=== PATIENT | female | born 1945 | race Caucasian/White ===

== ENCOUNTER 2022-07-01 01:47 | Inpatient (IN) | payer MEDICARE, MEDICAID, SELFPAY ==
[2022-07-01] VITALS (42 sets, daily range): BP systolic 60–147; BP diastolic 27–80; PULSE 76–140; RESP 17–46; TEMP 36.3–40.8; O2SAT 91–99; BMI 25.2
--- NOTE | 2022-07-01 | ECG_ITS ---
Test Reason : SEPSIS Blood Pressure : / mmHG Vent. Rate : 139 BPM Atrial Rate : 139 BPM P-R Int : 136 ms QRS Dur : 084 ms QT Int : 302 ms P-R-T Axes : 033 -85 033 degrees QTc Int : 459 ms Sinus tachycardia Left axis deviation Abnormal ECG When compared with ECG of 05-JUN-2017 11:33, Criteria for Inferior infarct are no longer Present Referred By: Gunner Schmidt Electronically Signed By:MAX VARGAS MD
--- NOTE | ~2022-07-01 | FL_ITS ---
EXAMINATION: XR FLUOROSCOPY WITH IMAGES CLINICAL INFORMATION: Stent placement COMPARISON: CT abdomen pelvis 07/01/2022. TECHNIQUE: Fluoroscopy Supervised By: Dr. Denney. Fluoroscopy Time: 11.6 seconds. Cumulative Dose: 3.33 mGy. DAP: 627 Gycm2. Images: 4. FINDINGS: Digital spot fluoroscopic images demonstrate partial visualization of a right ureterovesicular catheter and partial visualization of multiple right renal calculi. FL/FL guidance in OR IMPRESSION: Intraprocedural fluoroscopy as detailed above.
--- NOTE | ~2022-07-01 | XR_ITS ---
EXAMINATION: XR CHEST CLINICAL INFORMATION: Line insertion. COMPARISON: CXR, 07/01/2022 at 2:[address] from 07/01/2022 at 4:13 AM TECHNIQUE: Frontal view of the chest was obtained. FINDINGS: The tip of the right IJ catheter is at the level of junction of the SVC with the right atrium. No pneumothorax. Lungs are mildly hypoexpanded. No acute pulmonary findings. The small pleural effusions observed on the abdomen CT examination are not well seen radiographically. Cardiac silhouette has normal size and contour. Pulmonary vascular pattern is normal. There is intact appearance of thoracic spinal fusion hardware. There is capsular calcification of bilateral breast implants. XR/XR chest 1V IMPRESSION: * No acute pulmonary disease compared to recent prior radiograph. * No pneumothorax after right IJ line insertion.
--- NOTE | ~2022-07-01 | CT_ITS ---
EXAMINATION: CT ABDOMEN AND PELVIS WITHOUT CONTRAST CLINICAL INFORMATION: UTI. Diffuse abdominal pain. Sepsis. COMPARISON: 06/05/2017 TECHNIQUE: Multidetector volumetric imaging was performed from the superior aspect of the liver through the pubic symphysis. Sagittal and coronal reformatted images were obtained on the technologist's workstation. This CT examination was performed using dose optimization techniques as appropriate, variously including the following: *Automated exposure control *Adjustment of mA and/or kV according to patient size (this includes techniques or standardized protocols for targeted exams where dose is matched to indication/reason for exam; i.e. extremities or head) *Use of iterative reconstruction technique DLP: 627 mGy-cm FINDINGS: LUNG BASES: Small pleural effusions with bibasilar atelectasis. Calcified bilateral breast implants. LIVER, GALLBLADDER, AND BILIARY TREE: The liver is normal in size, shape, and attenuation. No biliary ductal dilatation. Cyst in the left lobe of the liver noted.. Abnormal appearance of the gallbladder appears chronic with wall thickening along the margin. No stones. PANCREAS: Unremarkable. SPLEEN: Unremarkable. ADRENAL GLANDS: Unremarkable. KIDNEYS AND URETERS: The kidneys are normal in size, shape, and attenuation. Mild right hydronephrosis with a 1.4 cm calculus at the right ureteropelvic junction. This is 16 cm from the posterior axillary line and measures 815 Hounsfield units. There are at least 5 additional right renal calculi, measuring up to 1.4 cm at the upper pole, 10 cm from the posterior axillary line. There are 2 left calculi noted measuring up to 0.2 cm, 8 cm from the posterior axillary line. Perinephric stranding bilaterally. BLADDER: Decompressed with Levy catheter in place. GASTROINTESTINAL TRACT: The stomach is decompressed. Normal caliber small bowel. No obstruction. No colonic wall thickening or inflammation. Normal appendix. Sigmoid diverticulosis without diverticulitis. No free air or free fluid. ABDOMINAL WALL: No significant hernia is appreciated. LYMPH NODES: Normal. VASCULAR: Normal caliber aorta with mild atherosclerotic calcification. PELVIC VISCERA: The uterus and adnexa are unremarkable. OSSEOUS STRUCTURES: No acute or suspicious osseous abnormality. Degenerative changes throughout the spine. Mild degenerative changes of the hips. CT/CT abdomen pelvis wo IV con IMPRESSION: 1. Mild right hydronephrosis with a 1.4 cm calculus at the right ureteropelvic junction. Additional bilateral renal calculi. 2. Small pleural effusions with bibasilar atelectasis. Fleischner guidelines were followed.
--- NOTE | ~2022-07-01 | XR_ITS ---
EXAMINATION: XR CHEST CLINICAL INFORMATION: Sepsis COMPARISON: 06/05/2017 TECHNIQUE: Frontal view of the chest was obtained. FINDINGS: Spinal fusion hardware. The lungs are well expanded. There is no focal consolidation, edema, or effusion. No pneumothorax. The cardiomediastinal silhouette is within normal limits. No acute osseous abnormality. Calcified breast implants. XR/XR chest 1V IMPRESSION: No acute pulmonary disease.
--- NOTE | 2022-07-01 02:12 | ED_ITS ---
HPI - General Adult General Chief complaint: Altered Mental Status Stated complaint: sepsis alert Time Seen by Provider: 07/01/22 01:54 Source: patient, EMS and RN notes reviewed Mode of arrival: EMS Limitations: no limitations History of Present Illness HPI narrative: Patient is 77 years old came from [facility] for temperature of 103.4 degrees. He does have history of AFib dementia spinal stenosis lower leg weakness staff noticed patient with more confused and weak temperature was 103.4 degrees pulse rate 122 blood pressure 133/72 her saturation was in high 80s started on 2 L nasal cannula pulse ox improved to 92% labs were done on 06/29 which showed WBC count of 20.6 with left shift last month patient was treated with antibiotic for 3 days for UTI details not available Related Data Allergies Allergy/AdvReac Type Severity Reaction Status Date / Time No Known Allergies Allergy Unverified 02/27/20 19:23 [No Known Allergies*] Review of Systems Review of Systems: Yes Unobtainable due to mental status PMFSH Social History Social History Advance Directives: No Advance Directives Information Provided: Yes Physical Exam ED Vital Signs: Vital Signs - 24 hr 07/01/22 01:53 07/01/22 02:00 07/01/22 03:22 Temperature 105.5 F H 102.7 F H Pulse Rate 140 H 118 H Respiratory Rate 32 H 24 H Blood Pressure 138/60 118/51 L Pulse Oximetry 91 L 97 96 Oxygen Delivery Method Nasal Cannula Nasal Cannula Oxygen Flow Rate 2 07/01/22 03:49 07/01/22 04:05 07/01/22 04:56 Temperature 101.8 F H 99.9 F Pulse Rate 112 H 106 H Respiratory Rate 22 H 46 H Blood Pressure 108/43 L 86/37 L 75/36 L Pulse Oximetry 97 97 Oxygen Delivery Method Nasal Cannula Nasal Cannula Oxygen Flow Rate 2 2 BMI result Body Mass Index 25.2 Appearance: Alert. Oriented X1-2. No acute distress. Feel mom rectal temperature 105.5 degrees Eyes: PERRLA, No Nystagmus ENT: Pharynx normal. Oral Mucosa moist Neck: Normal inspection. Neck supple. CVS: Normal heart rate and rhythm. Pulses normal. Respiratory: No respiratory distress. Equal air entry bilateral, no wheezing/rales/rhonchi Abdomen: Soft and nontender. Bowel sounds are present, no mass palpable, no CVA tenderness Skin: Skin warm and dry. Normal skin color. Normal skin turgor. Extremities: No lower extremity edema. No calf tenderness Neuro: Oriented X 1-2. Bilateral lower extremity weakness. No sensory deficit.No cerebellar signs , cranial nerves II-XII intact Course Reevaluation(s) Reevaluation #1: Patient noticed to have blood pressure 86/37 on arrival patient's blood pressure was 138/60 gradually dropped patient received IV fluid 30 cc/kilograms IV antibiotic Rocephin given 1 L of normal saline patient has hardly few cc urine output Time: 04:07 Reevaluation #2: Patient's blood pressure 82/40 received 3 L of IV fluid, initially was given Rocephin will add Zosyn also was given albumin will start Levophed drip now CT scan of abdomen showed 1.4 cm right ureteral pelvic junction stone with mild hydro. Case discussed with Dr. blum urologist will see the patient once stabilized case discussed Dr. Londono will take the patient to ICU Time: 05:00 Reevaluation #3: Patient is on Levophed drip pending ICU transfer blood pressure in 80s Medications Administered Generic Name Dose Route Start Last Admin Trade Name Freq PRN Reason Stop Dose Admin Norepinephrine Bitartrate 32 250 mls @ 0 mls/hr 07/01/22 05:00 07/01/22 05:25 mg/ Sodium Chloride IV 0.09 mcg/kg/min .Q0M MICHAEL 2.73 mls/hr Titration Protocol Per Protocol Albumin Human 100 mls @ 100 mls/hr 07/01/22 05:00 07/01/22 05:39 Kedbumin 25 % IV 07/01/22 06:59 Infused Q1H MICHAEL Infusion Discontinued Medications Generic Name Dose Route Start Last Admin Trade Name Freq PRN Reason Stop Dose Admin Sodium Chloride 2,500 mls @ 833.3333 mls/hr 07/01/22 01:56 07/01/22 04:08 Ns IV 07/01/22 04:55 Infused .Q3H STA Infusion Ceftriaxone Sodium 1 gm/ 50 mls @ 100 mls/hr 07/01/22 01:59 07/01/22 03:04 Sodium Chloride IV 07/01/22 02:28 Infused ONCE ONE Infusion Potassium Chloride 10 meq in 100 mls @ 100 mls/hr 07/01/22 03:30 07/01/22 05:31 Potassium Chloride/H20 IV 07/01/22 05:29 100 mls/hr Q1H MICHAEL Administration Sodium Chloride 1,000 mls @ 999 mls/hr 07/01/22 03:46 07/01/22 05:18 Ns IV 07/01/22 04:46 Infused .Q1H1M ONE Infusion Piperacillin Sod/Tazobactam 50 mls @ 100 mls/hr 07/01/22 04:26 07/01/22 05:12 Sod 3.375 gm/ Sodium Chloride IV 07/01/22 04:55 Infused ONCE ONE Infusion Ibuprofen 600 mg 07/01/22 01:54 07/01/22 02:25 Ibuprofen 600 Mg Tablet PO 07/01/22 01:55 600 mg ONCE ONE Administration Medical Decision Making Medical Decision Making [facility] Narrative: Patient in septic shock secondary to UTI and right ureteric stone already received IV fluids and antibiotics , started on Levophed drip pending ICU transfer focused exam for sepsis was done at 05:00 05:42 patient blood pressure 90/42 going to ICU now on Levophed drip Differential Diagnosis Differential Diagnoses: The differential diagnosis associated with the presentation includes UTI/pneumonia/septic shocks / bowel perforation/gram-negative bacteremia Consult Healthcare Provider Management of the patient was discussed with: [employer] Care Manager [employer] Paver Operator, urologist Lab Data [facility] Lab Attestation statement: I reviewed the patient's lab results. 07/01/22 02:03 07/01/22 02:04 Labs: Lab Results 07/01/22 07/01/22 07/01/22 Range/Units 02:03 02:03 02:05 WBC 2.6 L (4.8-10.8) X10*3/uL RBC 4.10 L (4.20-5.50) X10*6/uL Hgb 10.9 L (12.0-16.0) g/dl Hct 35.1 L (37.0-47.0) % MCV 85.6 (80.0-98.0) fL MCH 26.6 L (27.0-33.0) pg MCHC 31.1 (31.0-35.0) g/dl RDW 17.5 H (11.0-16.0) % Plt Count 172 (160-400) X10*3/uL MPV 10.6 (9.4-12.3) fL Immature Gran % (Auto) 0.8 H (0.0-0.4) % Neut % (Auto) 88.7 H (45-73) % Lymph % (Auto) 8.9 L (20-40) % Reagan % (Auto) 0.8 L (2-11) % Eos % (Auto) 0.0 (0-4) % Baso % (Auto) 0.8 (0-2) % Lymph # (Auto) 0.2 L (1.2-4.9) X10*3/uL Reagan # (Auto) 0.0 L (0.1-1.2) X10*3/uL Eos # (Auto) 0.0 (0.0-0.4) X10*3/uL Baso # (Auto) 0.0 (0.0-0.2) X10*3/uL Abs Immat Gran (auto) 0.02 (0.00-0.03) X10*3/uL Absolute Neuts (auto) 2.3 (2.0-8.3) x10*3/uL Absolute Nucleated RBC 0.000 (0.0-0.012) X10*3/uL Nucleated RBC % (auto) 0.0 (0.0-0.2) /100WBC Smear Tech's Comments VERIFIED Sodium (135-145) mmol/L Potassium (3.3-5.1) mmol/L Chloride (96-108) mmol/L Carbon Dioxide (22-29) mmol/L Anion Gap (12-20) BUN (9-16) mg/dL Creatinine (0.5-1.4) mg/dL Estim Creat Clear Calc Estimated GFR Random Glucose (60-115) mg/dL Lactic Acid 3.2 H* (0.5-2.0) mmol/L Lactic Acid F/U @ 2Hr (0.5-2.0) mmol/L Calcium (8.4-10.2) mg/dL Total Bilirubin (0.0-1.0) mg/dL AST (5-31) U/L ALT (0-31) U/L Alkaline Phosphatase (39-117) U/L Troponin I High Sens (<3.5-17.0) ng/L B-Natriuretic Peptide (<100) pg/mL Total Protein (6.5-8.0) g/dL Albumin (3.5-5.0) g/dL Urine Color Urine Appearance Urine pH (5.0-9.0) Ur Specific [place] (1.005-1.025) Urine Protein (Neg-Trace) mg/dL Urine Glucose (UA) (Negative) mg/dL Urine Ketones (Negative) mg/dL Urine Blood (Negative) Urine Nitrite (Negative) Ur Leukocyte Esterase (Negative) Urine RBC (0-2) /HPF Urine WBC (0-5) /HPF Ur Squamous Epith Cells (0-2) /HPF Urine Bacteria (None Seen) Hyaline Casts (0-2) /LPF Influenza Type A (PCR) NEGATIVE (Negative) Influenza Type B (PCR) NEGATIVE (Negative) RSV RNA Qual (PCR) NEGATIVE (Negative) SARS-CoV-2 RNA (RT-PCR) NEGATIVE (Negative) 07/01/22 07/01/22 07/01/22 Range/Units 02:43 02:43 02:48 WBC (4.8-10.8) X10*3/uL RBC (4.20-5.50) X10*6/uL Hgb (12.0-16.0) g/dl Hct (37.0-47.0) % MCV (80.0-98.0) fL MCH (27.0-33.0) pg MCHC (31.0-35.0) g/dl RDW (11.0-16.0) % Plt Count (160-400) X10*3/uL MPV (9.4-12.3) fL Immature Gran % (Auto) (0.0-0.4) % Neut % (Auto) (45-73) % Lymph % (Auto) (20-40) % Reagan % (Auto) (2-11) % Eos % (Auto) (0-4) % Baso % (Auto) (0-2) % Lymph # (Auto) (1.2-4.9) X10*3/uL Reagan # (Auto) (0.1-1.2) X10*3/uL Eos # (Auto) (0.0-0.4) X10*3/uL Baso # (Auto) (0.0-0.2) X10*3/uL Abs Immat Gran (auto) (0.00-0.03) X10*3/uL Absolute Neuts (auto) (2.0-8.3) x10*3/uL Absolute Nucleated RBC (0.0-0.012) X10*3/uL Nucleated RBC % (auto) (0.0-0.2) /100WBC Smear Tech's Comments Sodium 138 (135-145) mmol/L Potassium 2.3 L* (3.3-5.1) mmol/L Chloride 114 H (96-108) mmol/L Carbon Dioxide 12 L (22-29) mmol/L Anion Gap 14 (12-20) BUN 24 H (9-16) mg/dL Creatinine 1.33 (0.5-1.4) mg/dL Estim Creat Clear Calc 32.0 Estimated GFR 39 Random Glucose 86 (60-115) mg/dL Lactic Acid (0.5-2.0) mmol/L Lactic Acid F/U @ 2Hr (0.5-2.0) mmol/L Calcium 5.7 L* (8.4-10.2) mg/dL Total Bilirubin 1.0 (0.0-1.0) mg/dL AST 17 (5-31) U/L ALT 10 (0-31) U/L Alkaline Phosphatase 180 H (39-117) U/L Troponin I High Sens 8.8 (<3.5-17.0) ng/L B-Natriuretic Peptide (<100) pg/mL Total Protein 4.3 L (6.5-8.0) g/dL Albumin 1.9 L (3.5-5.0) g/dL Urine Color Dark Yellow Urine Appearance Turbid Urine pH 5.5 (5.0-9.0) Ur Specific [place] 1.015 (1.005-1.025) Urine Protein 300 (3+) H (Neg-Trace) mg/dL Urine Glucose (UA) Negative (Negative) mg/dL Urine Ketones Trace (Negative) mg/dL Urine Blood Moderate (2+) H (Negative) Urine Nitrite Negative (Negative) Ur Leukocyte Esterase Large (3+) H (Negative) Urine RBC 11-20 H (0-2) /HPF Urine WBC >50 H (0-5) /HPF Ur Squamous Epith Cells 6-10 (0-2) /HPF Urine Bacteria 3+ (None Seen) Hyaline Casts 0-2 (0-2) /LPF Influenza Type A (PCR) (Negative) Influenza Type B (PCR) (Negative) RSV RNA Qual (PCR) (Negative) SARS-CoV-2 RNA (RT-PCR) (Negative) 07/01/22 07/01/22 07/01/22 Range/Units 03:16 04:36 04:36 WBC 6.9 (4.8-10.8) X10*3/uL RBC 3.62 L (4.20-5.50) X10*6/uL Hgb 9.7 L (12.0-16.0) g/dl Hct 32.0 L (37.0-47.0) % MCV 88.4 (80.0-98.0) fL MCH 26.8 L (27.0-33.0) pg MCHC 30.3 L (31.0-35.0) g/dl RDW 17.3 H (11.0-16.0) % Plt Count 147 L (160-400) X10*3/uL MPV 10.4 (9.4-12.3) fL Immature Gran % (Auto) 1.6 H (0.0-0.4) % Neut % (Auto) 92.7 H (45-73) % Lymph % (Auto) 4.2 L (20-40) % Reagan % (Auto) 1.2 L (2-11) % Eos % (Auto) 0.0 (0-4) % Baso % (Auto) 0.3 (0-2) % Lymph # (Auto) 0.3 L (1.2-4.9) X10*3/uL Reagan # (Auto) 0.1 (0.1-1.2) X10*3/uL Eos # (Auto) 0.0 (0.0-0.4) X10*3/uL Baso # (Auto) 0.0 (0.0-0.2) X10*3/uL Abs Immat Gran (auto) 0.11 H (0.00-0.03) X10*3/uL Absolute Neuts (auto) 6.4 (2.0-8.3) x10*3/uL Absolute Nucleated RBC 0.000 (0.0-0.012) X10*3/uL Nucleated RBC % (auto) 0.0 (0.0-0.2) /100WBC Smear Tech's Comments Sodium (135-145) mmol/L Potassium (3.3-5.1) mmol/L Chloride (96-108) mmol/L Carbon Dioxide (22-29) mmol/L Anion Gap (12-20) BUN (9-16) mg/dL Creatinine (0.5-1.4) mg/dL Estim Creat Clear Calc Estimated GFR Random Glucose (60-115) mg/dL Lactic Acid (0.5-2.0) mmol/L Lactic Acid F/U @ 2Hr 3.8 H* (0.5-2.0) mmol/L Calcium (8.4-10.2) mg/dL Total Bilirubin (0.0-1.0) mg/dL AST (5-31) U/L ALT (0-31) U/L Alkaline Phosphatase (39-117) U/L Troponin I High Sens (<3.5-17.0) ng/L B-Natriuretic Peptide 82 (<100) pg/mL Total Protein (6.5-8.0) g/dL Albumin (3.5-5.0) g/dL Urine Color Urine Appearance Urine pH (5.0-9.0) Ur Specific [place] (1.005-1.025) Urine Protein (Neg-Trace) mg/dL Urine Glucose (UA) (Negative) mg/dL Urine Ketones (Negative) mg/dL Urine Blood (Negative) Urine Nitrite (Negative) Ur Leukocyte Esterase (Negative) Urine RBC (0-2) /HPF Urine WBC (0-5) /HPF Ur Squamous Epith Cells (0-2) /HPF Urine Bacteria (None Seen) Hyaline Casts (0-2) /LPF Influenza Type A (PCR) (Negative) Influenza Type B (PCR) (Negative) RSV RNA Qual (PCR) (Negative) SARS-CoV-2 RNA (RT-PCR) (Negative) 07/01/22 Range/Units 04:36 WBC (4.8-10.8) X10*3/uL RBC (4.20-5.50) X10*6/uL Hgb (12.0-16.0) g/dl Hct (37.0-47.0) % MCV (80.0-98.0) fL MCH (27.0-33.0) pg MCHC (31.0-35.0) g/dl RDW (11.0-16.0) % Plt Count (160-400) X10*3/uL MPV (9.4-12.3) fL Immature Gran % (Auto) (0.0-0.4) % Neut % (Auto) (45-73) % Lymph % (Auto) (20-40) % Reagan % (Auto) (2-11) % Eos % (Auto) (0-4) % Baso % (Auto) (0-2) % Lymph # (Auto) (1.2-4.9) X10*3/uL Reagan # (Auto) (0.1-1.2) X10*3/uL Eos # (Auto) (0.0-0.4) X10*3/uL Baso # (Auto) (0.0-0.2) X10*3/uL Abs Immat Gran (auto) (0.00-0.03) X10*3/uL Absolute Neuts (auto) (2.0-8.3) x10*3/uL Absolute Nucleated RBC (0.0-0.012) X10*3/uL Nucleated RBC % (auto) (0.0-0.2) /100WBC Smear Tech's Comments Sodium 137 (135-145) mmol/L Potassium 3.0 L D (3.3-5.1) mmol/L Chloride 109 H (96-108) mmol/L Carbon Dioxide 15 L (22-29) mmol/L Anion Gap 16 (12-20) BUN 28 H (9-16) mg/dL Creatinine 1.82 H (0.5-1.4) mg/dL Estim Creat Clear Calc 23.4 Estimated GFR 27 Random Glucose 97 (60-115) mg/dL Lactic Acid (0.5-2.0) mmol/L Lactic Acid F/U @ 2Hr (0.5-2.0) mmol/L Calcium 6.6 L D (8.4-10.2) mg/dL Total Bilirubin (0.0-1.0) mg/dL AST (5-31) U/L ALT (0-31) U/L Alkaline Phosphatase (39-117) U/L Troponin I High Sens (<3.5-17.0) ng/L B-Natriuretic Peptide (<100) pg/mL Total Protein (6.5-8.0) g/dL Albumin (3.5-5.0) g/dL Urine Color Urine Appearance Urine pH (5.0-9.0) Ur Specific [place] (1.005-1.025) Urine Protein (Neg-Trace) mg/dL Urine Glucose (UA) (Negative) mg/dL Urine Ketones (Negative) mg/dL Urine Blood (Negative) Urine Nitrite (Negative) Ur Leukocyte Esterase (Negative) Urine RBC (0-2) /HPF Urine WBC (0-5) /HPF Ur Squamous Epith Cells (0-2) /HPF Urine Bacteria (None Seen) Hyaline Casts (0-2) /LPF Influenza Type A (PCR) (Negative) Influenza Type B (PCR) (Negative) RSV RNA Qual (PCR) (Negative) SARS-CoV-2 RNA (RT-PCR) (Negative) Independent Interpretation I performed an independent interpretation of an: EKG Radiology Impression Radiologist Impression: Sinus tachycardia heart rate 139 beats per minute left axis deviation no acute ST T wave changes no acute ischemia Critical Care Time Critical Care Time Critical Care Time: Yes Total Critical Care Time: 90 Attestation: The patient was critically ill with a high probability of imminent or life threatening deterioration. I spent greater than 95 minutes of discontinuous time evaluating the patient,delivering critical care at the bedside, discussing and evaluating pertinent data with consultants. Critical care time does not include time spent performing separately billable procedures or teaching. Total time spent performing critical care was 90 minutes. Discharge Plan Discharge Clinical Impression: Acute UTI, Septic shock, Kidney stone on right side Patient Disposition: Admitted As Inpatient
[2022-07-01 02:14] LABS: Basophils Percent Auto 0.8 % (0-2); Hematocrit 35.1 % (37.0-47.0); Hemoglobin 10.9 g/dl (12.0-16.0); Imm Gran Abs Auto 0.02 X10*3/uL (0.00-0.03); Imm Gran Pct Auto 0.8 % (0.0-0.4); Lymphocytes Absolute Auto 0.2 X10*3/uL (1.2-4.9); Lymphocytes Percent Auto 8.9 % (20-40); MANUAL DIFF FLAG SCAN; Mean Corpuscular HGB Conc 31.1 g/dl (31.0-35.0); Mean Corpuscular Hemoglobin 26.6 pg (27.0-33.0); Mean Corpuscular Volume 85.6 fL (80.0-98.0); Mean Platelet Volume 10.6 fL (9.4-12.3); Monocytes Percent Auto 0.8 % (2-11); Neutrophils Absolute Auto 2.3 x10*3/uL (2.0-8.3); Neutrophils Percent Auto 88.7 % (45-73); Platelet Count 172 X10*3/uL (160-400); Red Cell Distribution Width 17.5 % (11.0-16.0); SCAN SMEAR FLAG 1; White Blood Count 2.6 X10*3/uL (4.8-10.8)
[2022-07-01] MEDS: 0.9 % Sodium Chloride 2,500 ML 833.33 ML IV (02:20)
[2022-07-01] MEDS: cefTRIAXone sodium 1 GM in 0.9 % Sodium Chloride 50 ML IV (02:24)
[2022-07-01] MEDS: Ibuprofen 600 MG TABLET PO (02:25)
[2022-07-01 02:41] LABS: Lactic Acid 3.2 mmol/L (0.5-2.0)
[2022-07-01 02:42] LABS: SLIDE REVIEW VERIFIED
[2022-07-01 02:50] LABS: Influenza A PCR NEGATIVE (Negative); Influenza B PCR NEGATIVE (Negative); Resp Syncy Virus RNA Qual PCR NEGATIVE (Negative); SARS COV2 PCR INHOUSE NEGATIVE (Negative)
[2022-07-01 03:01] LABS: Appearance Urine Turbid; Color Urine Dark Yellow; Glucose Urine UA Negative (Negative); Leukocyte Esterase Urine Large (3+) (Negative); Nitrite Urine Negative (Negative); PH 5.5 (5.0-9.0); Specific Gravity - Urine 1.015 (1.005-1.025); UMIC TRIGGER UACC YES; Urine Blood Moderate (2+) (Negative); Urine Ketones Trace mg/dL (Negative); Urine Protein 300 (3+) mg/dL (Neg-Trace)
[2022-07-01 03:13] LABS: Troponin-I High Sensitivity 8.8 ng/L (<3.5-17.0)
[2022-07-01 03:15] LABS: Alanine Aminotransferase 10 U/L (0-31); Albumin Level 1.9 g/dL (3.5-5.0); Alkaline Phosphatase 180 U/L (39-117); Anion Gap 14 (12-20); Aspartate Amino Transferase 17 U/L (5-31); Blood Urea Nitrogen 24 mg/dL (9-16); Calcium 5.7 mg/dL (8.4-10.2); Carbon Dioxide 12 mmol/L (22-29); Chloride 114 mmol/L (96-108); Estimated Glomerular Filt Rate 39; Glucose Random 86 mg/dL (60-115); Potassium 2.3 mmol/L (3.3-5.1); Sodium 138 mmol/L (135-145); Total Protein 4.3 g/dL (6.5-8.0)
[2022-07-01 03:22] LABS: Basophils Percent Auto 0.3 % (0-2); Hemoglobin 9.7 g/dl (12.0-16.0); Imm Gran Abs Auto 0.11 X10*3/uL (0.00-0.03); Imm Gran Pct Auto 1.6 % (0.0-0.4); Lymphocytes Absolute Auto 0.3 X10*3/uL (1.2-4.9); Lymphocytes Percent Auto 4.2 % (20-40); MANUAL DIFF FLAG SCAN; Mean Corpuscular HGB Conc 30.3 g/dl (31.0-35.0); Mean Corpuscular Hemoglobin 26.8 pg (27.0-33.0); Mean Corpuscular Volume 88.4 fL (80.0-98.0); Mean Platelet Volume 10.4 fL (9.4-12.3); Monocytes Absolute Auto 0.1 X10*3/uL (0.1-1.2); Monocytes Percent Auto 1.2 % (2-11); Neutrophils Absolute Auto 6.4 x10*3/uL (2.0-8.3); Neutrophils Percent Auto 92.7 % (45-73); Platelet Count 147 X10*3/uL (160-400); Red Blood Count 3.62 X10*6/uL (4.20-5.50); Red Cell Distribution Width 17.3 % (11.0-16.0); SCAN SMEAR FLAG 1; White Blood Count 6.9 X10*3/uL (4.8-10.8)
[2022-07-01 03:26] LABS: UACC Culture Trigger YES; WBC Urine >50 /HPF (0-5)
[2022-07-01 03:27] LABS: Bacteria Urine 3+ (None Seen); Hyaline Casts Urine 0-2 /LPF (0-2)
--- NOTE | 2022-07-01 03:35 | PC.NURSE ---
patient presents to the emergency room with increased confusion per nursing facility staff, patient oriented to person only. responds to stimuli but not answering questions appropriately. patient febrile and tachycardic on arrival to ED, iv lines placed, labs sent, blood cultures sent, cxray done and iv fluids/abx running per sepsis protocol. temp sensing castro catheter placed, patient bladder scanned for 0 mL in bladder. patient on radiation monitor will continue to monitor
[2022-07-01] MEDS: Potassium Chloride/H20 10 MEQ/100 ML PIGGYBACK 100 MEQ IV ×2 (03:49→05:31)
--- NOTE | 2022-07-01 03:50 | P.HPHOSP_ITS ---
History of Present Illness Date of Service: 07/01/22 Chief Complaint: Fever PMFSH Social History Advance Directives: No Advance Directives Information Provided: Yes Meds Allergies Allergy/AdvReac Type Severity Reaction Status Date / Time No Known Allergies Allergy Unverified 02/27/20 19:23 [No Known Allergies*] Active Medications: Current Medications Sodium Chloride (Ns) 2,500 mls @ 833.3333 mls/hr IV .Q3H STA Stop: 07/01/22 04:55 Last Admin: 07/01/22 02:20 Dose: 833.33 mls/hr Potassium Chloride (Potassium Chloride/H20) 10 meq in 100 mls @ 100 mls/hr IV Q1H MICHAEL Stop: 07/01/22 05:29 Last Admin: 07/01/22 03:49 Dose: 100 mls/hr Sodium Chloride (Ns) 1,000 mls @ 999 mls/hr IV .Q1H1M ONE Stop: 07/01/22 04:46 Physical Exam Vital Signs and Narrative: Vital Signs: Last Vital Signs Temp 101.8 F H 07/01/22 03:49 Pulse 112 H 07/01/22 03:49 Resp 22 H 07/01/22 03:49 BP 108/43 L 07/01/22 03:49 Pulse Ox 97 07/01/22 03:49 O2 Del Method 07/01/22 03:49 O2 Flow Rate 2 07/01/22 03:49 Oxygen Flow Rate 2 07/01/22 01:53 BMI result Body Mass Index 25.2 Results Labs 07/01/22 03:16 07/01/22 02:43 Labs: Laboratory Results - last 24 hr 07/01/22 07/01/22 07/01/22 02:03 02:03 02:05 MCV 85.6 MCH 26.6 L MCHC 31.1 RDW 17.5 H Plt Count 172 MPV 10.6 Immature Gran % (Auto) 0.8 H Neut % (Auto) 88.7 H Lymph % (Auto) 8.9 L Dillon % (Auto) 0.8 L Eos % (Auto) 0.0 Baso % (Auto) 0.8 Lymph # (Auto) 0.2 L Dillon # (Auto) 0.0 L Eos # (Auto) 0.0 Baso # (Auto) 0.0 Abs Immat Gran (auto) 0.02 Absolute Neuts (auto) 2.3 Absolute Nucleated RBC 0.000 Nucleated RBC % (auto) 0.0 Smear Tech's Comments VERIFIED Anion Gap Estim Creat Clear Calc Estimated GFR Random Glucose Lactic Acid 3.2 H* Calcium Total Bilirubin AST ALT Alkaline Phosphatase Troponin I High Sens Total Protein Albumin Urine Color Urine Appearance Urine pH Ur Specific [place] Urine Protein Urine Glucose (UA) Urine Ketones Urine Blood Urine Nitrite Ur Leukocyte Esterase Urine RBC Urine WBC Ur Squamous Epith Cells Urine Bacteria Hyaline Casts Influenza Type A (PCR) NEGATIVE Influenza Type B (PCR) NEGATIVE RSV RNA Qual (PCR) NEGATIVE SARS-CoV-2 RNA (RT-PCR) NEGATIVE 07/01/22 07/01/22 07/01/22 02:43 02:43 02:48 MCV MCH MCHC RDW Plt Count MPV Immature Gran % (Auto) Neut % (Auto) Lymph % (Auto) [place] % (Auto) Eos % (Auto) Baso % (Auto) Lymph # (Auto) Dillon # (Auto) Eos # (Auto) Baso # (Auto) Abs Immat Gran (auto) Absolute Neuts (auto) Absolute Nucleated RBC Nucleated RBC % (auto) Smear Tech's Comments Anion Gap 14 Estim Creat Clear Calc 32.0 Estimated GFR 39 Random Glucose 86 Lactic Acid Calcium 5.7 L* Total Bilirubin 1.0 AST 17 ALT 10 Alkaline Phosphatase 180 H Troponin I High Sens 8.8 Total Protein 4.3 L Albumin 1.9 L Urine Color Dark Yellow Urine Appearance Turbid Urine pH 5.5 Ur Specific [place] 1.015 Urine Protein 300 (3+) H Urine Glucose (UA) Negative Urine Ketones Trace Urine Blood Moderate (2+) H Urine Nitrite Negative Ur Leukocyte Esterase Large (3+) H Urine RBC 11-20 H Urine WBC >50 H Ur Squamous Epith Cells 6-10 Urine Bacteria 3+ Hyaline Casts 0-2 Influenza Type A (PCR) Influenza Type B (PCR) RSV RNA Qual (PCR) SARS-CoV-2 RNA (RT-PCR) 07/01/22 03:16 MCV 88.4 MCH 26.8 L MCHC 30.3 L RDW 17.3 H Plt Count 147 L MPV 10.4 Immature Gran % (Auto) 1.6 H Neut % (Auto) 92.7 H Lymph % (Auto) 4.2 L [place] % (Auto) 1.2 L Eos % (Auto) 0.0 Baso % (Auto) 0.3 Lymph # (Auto) 0.3 L Dillon # (Auto) 0.1 Eos # (Auto) 0.0 Baso # (Auto) 0.0 Abs Immat Gran (auto) 0.11 H Absolute Neuts (auto) 6.4 Absolute Nucleated RBC 0.000 Nucleated RBC % (auto) 0.0 Smear Tech's Comments Anion Gap Estim Creat Clear Calc Estimated GFR Random Glucose Lactic Acid Calcium Total Bilirubin AST ALT Alkaline Phosphatase Troponin I High Sens Total Protein Albumin Urine Color Urine Appearance Urine pH Ur Specific [place] Urine Protein Urine Glucose (UA) Urine Ketones Urine Blood Urine Nitrite Ur Leukocyte Esterase Urine RBC Urine WBC Ur Squamous Epith Cells Urine Bacteria Hyaline Casts Influenza Type A (PCR) Influenza Type B (PCR) RSV RNA Qual (PCR) SARS-CoV-2 RNA (RT-PCR) Imaging Radiologist's Impressions: Impressions Chest X-Ray 07/01/22 02:55 IMPRESSION: No acute pulmonary disease. Assessment and Plan Time Spent With Patient Time: Total time managing care of this patient today ____ minutes. Quality VTE VTE Risk Level:: Medical - moderate - high VTE Device Contraindication: Treatment Not Indicated VTE Drug Contraindication: N/A - Med Ordered
[2022-07-01 04:08] LABS: Reflex Lactate? Lactic Acid Added
[2022-07-01] MEDS: 0.9 % Sodium Chloride 1,000 ML 999 ML IV (04:08)
[2022-07-01] MEDS: Piperacillin Sodium/Tazobactam 3.375 GM in 0.9 % Sodium Chloride 50 ML IV ×3 (04:49→17:41)
[2022-07-01] MEDS: Albumin Human 25 % 100 ML IV ×2 (04:55→05:10)
[2022-07-01 05:01] LABS: Anion Gap 16 (12-20); Blood Urea Nitrogen 28 mg/dL (9-16); Calcium 6.6 mg/dL (8.4-10.2); Carbon Dioxide 15 mmol/L (22-29); Chloride 109 mmol/L (96-108); Creatinine Clr Calc Pharmacy 23.4; Estimated Glomerular Filt Rate 27; Glucose Random 97 mg/dL (60-115); Sodium 137 mmol/L (135-145)
[2022-07-01 05:03] LABS: B Type Natriuretic Peptide 82 pg/mL (<100); ~Lactic Acid-LAB USE ONLY 3.8 mmol/L (0.5-2.0)
--- NOTE | 2022-07-01 05:03 | PC.NURSE ---
per lab Daniel critical results lactic acid 3.8; IZABEL Feliciano and provider notified
--- NOTE | 2022-07-01 05:09 | PM.CCHP ---
History of Present Illness Date of Service: 07/01/22 Attending physician on admission: Parvez Valderrama Chief Complaint: SEPSIS, obstructive uropathy, DORON HPI: ?77-year-old female who has a history of spinal stenosis with significant lower extremity weakness and is wheelchair dependent, history of AFib per ed records, forgetfulness but no dementia, prior UTIs and sepsis for which she has been admitted and treated [facility] in 2016 where she was admitted and according to the daughter she might had had a surgery and stent placement in 1 of her kidneys, resides at a assisted from where she was transferred with complaints of generalized ?weakness and fever of 103.4, heart rate of 122 but otherwise normotensive.? ? Reportedly labs were done 2 days ago at the facility and showed a white count of 20.6 with a left shift, she also had mental status changes from her baseline she was transferred to the emergency room.? Her initial workup revealed a normotensive but febrile patient with a T-max of 105.5 degrees F (not sure if this is accurate) heart rate of 140, she was reported not to be in any acute distress but was neutropenic with white count 2.6, H&H of 10.9 and 35.1 respectively, sodium 138, potassium 2.3, chloride 114, carbon dioxide 12, anion gap 14, BUN 24, creatinine 1.33, calcium 5.7, albumin 1.9. ?Lactic acid 3.2. ?Her urinalysis appeared grossly abnormal with turbid urine, proteinuria 3+, hematuria, large leukocyte esterases with more than 50 white blood cells although there is presence of epithelial cells and 3+ bacteria. ?Influenza RSV and COVID negative. ?CT abdomen pelvis without contrast showed mild right hydronephrosis with a 1.4 cm calculi at the right ureteropelvic junction.? Additional bilateral renal calculi.? Small pleural effusions with bibasilar atelectasis. ? Patient was given 3.5 L of fluid and although she was initially normotensive as they brought her temperature down, her blood pressure also went down as low as 70 systolic. ?Patient was initially given Rocephin but this was switched to Zosyn, albumin and potassium replacement had been started, the patient was also started on Levophed. ?A urologist has not been contacted yet. ?The patient will be transferred to ICU for further care. ? ROS:? Unable to obtain ? Past Medical History:? As above ? Past Surgical History: cystoscopy and possible stent placement Thoracic Spine Surgery with hardware Family history:? Noncontributory ? Social History:? Lives at a [facility] facility since [facility], does not ambulate, remote history of smoking during her younger years, no history of alcohol or drugs. I spoke to her daughter who is here and she would like to respect the patient's wishes of DNR DNI, medical treatment Only. ? CODE STATUS: DNR DNI per records on file ? Allergies: NKDA ? Home Medications: See Med Rec ? SEPSIS EXAM DONE AT 06:10 A.M. VS: ?80/41, 113, 41, 977 F, 97% on 2 L nasal cannula. General:? Alert oriented x2, Not to place, no acute distress.? Speaking full sentences.? Speech is well articulated, thought process is coherent, appears forgetful and takes some time to answer..? Following all commands. Skin:? Intact, no lesions, edema, erythema, clubbing or cyanosis.? No ulcers. HEENT:? Head is normocephalic, atraumatic, pupils equal round reactive to light accommodation bilaterally.? Extraocular movements appear intact.? Buccal mucosa is moist, Neck is supple without lymphadenopathy. Cardiac:? irregularly irregular 120 beats per minute. No murmurs, rubs, gallops. Pulmonary:? Clear to auscultation, no wheezes, rales or rhonchi. Abdomen:? Protuberant, positive bowel sounds in all 4 quadrants.? Soft, Appears to grimace upon pressing the right flank area, unable to elicit CVA tenderness. No rebound. No guarding. Musculoskeletal:? Patient moves the upper extremity on flexion-extension upon request, lower extremities movement is limited to a slight flexion and extension on her own and upon request due to chronic weakness, there is noticeable atrophy of the lower extremities but no unilateral weakness, no edema. No asymmetry of the legs. Neurologic:? As above, cranial nerves 2-12 are grossly intact.? No focal deficits noted. Vascular:? 2+ pulses upper and lower extremities distally. Less than 2nd capillary refill of the finger, toes bilaterally upper and lower extremities. ? SIGNIFICANT LABORATORY DATA:? As above ? REVIEW OF IMAGES: ?As above ? Chest x-ray no acute pulmonary disease ? EKG REVIEW: ?To my view this shows sinus tachycardia rate of 139 beats per minute.? There is no ST elevations, no ST depressions.? QTC 3 O2.? No comparison available. ? ASSESSMENT : 1. Acute septic shock 2. Urinary tract infection 3. Obstructive uropathy of right kidney with mild right hydronephrosis 4. Acute kidney injury secondary to the above 5. Acute hypokalemia 6. Hypoalbuminemia likely chronic 7. Metabolic and Lactic acidosis due to the above 8. Hypocalcemia with corrected calcium level of 8.18 9. Proteinuria 10. Normocytic anemia likely of chronic disease, rule out iron deficiency and microscopic bleeding. 11. Acute thrombocytopenia likely due to current infection 12. Metabolic encephalopathy without history of underlying dementia ? PLAN OF CARE: Patient will be admitted to the ICU, Levy catheter, monitor I and O's closely, continue Levophed and albumin, urology consult repeat labs later on in the day, replete potassium and calcium.? Will follow-up on lactic acid and follow-up on her sepsis status.? So far she has received adequate amount of IV fluids although she appears to be dehydrated therefore I will give her a continuous slow infusion, blood cultures are pending and will place her on a schedule Zosyn which will provide Gram-negative coverage including Pseudomonas specially given that in the past she has had E coli UTI. Risk and benefits were discussed in detail with the patient's daughter about placing a central line, she agrees. 0625 am I spoke to the urologist Dr. Miller, she is aware of the patient's clinical scenario and my concern for her worsening renal failure, lactic acidosis and obstructive uropathy even though she only has mild hydronephrosis per CT report, she will come to see the patient. ? GI PROPHYLAXIS:? Oral PPI DVT PROPHYLAXIS:? Heparin subQ q.12 hours ? Critical care time used for critical evaluation of this patient, diagnosis, treatment and coordination of care, review her records and documentation TOTAL CRITICAL CARE TIME?90 MIN . discussion and coordination with consultants, completely separate from any procedures performed. Patient's care was discussed in detail with Dr. Valderrama.?He is aware of all the above as well as the plan of care for this patient. [facility] Social History Social History Household Members: Other Household Members Other:: NA Housing: [facility] Patient Tobacco Use Status: Former Tobacco user Tobacco use type: Cigarette Smoked in Last 30 Days: No e-Cigarette/Vaping Use: Never Used Patient Interested in Nicotine Replacement: No (NA) Patient Given Instructions on How to Stop Smoking: No (NA) Second Hand Smoke Exposure: No Use of substances other than those prescribed or required for medical reasons: No Substance Use Type: Caffiene Substance Use Type Other:: 1-2 cup of tea Substance Use Frequency: Daily Currently Displaying Signs/Symptoms of Drug Intoxication Withdrawal: No Have you been hit, kicked, punched, or otherwise hurt by someone within the past year? If so, by whom?: No Do you feel safe in your current relationship?: No Current Relationship Is there a partner from a previous relationship who is making you feel unsafe now?: No Are you made to feel afraid or neglected: No Spiritual Healthcare Practices: Praying Advance Directives: No Advance Directives Information Provided: Yes Do you have thoughts of harming others: None Recently lost weight without trying: No How much weight loss: Not applicable Eating poorly because of decreased appetite: No Nutrition screen score: 0 Nutrition Risks: No Nutritional Risk Patient : No : No Poor oral hygiene: No service: No Current occupational status: retired [employer] Allergies Allergy/AdvReac Type Severity Reaction Status Date / Time No Known Allergies Allergy Verified 07/01/22 09:35 [No Known Allergies*] Active Medications: Current Medications Acetaminophen (Acetaminophen 325 Mg Tablet) 650 mg PO Q6H PRN PRN Reason: Pain, Mild (Pain Scale 1-3) Heparin Sodium (Porcine) (Heparin Sodium,Porcine 5,000 Unit/Ml Vial) 5,000 unit SUBCUT Q12H [facility] Potassium Chloride (Potassium Chloride/H20) 10 meq in 100 mls @ 100 mls/hr IV Q1H [facility] Stop: 07/01/22 05:29 Last Infusion: 07/01/22 04:57 Dose: Infused Norepinephrine Bitartrate 32 (mg/ Sodium Chloride) 250 mls @ 0 mls/hr IV .Q0M MICHAEL; Protocol Albumin Human (Kedbumin 25 %) 100 mls @ 100 mls/hr IV Q1H [facility] Stop: 07/01/22 06:59 Last Admin: 07/01/22 04:55 Dose: 100 mls/hr Piperacillin Sod/Tazobactam (Sod 3.375 gm/ Sodium Chloride) 50 mls @ 100 mls/hr IV Q6H [facility] Melatonin (Melatonin 3 Mg Tablet) 6 mg PO BEDTIME PRN PRN Reason: Insomnia Ondansetron HCl (Ondansetron Hcl 4 Mg/2 Ml Vial) 4 mg IVPUSH Q8H PRN PRN Reason: Nausea and Vomiting Sodium Chloride (0.9 % Sodium Chloride Flush 3 Ml Syringe) 3 ml IVFLUSH QSHIFT [facility] Home Medications Medication Instructions Recorded Confirmed Last Taken Type acetaminophen 325 mg tablet 650 mg PO Q4H PRN Pain 07/01/22 07/01/22 Unknown History (Tylenol) atorvastatin 40 mg tablet 1 tab PO BEDTIME 07/01/22 07/01/22 Unknown History bisacodyl 10 mg rectal suppository 10 mg AK DAILY PRN Constipation 07/01/22 07/01/22 Unknown History duloxetine 60 mg capsule,delayed 1 cap PO DAILY 07/01/22 07/01/22 Unknown History release levothyroxine 112 mcg tablet 1 tab PO DAILY@0600 07/01/22 07/01/22 Unknown History magnesium hydroxide 400 mg/5 mL 30 ml PO DAILY PRN Constipation 07/01/22 07/01/22 Unknown History oral suspension (Milk of Magnesia) magnesium oxide 400 mg (241.3 mg 400 mg PO DAILY 07/01/22 07/01/22 Unknown History magnesium) tablet melatonin 3 mg tablet 3 mg PO BEDTIME 07/01/22 07/01/22 Unknown History metoprolol tartrate 25 mg tablet 0.5 tab PO BID 07/01/22 07/01/22 Unknown History morphine 15 mg tablet,extended 1 tab PO DAILY 07/01/22 07/01/22 Unknown History release ondansetron HCl 4 mg tablet 4 mg PO Q6H PRN Nausea And Vomiting 07/01/22 07/01/22 Unknown History pantoprazole 20 mg tablet,delayed 1 tab PO DAILY@0630 07/01/22 07/01/22 Unknown History release rivaroxaban 20 mg tablet (Xarelto) 1 tab PO DAILY@1700 07/01/22 07/01/22 Unknown History sennosides 8.6 mg tablet (senna) 8.6 mg PO BEDTIME 07/01/22 07/01/22 Unknown History sodium phosphates 19 gram-7 118 ml AK DAILY PRN Constipation 07/01/22 07/01/22 Unknown History gram/118 mL enema (Fleet Enema) Physical Exam Vital Signs: Vital Signs: Last Vital Signs Temp 99.7 F 07/01/22 05:00 Pulse 103 H 07/01/22 05:00 Resp 41 H 07/01/22 05:00 BP 82/40 L 07/01/22 05:00 Pulse Ox 97 07/01/22 05:00 O2 Del Method 07/01/22 05:00 O2 Flow Rate 2 07/01/22 05:00 Oxygen Flow Rate 2 07/01/22 01:53 BMI result Body Mass Index 25.2 Results Labs 07/01/22 03:16 07/01/22 04:36 Labs: Laboratory Results - last 24 hr 07/01/22 07/01/22 07/01/22 02:03 02:03 02:05 MCV 85.6 MCH 26.6 L MCHC 31.1 RDW 17.5 H Plt Count 172 MPV 10.6 Immature Gran % (Auto) 0.8 H Neut % (Auto) 88.7 H Lymph % (Auto) 8.9 L [place] % (Auto) 0.8 L Eos % (Auto) 0.0 Baso % (Auto) 0.8 Lymph # (Auto) 0.2 L [place] # (Auto) 0.0 L Eos # (Auto) 0.0 Baso # (Auto) 0.0 Abs Immat Gran (auto) 0.02 Absolute Neuts (auto) 2.3 Absolute Nucleated RBC 0.000 Nucleated RBC % (auto) 0.0 Smear Tech's Comments VERIFIED Anion Gap Estim Creat Clear Calc Estimated GFR Random Glucose Lactic Acid 3.2 H* Lactic Acid F/U @ 2Hr Calcium Total Bilirubin AST ALT Alkaline Phosphatase Troponin I High Sens B-Natriuretic Peptide Total Protein Albumin Urine Color Urine Appearance Urine pH Ur Specific [place] Urine Protein Urine Glucose (UA) Urine Ketones Urine Blood Urine Nitrite Ur Leukocyte Esterase Urine RBC Urine WBC Ur Squamous Epith Cells Urine Bacteria Hyaline Casts Influenza Type A (PCR) NEGATIVE Influenza Type B (PCR) NEGATIVE RSV RNA Qual (PCR) NEGATIVE SARS-CoV-2 RNA (RT-PCR) NEGATIVE 07/01/22 07/01/22 07/01/22 02:43 02:43 02:48 MCV MCH MCHC RDW Plt Count MPV Immature Gran % (Auto) Neut % (Auto) Lymph % (Auto) [place] % (Auto) Eos % (Auto) Baso % (Auto) Lymph # (Auto) [place] # (Auto) Eos # (Auto) Baso # (Auto) Abs Immat Gran (auto) Absolute Neuts (auto) Absolute Nucleated RBC Nucleated RBC % (auto) Smear Tech's Comments Anion Gap 14 Estim Creat Clear Calc 32.0 Estimated GFR 39 Random Glucose 86 Lactic Acid Lactic Acid F/U @ 2Hr Calcium 5.7 L* Total Bilirubin 1.0 AST 17 ALT 10 Alkaline Phosphatase 180 H Troponin I High Sens 8.8 B-Natriuretic Peptide Total Protein 4.3 L Albumin 1.9 L Urine Color Dark Yellow Urine Appearance Turbid Urine pH 5.5 Ur Specific [place] 1.015 Urine Protein 300 (3+) H Urine Glucose (UA) Negative Urine Ketones Trace Urine Blood Moderate (2+) H Urine Nitrite Negative Ur Leukocyte Esterase Large (3+) H Urine RBC 11-20 H Urine WBC >50 H Ur Squamous Epith Cells 6-10 Urine Bacteria 3+ Hyaline Casts 0-2 Influenza Type A (PCR) Influenza Type B (PCR) RSV RNA Qual (PCR) SARS-CoV-2 RNA (RT-PCR) 07/01/22 07/01/22 07/01/22 03:16 04:36 04:36 MCV 88.4 MCH 26.8 L MCHC 30.3 L RDW 17.3 H Plt Count 147 L MPV 10.4 Immature Gran % (Auto) 1.6 H Neut % (Auto) 92.7 H Lymph % (Auto) 4.2 L [place] % (Auto) 1.2 L Eos % (Auto) 0.0 Baso % (Auto) 0.3 Lymph # (Auto) 0.3 L [place] # (Auto) 0.1 Eos # (Auto) 0.0 Baso # (Auto) 0.0 Abs Immat Gran (auto) 0.11 H Absolute Neuts (auto) 6.4 Absolute Nucleated RBC 0.000 Nucleated RBC % (auto) 0.0 Smear Tech's Comments Anion Gap Estim Creat Clear Calc Estimated GFR Random Glucose Lactic Acid Lactic Acid F/U @ 2Hr 3.8 H* Calcium Total Bilirubin AST ALT Alkaline Phosphatase Troponin I High Sens B-Natriuretic Peptide 82 Total Protein Albumin Urine Color Urine Appearance Urine pH Ur Specific [place] Urine Protein Urine Glucose (UA) Urine Ketones Urine Blood Urine Nitrite Ur Leukocyte Esterase Urine RBC Urine WBC Ur Squamous Epith Cells Urine Bacteria Hyaline Casts Influenza Type A (PCR) Influenza Type B (PCR) RSV RNA Qual (PCR) SARS-CoV-2 RNA (RT-PCR) 07/01/22 04:36 MCV MCH MCHC RDW Plt Count MPV Immature Gran % (Auto) Neut % (Auto) Lymph % (Auto) [place] % (Auto) Eos % (Auto) Baso % (Auto) Lymph # (Auto) [place] # (Auto) Eos # (Auto) Baso # (Auto) Abs Immat Gran (auto) Absolute Neuts (auto) Absolute Nucleated RBC Nucleated RBC % (auto) Smear Tech's Comments Anion Gap 16 Estim Creat Clear Calc 23.4 Estimated GFR 27 Random Glucose 97 Lactic Acid Lactic Acid F/U @ 2Hr Calcium 6.6 L D Total Bilirubin AST ALT Alkaline Phosphatase Troponin I High Sens B-Natriuretic Peptide Total Protein Albumin Urine Color Urine Appearance Urine pH Ur Specific [place] Urine Protein Urine Glucose (UA) Urine Ketones Urine Blood Urine Nitrite Ur Leukocyte Esterase Urine RBC Urine WBC Ur Squamous Epith Cells Urine Bacteria Hyaline Casts Influenza Type A (PCR) Influenza Type B (PCR) RSV RNA Qual (PCR) SARS-CoV-2 RNA (RT-PCR) Imaging Radiologist's Impressions: Impressions Chest X-Ray 07/01/22 02:55 IMPRESSION: No acute pulmonary disease. Abdomen/Pelvis CT 07/01/22 04:24 IMPRESSION: 1. Mild right hydronephrosis with a 1.4 cm calculus at the right ureteropelvic junction. Additional bilateral renal calculi. 2. Small pleural effusions with bibasilar atelectasis. Fleischner guidelines were followed. Assessment and Plan Time Spent With Patient Time: Total time managing care of this patient today ____ minutes.
--- NOTE | 2022-07-01 05:14 | PC.NURSE ---
patient blood pressure continuously dropping becoming lower and lower, 75/36 despite fluid resuscitation.patient to be admitted to ICU. iv abx, iv fluids, iv albumin given. levofed started at 0.05 mcg/kg/hr. daughter updated via phone call
[2022-07-01] MEDS: Lactated Ringers 1,000 ML 999 ML IVCONT (06:11)
[2022-07-01 06:39] LABS: Reflex Lactate? 2 Y
--- NOTE | 2022-07-01 06:52 | W.PM.CCHP ---
Procedures Date of Service Date of Service: 07/01/22 Central Line Placement Right IJ: Central Line Comments: Consent was obtained from the patient's daughter as she is here in the hospital, risk and benefits were discussed in detail with her and she verbally consented to the procedure.?? A quick time-out was made for clarification and proper patient identification, patient was positioned, landmarks were identified, US used to locate a? large compressible IJ.? The right neck was widely prepped and draped in a full sterile fashion.? Ultrasound was used to locate again the right IJ, the vein was cannulated on the 1st pass with an 18 gauge thin needle, dark nonpulsatile blood return was obtained.? The wire was threaded, a small incision was made at its base and dilator inserted.? A triple-lumen central venous catheter was advanced into the vein up to the hub without problems, wired was removed. Ports had? good blood return and flushed x3.? The catheter was secured with 3 sutures at 3 sites, a Biopatch and dry sterile dressing were applied. Post procedure chest x-ray showed the line to be in good position without pneumothorax.? No bleeding or complications noted. Consent for Procedure: Elective - informed consent obtained Time out performed: Yes Sterile Technique Used: Yes Patient placed on monitor/pulse ox: Yes prep: mask and gloves Central line prep: Chlorhexidine scrub Local anesthesia used: lidocaine 1% Amount of anesthesia used (ml): 5 Central line lumen inserted: triple (16 cm) Post procedure: sutured in place, good blood return, all ports aspirated, flushed, capped and sterile dressing applied Post procedure x-ray: tip of catheter in good position and no pneumothorax seen Patient tolerated procedure: well and no complications Complications: none
[2022-07-01] MEDS: Calcium Gluconate/NaCl,Iso-Osm 1 GM/50 ML PLAST..BAG IV (07:20)
[2022-07-01] MEDS: Albumin Human 25 % 100 ML 133.33 ML IV ×2 (07:20→08:33)
[2022-07-01] MEDS: 0.9 % Sodium Chloride Flush 3 ML SYRINGE IVFLUSH ×2 (07:21→16:35)
[2022-07-01] MEDS: Heparin Sodium,Porcine 5,000 UNIT/ML VIAL 5000 UNIT SUBCUT ×2 (07:21→20:24)
[2022-07-01] MEDS: Potassium Chloride/H20 40 MEQ/100 ML PIGGYBACK 100 MEQ IV (07:21)
[2022-07-01 07:34] LABS: Hematocrit 27.9 % (37.0-47.0); Hemoglobin 8.4 g/dl (12.0-16.0); Mean Corpuscular HGB Conc 30.1 g/dl (31.0-35.0); Mean Corpuscular Hemoglobin 26.3 pg (27.0-33.0); Mean Corpuscular Volume 87.5 fL (80.0-98.0); Mean Platelet Volume 10.2 fL (9.4-12.3); Platelet Count 177 X10*3/uL (160-400); Red Blood Count 3.19 X10*6/uL (4.20-5.50); Red Cell Distribution Width 17.5 % (11.0-16.0); White Blood Count 21.4 X10*3/uL (4.8-10.8)
[2022-07-01 07:49] LABS: Anion Gap 16 (12-20); Blood Urea Nitrogen 26 mg/dL (9-16); Calcium 6.9 mg/dL (8.4-10.2); Carbon Dioxide 15 mmol/L (22-29); Chloride 110 mmol/L (96-108); Creatinine Clr Calc Pharmacy 23.3; Estimated Glomerular Filt Rate 27; Glucose Random 107 mg/dL (60-115); Potassium 3.2 mmol/L (3.3-5.1); Sodium 138 mmol/L (135-145)
[2022-07-01 07:58] LABS: Band Neutrophils Percent 24 % (3-5); Lymphocytes Absolute Manual 0.2 X10*3/uL (1.2-4.9); Lymphocytes Percent Manual 1 % (20-40); Monocytes Absolute Manual 0.9 X10*3/uL (0.1-1.2); Monocytes Percent Manual 4 % (2-11); Neutrophils Absolute Manual 20.3 X10*3/uL (2.0-8.3); Neutrophils Percent Manual 71 % (45-73)
[2022-07-01 08:01] LABS: RBC Morphology NOTED
[2022-07-01 08:02] LABS: Acanthocytes 3+ (>5) /OIF; Dohle Bodies PRESENT; Platelet Estimate NORMAL (NORMAL); Platelet Morphology Comment NORMAL; Polychromasia 1+ (0-2) /OIF; Toxic Vacuolation PRESENT
[2022-07-01 08:07] LABS: ~Lactic Acid-LAB USE ONLY 3.1 mmol/L (0.5-2.0)
--- NOTE | 2022-07-01 08:32 | P.CNUR_ITS ---
History of Present Illness Consult details Consult date: 07/01/22 Narrative: 77 years old came from [facility] for temperature of 103.4 degrees.?PMH h/o stones, AFib dementia spinal stenosis lower leg weakness staff noticed patient with more confused and weak temperature was 103.4 degrees 06/29 which showed WBC count of 20.6, on admission, 2.[address] imaging 1.4 cm right UPJ stone with mild hydro. The patient is on high dose pressors. I have discussed with the patient and daughter plan for right ureteral stent placement. ? Review of Systems Review of Systems: 10 point ROS negative other than stated in [facility] Social History Social History Advance Directives: No Advance Directives Information Provided: Yes Meds Allergies Allergy/AdvReac Type Severity Reaction Status Date / Time No Known Allergies Allergy Unverified 02/27/20 19:23 [No Known Allergies*] Active Medications: Current Medications Acetaminophen (Acetaminophen 325 Mg Tablet) 650 mg PO Q6H PRN PRN Reason: Pain, Mild (Pain Scale 1-3) Heparin Sodium (Porcine) (Heparin Sodium,Porcine 5,000 Unit/Ml Vial) 5,000 unit SUBCUT Q12H [facility] Last Admin: 07/01/22 07:21 Dose: 5,000 unit Norepinephrine Bitartrate 32 (mg/ Sodium Chloride) 250 mls @ 0 mls/hr IV .Q0M [facility]; Protocol Last Titration: 07/01/22 07:45 Dose: 0.27 mcg/kg/min, 8.2 mls/hr Piperacillin Sod/Tazobactam (Sod 3.375 gm/ Sodium Chloride) 50 mls @ 100 mls/hr IV Q6H [facility] Albumin Human (Kedbumin 25 %) 100 mls @ 133.333 mls/hr IV Q1H [facility] Stop: 07/01/22 08:59 Last Infusion: 07/01/22 08:10 Dose: Infused Melatonin (Melatonin 3 Mg Tablet) 6 mg PO BEDTIME PRN PRN Reason: Insomnia Omeprazole (Omeprazole 20 Mg/10 Ml Susp.Recon) 40 mg PO DAILY@0630 [facility] Ondansetron HCl (Ondansetron Hcl 4 Mg/2 Ml Vial) 4 mg IVPUSH Q8H PRN PRN Reason: Nausea and Vomiting Sodium Chloride (0.9 % Sodium Chloride Flush 3 Ml Syringe) 3 ml IVFLUSH QSHIFT [facility] Last Admin: 07/01/22 07:21 Dose: 3 ml Home Medications Medication Instructions Recorded Confirmed Last Taken Type acetaminophen 325 mg tablet 650 mg PO Q4H PRN Pain 07/01/22 07/01/22 Unknown H istory (Tylenol) atorvastatin 40 mg tablet 1 tab PO DAILY 07/01/22 07/01/22 Unknown History bisacodyl 10 mg rectal suppository 10 mg VT DAILY PRN Constipation 07/01/22 07/01/22 Unknown History duloxetine 60 mg capsule,delayed 1 cap PO DAILY 07/01/22 07/01/22 Unknown History release levothyroxine 112 mcg tablet 1 tab PO DAILY 07/01/22 07/01/22 Unknown History magnesium hydroxide 400 mg/5 mL 30 ml PO DAILY PRN Constipation 07/01/22 07/01/22 Unknown History oral suspension (Milk of Magnesia) magnesium oxide 400 mg (241.3 mg 400 mg PO DAILY 07/01/22 07/01/22 Unknown H istory magnesium) tablet melatonin 3 mg tablet 3 mg PO BEDTIME PRN Insomnia 07/01/22 07/01/22 Unknown History metoprolol tartrate 25 mg tablet 1 tab PO DAILY 07/01/22 07/01/22 Unknown Histor y morphine 15 mg tablet,extended 1 tab PO DAILY 07/01/22 07/01/22 Unknown History release ondansetron HCl 4 mg tablet 4 mg PO Q8H PRN Nausea And Vomiting 07/01/22 07/01/22 Unknown History pantoprazole 20 mg tablet,delayed 1 tab PO DAILY 07/01/22 07/01/22 Unknown History release rivaroxaban 20 mg tablet (Xarelto) 1 tab PO DAILY 07/01/22 07/01/22 Unknown History sennosides 8.6 mg tablet (senna) 8.6 mg PO BEDTIME 07/01/22 07/01/22 Unknown History sodium phosphates 19 gram-7 118 ml VT DAILY PRN Constipation 07/01/22 07/01/22 Unknown History gram/118 mL enema (Fleet Enema) Physical Exam Vital Signs: Vital Signs: Last Vital Signs Temp 99.3 F 07/01/22 08:00 Pulse 104 H 07/01/22 08:00 Resp 19 07/01/22 08:00 BP 108/48 L 07/01/22 08:00 Pulse Ox 97 07/01/22 08:00 O2 Del Method 07/01/22 08:00 O2 Flow Rate 3 07/01/22 08:00 Oxygen Flow Rate 2 07/01/22 01:53 BMI result Body Mass Index 25.2 Const: General: cooperative Orientation/consciousness: oriented to person HEENT: Head: Yes normal to inspection, Yes normocephalic and Yes atraumatic Eyes: Conjunctivae: conjunctivae normal Neck: Neck: Yes normal visual inspection and Yes trachea midline Chest: Chest palpation & inspection: normal inspection of the chest Resp: Effort & Inspection: normal respiratory effort Cardio: Other: patient on IV pressor support Rate: tachycardic GI: Inspection: Yes normal to inspection Palpation (GI): Soft to palpation : General: Yes CVA tenderness (right) Back/Spine/Pelvis: Back: CVA tenderness (right) Skin: General skin exam: no rashes or lesions noted Neuro: General: oriented to person Psych: Appearance: grossly normal Results Labs 07/01/22 07:27 07/01/22 07:27 Labs: Abnormal lab results 07/01/22 07/01/22 07/01/22 Range/Units 02:03 02:05 02:43 WBC 2.6 L (4.8-10.8) X10*3/uL RBC 4.10 L (4.20-5.50) X10*6/uL Hgb 10.9 L (12.0-16.0) g/dl Hct 35.1 L (37.0-47.0) % MCH 26.6 L (27.0-33.0) pg MCHC (31.0-35.0) g/dl RDW 17.5 H (11.0-16.0) % Plt Count (160-400) X10*3/uL Immature Gran % (Auto) 0.8 H (0.0-0.4) % Neut % (Auto) 88.7 H (45-73) % Lymph % (Auto) 8.9 L (20-40) % [place] % (Auto) 0.8 L (2-11) % Lymph # (Auto) 0.2 L (1.2-4.9) X10*3/uL [place] # (Auto) 0.0 L (0.1-1.2) X10*3/uL Abs Immat Gran (auto) (0.00-0.03) X10*3/uL Band Neutrophils % (3-5) % Lymphocytes % (Manual) (20-40) % Abs Neuts (Manual) (2.0-8.3) X10*3/uL Lymphocytes # (Manual) (1.2-4.9) X10*3/uL Potassium 2.3 L* (3.3-5.1) mmol/L Chloride 114 H (96-108) mmol/L Carbon Dioxide 12 L (22-29) mmol/L BUN 24 H (9-16) mg/dL Creatinine (0.5-1.4) mg/dL Lactic Acid 3.2 H* (0.5-2.0) mmol/L Lactic Acid F/U @ 2Hr (0.5-2.0) mmol/L Lactic Acid F/U @ 4Hr (0.5-2.0) mmol/L Calcium 5.7 L* (8.4-10.2) mg/dL Alkaline Phosphatase 180 H (39-117) U/L Total Protein 4.3 L (6.5-8.0) g/dL Albumin 1.9 L (3.5-5.0) g/dL Urine Protein (Neg-Trace) mg/dL Urine Blood (Negative) Ur Leukocyte Esterase (Negative) Urine RBC (0-2) /HPF Urine WBC (0-5) /HPF 07/01/22 07/01/22 07/01/22 Range/Units 02:48 03:16 04:36 WBC (4.8-10.8) X10*3/uL RBC 3.62 L (4.20-5.50) X10*6/uL Hgb 9.7 L (12.0-16.0) g/dl Hct 32.0 L (37.0-47.0) % MCH 26.8 L (27.0-33.0) pg MCHC 30.3 L (31.0-35.0) g/dl RDW 17.3 H (11.0-16.0) % Plt Count 147 L (160-400) X10*3/uL Immature Gran % (Auto) 1.6 H (0.0-0.4) % Neut % (Auto) 92.7 H (45-73) % Lymph % (Auto) 4.2 L (20-40) % [place] % (Auto) 1.2 L (2-11) % Lymph # (Auto) 0.3 L (1.2-4.9) X10*3/uL [place] # (Auto) (0.1-1.2) X10*3/uL Abs Immat Gran (auto) 0.11 H (0.00-0.03) X10*3/uL Band Neutrophils % (3-5) % Lymphocytes % (Manual) (20-40) % Abs Neuts (Manual) (2.0-8.3) X10*3/uL Lymphocytes # (Manual) (1.2-4.9) X10*3/uL Potassium (3.3-5.1) mmol/L Chloride (96-108) mmol/L Carbon Dioxide (22-29) mmol/L BUN (9-16) mg/dL Creatinine (0.5-1.4) mg/dL Lactic Acid (0.5-2.0) mmol/L Lactic Acid F/U @ 2Hr 3.8 H* (0.5-2.0) mmol/L Lactic Acid F/U @ 4Hr (0.5-2.0) mmol/L Calcium (8.4-10.2) mg/dL Alkaline Phosphatase (39-117) U/L Total Protein (6.5-8.0) g/dL Albumin (3.5-5.0) g/dL Urine Protein 300 (3+) H (Neg-Trace) mg/dL Urine Blood Moderate (2+) H (Negative) Ur Leukocyte Esterase Large (3+) H (Negative) Urine RBC 11-20 H (0-2) /HPF Urine WBC >50 H (0-5) /HPF 07/01/22 07/01/22 07/01/22 Range/Units 04:36 07:27 07:27 WBC 21.4 H (4.8-10.8) X10*3/uL RBC 3.19 L (4.20-5.50) X10*6/uL Hgb 8.4 L (12.0-16.0) g/dl Hct 27.9 L (37.0-47.0) % MCH 26.3 L (27.0-33.0) pg MCHC 30.1 L (31.0-35.0) g/dl RDW 17.5 H (11.0-16.0) % Plt Count (160-400) X10*3/uL Immature Gran % (Auto) (0.0-0.4) % Neut % (Auto) (45-73) % Lymph % (Auto) (20-40) % [place] % (Auto) (2-11) % Lymph # (Auto) (1.2-4.9) X10*3/uL [place] # (Auto) (0.1-1.2) X10*3/uL Abs Immat Gran (auto) (0.00-0.03) X10*3/uL Band Neutrophils % 24 H (3-5) % Lymphocytes % (Manual) 1 L (20-40) % Abs Neuts (Manual) 20.3 H (2.0-8.3) X10*3/uL Lymphocytes # (Manual) 0.2 L (1.2-4.9) X10*3/uL Potassium 3.0 L D 3.2 L (3.3-5.1) mmol/L Chloride 109 H 110 H (96-108) mmol/L Carbon Dioxide 15 L 15 L (22-29) mmol/L BUN 28 H 26 H (9-16) mg/dL Creatinine 1.82 H 1.83 H (0.5-1.4) mg/dL Lactic Acid (0.5-2.0) mmol/L Lactic Acid F/U @ 2Hr (0.5-2.0) mmol/L Lactic Acid F/U @ 4Hr (0.5-2.0) mmol/L Calcium 6.6 L D 6.9 L (8.4-10.2) mg/dL Alkaline Phosphatase (39-117) U/L Total Protein (6.5-8.0) g/dL Albumin (3.5-5.0) g/dL Urine Protein (Neg-Trace) mg/dL Urine Blood (Negative) Ur Leukocyte Esterase (Negative) Urine RBC (0-2) /HPF Urine WBC (0-5) /HPF 07/01/22 Range/Units 07:27 WBC (4.8-10.8) X10*3/uL RBC (4.20-5.50) X10*6/uL Hgb (12.0-16.0) g/dl Hct (37.0-47.0) % MCH (27.0-33.0) pg MCHC (31.0-35.0) g/dl RDW (11.0-16.0) % Plt Count (160-400) X10*3/uL Immature Gran % (Auto) (0.0-0.4) % Neut % (Auto) (45-73) % Lymph % (Auto) (20-40) % [place] % (Auto) (2-11) % Lymph # (Auto) (1.2-4.9) X10*3/uL [place] # (Auto) (0.1-1.2) X10*3/uL Abs Immat Gran (auto) (0.00-0.03) X10*3/uL Band Neutrophils % (3-5) % Lymphocytes % (Manual) (20-40) % Abs Neuts (Manual) (2.0-8.3) X10*3/uL Lymphocytes # (Manual) (1.2-4.9) X10*3/uL Potassium (3.3-5.1) mmol/L Chloride (96-108) mmol/L Carbon Dioxide (22-29) mmol/L BUN (9-16) mg/dL Creatinine (0.5-1.4) mg/dL Lactic Acid (0.5-2.0) mmol/L Lactic Acid F/U @ 2Hr (0.5-2.0) mmol/L Lactic Acid F/U @ 4Hr 3.1 H* (0.5-2.0) mmol/L Calcium (8.4-10.2) mg/dL Alkaline Phosphatase (39-117) U/L Total Protein (6.5-8.0) g/dL Albumin (3.5-5.0) g/dL Urine Protein (Neg-Trace) mg/dL Urine Blood (Negative) Ur Leukocyte Esterase (Negative) Urine RBC (0-2) /HPF Urine WBC (0-5) /HPF Short CBC 07/01/22 07/01/22 07/01/22 Range/Units 02:03 03:16 07:27 WBC 2.6 L 6.9 21.4 H (4.8-10.8) X10*3/uL Hgb 10.9 L 9.7 L 8.4 L (12.0-16.0) g/dl Hct 35.1 L 32.0 L 27.9 L (37.0-47.0) % Plt Count 172 147 L 177 (160-400) X10*3/uL BMP 07/01/22 07/01/22 07/01/22 02:43 04:36 07:27 Sodium 138 137 138 Potassium 2.3 L* 3.0 L D 3.2 L Chloride 114 H 109 H 110 H Carbon Dioxide 12 L 15 L 15 L BUN 24 H 28 H 26 H Creatinine 1.33 1.82 H 1.83 H Calcium 5.7 L* 6.6 L D 6.9 L Liver Function 07/01/22 Range/Units 02:43 Total Bilirubin 1.0 (0.0-1.0) mg/dL AST 17 (5-31) U/L ALT 10 (0-31) U/L Alkaline Phosphatase 180 H (39-117) U/L Albumin 1.9 L (3.5-5.0) g/dL Urine 07/01/22 Range/Units 02:48 Urine Color Dark Yellow Urine Appearance Turbid Urine pH 5.5 (5.0-9.0) Ur Specific [place] 1.015 (1.005-1.025) Urine Protein 300 (3+) H (Neg-Trace) mg/dL Urine Glucose (UA) Negative (Negative) mg/dL All other labs normal. Imaging Abdomen CT scan report/results: report reviewed CT scan - pelvis: image reviewed Additional studies: Date of Service: 07/01/22 EXAMINATION: CT ABDOMEN AND PELVIS WITHOUT CONTRAST? CLINICAL INFORMATION: UTI. Diffuse abdominal pain. Sepsis.? COMPARISON: 06/05/2017? FINDINGS: LUNG BASES: Small pleural effusions with bibasilar atelectasis. Calcified bilateral breast implants.? LIVER, GALLBLADDER, AND BILIARY TREE: The liver is normal in size, shape, and attenuation. No biliary ductal dilatation. Cyst in the left lobe of the liver noted.. Abnormal appearance of the gallbladder appears chronic with wall thickening along the margin. No stones.? PANCREAS: Unremarkable.? SPLEEN: Unremarkable.? ADRENAL GLANDS: Unremarkable.? KIDNEYS AND URETERS: The kidneys are normal in size, shape, and attenuation. Mild right hydronephrosis with a 1.4 cm calculus at the right ureteropelvic junction. This is 16 cm from the posterior axillary line and measures 815 Hounsfield units. There are at least 5 additional right renal calculi, measuring up to 1.4 cm at the upper pole, 10 cm from the posterior axillary line. There are 2 left calculi noted measuring up to 0.2 cm, 8 cm from the posterior axillary line. Perinephric stranding bilaterally. BLADDER: Decompressed with Levy catheter in place.? GASTROINTESTINAL TRACT: The stomach is decompressed. Normal caliber small bowel. No obstruction. No colonic wall thickening or inflammation. Normal appendix. Sigmoid diverticulosis without diverticulitis. No free air or free fluid.? ABDOMINAL WALL: No significant hernia is appreciated.? LYMPH NODES: Normal. VASCULAR: Normal caliber aorta with mild atherosclerotic calcification. PELVIC VISCERA: The uterus and adnexa are unremarkable.? OSSEOUS STRUCTURES: No acute or suspicious osseous abnormality. Degenerative changes throughout the spine. Mild degenerative changes of the hips.? IMPRESSION: 1.? Mild right hydronephrosis with a 1.4 cm calculus at the right ureteropelvic junction. Additional bilateral renal calculi. 2.? Small pleural effusions with bibasilar atelectasis. ? Assessment and Plan (1) Acute UTI: Status: Acute (2) Septic shock: Status: Acute (3) Kidney stone on right side: Status: Acute Plan Emergent need to place stent due to septic shock from obstructive uropathy and UTI Right ureteral stent Time Spent With Patient Time: Total time managing care of this patient today ____ minutes. Procedures Date of Service Date of Service: 07/01/22
--- NOTE | 2022-07-01 08:37 | PHA.MEDREC ---
Pharmacy Consult ? Medication Reconciliation Pharmacy has completed the medication reconciliation. Patient had a list from [facility].
[2022-07-01] MEDS: Acetaminophen 325 MG TABLET 650 MG PO (08:40)
[2022-07-01] MEDS: ceFAZolin Sodium/Dextrose,Iso 2 GM/50 ML PIGGYBACK IV (09:15)
--- NOTE | 2022-07-01 09:58 | P.OP_ITS ---
Operative Note Operative Note Date of Service: 07/01/22 Narrative: PreOperative Diagnosis:?? Right UPJ stone, Septic shock UTI Post Operative Diagnosis:?? ?Right UPJ stone, Septic shock UTI Procedure: Cystoscopy, Right ureteral stent placement 6 fr by 26 cm Surgeon:?Dr Krista Man Anesthesia:? MAC Indications for procedure: 77 years old [facility] for temperature of 103.4 degrees.?PMH h/o stones, ER labs elevated lactic acid. CT imaging 1.4 cm right UPJ stone with mild hydro.? The patient has been stabilized in the ICU but remains on IV pressor support. Procedure: After informed consent was verified the patient was brought to the operating placed on the OR table in supine position.? IV sedation was administered per protocol.? The patient was placed in lithotomy position, prepped and draped in the usual sterile fashion.? Safety pause time-out and side of surgery confirmed.? Antibiotics confirmed. A 22 [place] cystoscope was inserted transurethrally, the right ureteral orifice was identified. The? right ureteric orifice was cannulated? and A hydrophilic guidewire was placed up to the level of the renal pelvis past the upj stone under fluoroscopy. The ureteral catheter passed into the renal pelvis and urine was obtained for c/s. The guide wire was replaced and the ureteral catheter was removed. A? 6 [place] by 24 length stent was placed into the ureter and renal pelvis under a combination of fluoroscopy and direct visualization. The bladder was emptied.? The rigid cystoscope was removed. ? 16 fr temperature catheter placed. The patient tolerated the procedure well and was brought to the recovery room in stable condition. Complications: None Drains: Ureteral stent as dictated above
--- NOTE | 2022-07-01 10:43 | MHC.CM.PN ---
Pt presently being prepped for OR - information obtained from EMR and phone conversation w/dtr, Marty. Per Marty, pt is a LTC resident of [facility] (since 2014) and will return when medically stable. She is [place]MAHA - no device and primarily w/c bound. She is vaxed/boosted. She will need BLS transport. Call placed to [facility] x 2 to obtain copy of HCP and [facility]OL[facility]: no answer. Will attempt again. CM to follow for d/c planning
--- NOTE | 2022-07-01 11:29 | P.CONAN_ITS ---
[facility] Active Problems Active Problems: All Active Problems (Updated 07/01/22 @ 05:21 by Gunner Schmidt MD) Acute UTI (Acute) Septic shock (Acute) Kidney stone on right side (Acute) Family History Family history of problems with anesthesia: No Surgical History History of Problems with Anesthesia: No Social History Social History Household Members: Other Household Members Other:: NA Housing: Intermediate Patient Tobacco Use Status: Former Tobacco user Tobacco use type: Cigarette Smoked in Last 30 Days: No e-Cigarette/Vaping Use: Never Used Patient Interested in Nicotine Replacement: No (NA) Patient Given Instructions on How to Stop Smoking: No (NA) Second Hand Smoke Exposure: No Use of substances other than those prescribed or required for medical reasons: No Substance Use Type: Caffiene Substance Use Type Other:: 1-2 cup of tea Substance Use Frequency: Daily Currently Displaying Signs/Symptoms of Drug Intoxication Withdrawal: No Have you been hit, kicked, punched, or otherwise hurt by someone within the past year? If so, by whom?: No Do you feel safe in your current relationship?: No Current Relationship Is there a partner from a previous relationship who is making you feel unsafe now?: No Are you made to feel afraid or neglected: No Spiritual Healthcare Practices: Praying Advance Directives: No Advance Directives Information Provided: Yes Do you have thoughts of harming others: None Recently lost weight without trying: No How much weight loss: Not applicable Eating poorly because of decreased appetite: No Nutrition screen score: 0 Nutrition Risks: No Nutritional Risk Patient : No : No Poor oral hygiene: No service: No Current occupational status: retired [employer] Allergies Allergy/AdvReac Type Severity Reaction Status Date / Time No Known Allergies Allergy Verified 07/01/22 09:35 [No Known Allergies*] Active Medications: Current Medications Acetaminophen (Acetaminophen 325 Mg Tablet) 650 mg PO Q6H PRN PRN Reason: Pain, Mild (Pain Scale 1-3) Last Admin: 07/01/22 08:40 Dose: 650 mg Heparin Sodium (Porcine) (Heparin Sodium,Porcine 5,000 Unit/Ml Vial) 5,000 unit SUBCUT Q12H MICHAEL Last Admin: 07/01/22 07:21 Dose: 5,000 unit Norepinephrine Bitartrate 32 (mg/ Sodium Chloride) 250 mls @ 0 mls/hr IV .Q0M [facility]; Protocol Last Titration: 07/01/22 10:35 Dose: 0.25 mcg/kg/min, 7.59 mls/hr Piperacillin Sod/Tazobactam (Sod 3.375 gm/ Sodium Chloride) 50 mls @ 100 mls/hr IV Q6H [facility] Melatonin (Melatonin 3 Mg Tablet) 6 mg PO BEDTIME PRN PRN Reason: Insomnia Omeprazole (Omeprazole 20 Mg/10 Ml Susp.Recon) 40 mg PO DAILY@0630 [facility] Ondansetron HCl (Ondansetron Hcl 4 Mg/2 Ml Vial) 4 mg IVPUSH Q8H PRN PRN Reason: Nausea and Vomiting Sodium Chloride (0.9 % Sodium Chloride Flush 3 Ml Syringe) 3 ml IVFLUSH QSHIFT [facility] Last Admin: 07/01/22 07:21 Dose: 3 ml Home Medications Medication Instructions Recorded Confirmed Last Taken Type acetaminophen 325 mg tablet 650 mg PO Q4H PRN Pain 07/01/22 07/01/22 Unknown History (Tylenol) atorvastatin 40 mg tablet 1 tab PO BEDTIME 07/01/22 07/01/22 Unknown History bisacodyl 10 mg rectal suppository [address] DAILY PRN Constipation 07/01/22 07/01/22 Unknown History duloxetine 60 mg capsule,delayed 1 cap PO DAILY 07/01/22 07/01/22 Unknown History release levothyroxine 112 mcg tablet 1 tab PO DAILY@0600 07/01/22 07/01/22 Unknown History magnesium hydroxide 400 mg/5 mL 30 ml PO DAILY PRN Constipation 07/01/22 07/01/22 Unknown History oral suspension (Milk of Magnesia) magnesium oxide 400 mg (241.3 mg 400 mg PO DAILY 07/01/22 07/01/22 Unknown History magnesium) tablet melatonin 3 mg tablet 3 mg PO BEDTIME 07/01/22 07/01/22 Unknown History metoprolol tartrate 25 mg tablet 0.5 tab PO BID 07/01/22 07/01/22 Unknown History morphine 15 mg tablet,extended 1 tab PO DAILY 07/01/22 07/01/22 Unknown History release ondansetron HCl 4 mg tablet 4 mg PO Q6H PRN Nausea And Vomiting 07/01/22 07/01/22 Unknown History pantoprazole 20 mg tablet,delayed 1 tab PO DAILY@0630 07/01/22 07/01/22 Unknown History release rivaroxaban 20 mg tablet (Xarelto) 1 tab PO DAILY@1700 07/01/22 07/01/22 Unknown History sennosides 8.6 mg tablet (senna) 8.6 mg PO BEDTIME 07/01/22 07/01/22 Unknown History sodium phosphates 19 gram-[address] DAILY PRN Constipation 07/01/22 07/01/22 Unknown History gram/118 mL enema (Fleet Enema) Exam Exam Date and Time: July 01, 2022 1129 Height,Weight and Vital Signs: Height 5 ft 6 in Weight 71.1 kg Last Vital Signs Temp 99.0 F 07/01/22 11:00 Pulse 111 H 07/01/22 11:00 Resp 22 H 07/01/22 11:00 BP 128/50 L 07/01/22 11:00 Pulse Ox 96 07/01/22 11:00 O2 Del Method 07/01/22 11:00 O2 Flow Rate 3 07/01/22 11:00 Oxygen Flow Rate 3 07/01/22 04:59 Pertinent Lab Results Pertinent Lab Results: Laboratory Tests 07/01/22 07/01/22 07/01/22 02:03 02:03 02:05 WBC 2.6 L RBC 4.10 L Hgb 10.9 L Hct 35.1 L MCV 85.6 MCH 26.6 L MCHC 31.1 RDW 17.5 H Plt Count 172 MPV 10.6 Immature Gran % (Auto) 0.8 H Neut % (Auto) 88.7 H Lymph % (Auto) 8.[address] % (Auto) 0.8 L Eos % (Auto) 0.0 Baso % (Auto) 0.8 Lymph # (Auto) 0.[address] [place] # (Auto) 0.0 L Eos # (Auto) 0.0 Baso # (Auto) 0.0 Abs Immat Gran (auto) 0.02 Absolute Neuts (auto) 2.3 Absolute Nucleated RBC 0.000 Nucleated RBC % (auto) 0.0 Neutrophils % (Manual) Band Neutrophils % Lymphocytes % (Manual) Monocytes % (Manual) Abs Neuts (Manual) Lymphocytes # (Manual) Monocytes # (Manual) Toxic Vacuolation Dohle Bodies Platelet Estimate Plt Morphology Comment RBC Morphology Polychromasia Acanthocytes (Spur) Smear Tech's Comments VERIFIED Sodium Potassium Chloride Carbon Dioxide Anion Gap BUN Creatinine Estim Creat Clear Calc Estimated GFR Random Glucose Lactic Acid 3.2 H* Lactic Acid F/U @ 2Hr Lactic Acid F/U @ 4Hr Calcium Total Bilirubin AST ALT Alkaline Phosphatase Troponin I High Sens B-Natriuretic Peptide Total Protein Albumin Urine Color Urine Appearance Urine pH Ur Specific [place] Urine Protein Urine Glucose (UA) Urine Ketones Urine Blood Urine Nitrite Ur Leukocyte Esterase Urine RBC Urine WBC Ur Squamous Epith Cells Urine Bacteria Hyaline Casts Influenza Type A (PCR) NEGATIVE Influenza Type B (PCR) NEGATIVE RSV RNA Qual (PCR) NEGATIVE SARS-CoV-2 RNA (RT-PCR) NEGATIVE 07/01/22 07/01/22 07/01/22 02:43 02:43 02:48 WBC RBC Hgb Hct MCV MCH MCHC RDW Plt Count MPV Immature Gran % (Auto) Neut % (Auto) Lymph % (Auto) [facility] % (Auto) Eos % (Auto) Baso % (Auto) Lymph # (Auto) [facility] # (Auto) Eos # (Auto) Baso # (Auto) Abs Immat Gran (auto) Absolute Neuts (auto) Absolute Nucleated RBC Nucleated RBC % (auto) Neutrophils % (Manual) Band Neutrophils % Lymphocytes % (Manual) Monocytes % (Manual) Abs Neuts (Manual) Lymphocytes # (Manual) Monocytes # (Manual) Toxic Vacuolation Dohle Bodies Platelet Estimate Plt Morphology Comment RBC Morphology Polychromasia Acanthocytes (Spur) Smear Tech's Comments Sodium 138 Potassium 2.3 L* Chloride 114 H Carbon Dioxide 12 L Anion Gap 14 BUN 24 H Creatinine 1.33 Estim Creat Clear Calc 32.0 Estimated GFR 39 Random Glucose 86 Lactic Acid Lactic Acid F/U @ 2Hr Lactic Acid F/U @ 4Hr Calcium 5.7 L* Total Bilirubin 1.0 AST 17 ALT 10 Alkaline Phosphatase 180 H Troponin I High Sens 8.8 B-Natriuretic Peptide Total Protein 4.3 L Albumin 1.9 L Urine Color Dark Yellow Urine Appearance Turbid Urine pH 5.5 Ur Specific [place] 1.015 Urine Protein 300 (3+) H Urine Glucose (UA) Negative Urine Ketones Trace Urine Blood Moderate (2+) H Urine Nitrite Negative Ur Leukocyte Esterase Large (3+) H Urine RBC 11-20 H Urine WBC >50 H Ur Squamous Epith Cells 6-10 Urine Bacteria 3+ Hyaline Casts 0-2 Influenza Type A (PCR) Influenza Type B (PCR) RSV RNA Qual (PCR) SARS-CoV-2 RNA (RT-PCR) 07/01/22 07/01/22 07/01/22 03:16 04:36 04:36 WBC 6.9 RBC 3.62 L Hgb 9.7 L Hct 32.0 L MCV 88.4 MCH 26.8 L MCHC 30.3 L RDW 17.3 H Plt Count 147 L MPV 10.4 Immature Gran % (Auto) 1.6 H Neut % (Auto) 92.7 H Lymph % (Auto) 4.[address] [place] % (Auto) 1.2 L Eos % (Auto) 0.0 Baso % (Auto) 0.3 Lymph # (Auto) 0.[address] [place] # (Auto) 0.1 Eos # (Auto) 0.0 Baso # (Auto) 0.0 Abs Immat Gran (auto) 0.11 H Absolute Neuts (auto) 6.4 Absolute Nucleated RBC 0.000 Nucleated RBC % (auto) 0.0 Neutrophils % (Manual) Band Neutrophils % Lymphocytes % (Manual) Monocytes % (Manual) Abs Neuts (Manual) Lymphocytes # (Manual) Monocytes # (Manual) Toxic Vacuolation Dohle Bodies Platelet Estimate Plt Morphology Comment RBC Morphology Polychromasia Acanthocytes (Spur) Smear Tech's Comments Sodium Potassium Chloride Carbon Dioxide Anion Gap BUN Creatinine Estim Creat Clear Calc Estimated GFR Random Glucose Lactic Acid Lactic Acid F/U @ 2Hr 3.8 H* Lactic Acid F/U @ 4Hr Calcium Total Bilirubin AST ALT Alkaline Phosphatase Troponin I High Sens B-Natriuretic Peptide 82 Total Protein Albumin Urine Color Urine Appearance Urine pH Ur Specific [place] Urine Protein Urine Glucose (UA) Urine Ketones Urine Blood Urine Nitrite Ur Leukocyte Esterase Urine RBC Urine WBC Ur Squamous Epith Cells Urine Bacteria Hyaline Casts Influenza Type A (PCR) Influenza Type B (PCR) RSV RNA Qual (PCR) SARS-CoV-2 RNA (RT-PCR) 07/01/22 07/01/22 07/01/22 04:36 07:27 07:27 WBC 21.4 H RBC 3.19 L Hgb 8.4 L Hct 27.9 L MCV 87.5 MCH 26.3 L MCHC 30.1 L RDW 17.5 H Plt Count 177 MPV 10.2 Immature Gran % (Auto) Cancelled Neut % (Auto) Cancelled Lymph % (Auto) Cancelled [facility] % (Auto) Cancelled Eos % (Auto) Cancelled Baso % (Auto) Cancelled Lymph # (Auto) Cancelled [facility] # (Auto) Cancelled Eos # (Auto) Cancelled Baso # (Auto) Cancelled Abs Immat Gran (auto) Cancelled Absolute Neuts (auto) Cancelled Absolute Nucleated RBC 0.000 Nucleated RBC % (auto) 0.0 Neutrophils % (Manual) 71 Band Neutrophils % 24 H Lymphocytes % (Manual) 1 L Monocytes % (Manual) 4 Abs Neuts (Manual) 20.3 H Lymphocytes # (Manual) 0.2 L Monocytes # (Manual) 0.9 Toxic Vacuolation PRESENT Dohle Bodies PRESENT Platelet Estimate NORMAL Plt Morphology Comment NORMAL RBC Morphology NOTED Polychromasia 1+ (0-2) Acanthocytes (Spur) 3+ (>5) Smear Tech's Comments Sodium 137 138 Potassium 3.0 L D 3.2 L Chloride 109 H 110 H Carbon Dioxide 15 L 15 L Anion Gap 16 16 BUN 28 H 26 H Creatinine 1.82 H 1.83 H Estim Creat Clear Calc 23.4 23.3 Estimated GFR 27 27 Random Glucose 97 107 Lactic Acid Lactic Acid F/U @ 2Hr Lactic Acid F/U @ 4Hr Calcium 6.6 L D 6.9 L Total Bilirubin AST ALT Alkaline Phosphatase Troponin I High Sens B-Natriuretic Peptide Total Protein Albumin Urine Color Urine Appearance Urine pH Ur Specific [place] Urine Protein Urine Glucose (UA) Urine Ketones Urine Blood Urine Nitrite Ur Leukocyte Esterase Urine RBC Urine WBC Ur Squamous Epith Cells Urine Bacteria Hyaline Casts Influenza Type A (PCR) Influenza Type B (PCR) RSV RNA Qual (PCR) SARS-CoV-2 RNA (RT-PCR) 07/01/22 07:27 WBC RBC Hgb Hct MCV MCH MCHC RDW Plt Count MPV Immature Gran % (Auto) Neut % (Auto) Lymph % (Auto) [facility] % (Auto) Eos % (Auto) Baso % (Auto) Lymph # (Auto) [facility] [place] # (Auto) Eos # (Auto) Baso # (Auto) Abs Immat Gran (auto) Absolute Neuts (auto) Absolute Nucleated RBC Nucleated RBC % (auto) Neutrophils % (Manual) Band Neutrophils % Lymphocytes % (Manual) Monocytes % (Manual) Abs Neuts (Manual) Lymphocytes # (Manual) Monocytes # (Manual) Toxic Vacuolation Dohle Bodies Platelet Estimate Plt Morphology Comment RBC Morphology Polychromasia Acanthocytes (Spur) Smear Tech's Comments Sodium Potassium Chloride Carbon Dioxide Anion Gap BUN Creatinine Estim Creat Clear Calc Estimated GFR Random Glucose Lactic Acid Lactic Acid F/U @ 2Hr Lactic Acid F/U @ 4Hr 3.1 H* Calcium Total Bilirubin AST ALT Alkaline Phosphatase Troponin I High Sens B-Natriuretic Peptide Total Protein Albumin Urine Color Urine Appearance Urine pH Ur Specific [place] Urine Protein Urine Glucose (UA) Urine Ketones Urine Blood Urine Nitrite Ur Leukocyte Esterase Urine RBC Urine WBC Ur Squamous Epith Cells Urine Bacteria Hyaline Casts Influenza Type A (PCR) Influenza Type B (PCR) RSV RNA Qual (PCR) SARS-CoV-2 RNA (RT-PCR) Airway Mallampati Class: II TM Dist: >3cm Neck ROM: Full Denture: Upper Heart: rr Lungs: cta Assessment and Plan Assessment Anesthesia Assessment: Anesthesia Plan Discussed and Chart Reviewed Final Anesthetic Review Family History of Problems with Anesthesia: No History of Problems with Anesthesia: No NPO: Yes ASA Class: IV and Emergency Final Preanesthetic Review: No Changes in Pt Med Stat, Meds/Allgs Chart Reviewed, Consent Obtained/Reviewed and Anes Risks/Benef Reviewed Patient Risk: High Procedure Risk: Low Anesthetic Plan Anesthetic Plan: GA (Face mask GA) and Agree w/ Assess. and Plan Disposition: Standard PACU and Inp. Admit - ICU
--- NOTE | 2022-07-01 11:39 | P.CONAN_ITS ---
HPI - Anesthesia Eval Consult details Narrative: 77yo F for emergency cysto/ stent placement for hydronephrosis PMFSH Active Problems Active Problems: All Active Problems (Updated 07/01/22 @ 05:21 by Gunner Schmidt MD) Acute UTI (Acute) Septic shock (Acute) Kidney stone on right side (Acute) Family History Family history of problems with anesthesia: No Surgical History History of Problems with Anesthesia: No Social History Social History Household Members: Other Household Members Other:: NA Housing: Long-Term Patient Tobacco Use Status: Former Tobacco user Tobacco use type: Cigarette Smoked in Last 30 Days: No e-Cigarette/Vaping Use: Never Used Patient Interested in Nicotine Replacement: No (NA) Patient Given Instructions on How to Stop Smoking: No (NA) Second Hand Smoke Exposure: No Use of substances other than those prescribed or required for medical reasons: No Substance Use Type: Caffiene Substance Use Type Other:: 1-2 cup of tea Substance Use Frequency: Daily Currently Displaying Signs/Symptoms of Drug Intoxication Withdrawal: No Have you been hit, kicked, punched, or otherwise hurt by someone within the past year? If so, by whom?: No Do you feel safe in your current relationship?: No Current Relationship Is there a partner from a previous relationship who is making you feel unsafe now?: No Are you made to feel afraid or neglected: No Spiritual Healthcare Practices: Praying Advance Directives: No Advance Directives Information Provided: Yes Do you have thoughts of harming others: None Recently lost weight without trying: No How much weight loss: Not applicable Eating poorly because of decreased appetite: No Nutrition screen score: 0 Nutrition Risks: No Nutritional Risk Patient : No : No Poor oral hygiene: No service: No Current occupational status: retired [employer] Allergies Allergy/AdvReac Type Severity Reaction Status Date / Time No Known Allergies Allergy Verified 07/01/22 09:35 [No Known Allergies*] Active Medications: Current Medications Acetaminophen (Acetaminophen 325 Mg Tablet) 650 mg PO Q6H PRN PRN Reason: Pain, Mild (Pain Scale 1-3) Last Admin: 07/01/22 08:40 Dose: 650 mg Heparin Sodium (Porcine) (Heparin Sodium,Porcine 5,000 Unit/Ml Vial) 5,000 unit SUBCUT Q12H MICHAEL Last Admin: 07/01/22 07:21 Dose: 5,000 unit Norepinephrine Bitartrate 32 (mg/ Sodium Chloride) 250 mls @ 0 mls/hr IV .Q0M [facility]; Protocol Last Titration: 07/01/22 10:35 Dose: 0.25 mcg/kg/min, 7.59 mls/hr Piperacillin Sod/Tazobactam (Sod 3.375 gm/ Sodium Chloride) 50 mls @ 100 mls/hr IV Q6H [facility] Melatonin (Melatonin 3 Mg Tablet) 6 mg PO BEDTIME PRN PRN Reason: Insomnia Omeprazole (Omeprazole 20 Mg/10 Ml Susp.Recon) 40 mg PO DAILY@0630 [facility] Ondansetron HCl (Ondansetron Hcl 4 Mg/2 Ml Vial) 4 mg IVPUSH Q8H PRN PRN Reason: Nausea and Vomiting Sodium Chloride (0.9 % Sodium Chloride Flush 3 Ml Syringe) 3 ml IVFLUSH QSHIFT [facility] Last Admin: 07/01/22 07:21 Dose: 3 ml Home Medications Medication Instructions Recorded Confirmed Last Taken Type acetaminophen 325 mg tablet 650 mg PO Q4H PRN Pain 07/01/22 07/01/22 Unknown History (Tylenol) atorvastatin 40 mg tablet 1 tab PO BEDTIME 07/01/22 07/01/22 Unknown History bisacodyl 10 mg rectal suppository 10 mg IA DAILY PRN Constipation 07/01/22 07/01/22 Unknown History duloxetine 60 mg capsule,delayed 1 cap PO DAILY 07/01/22 07/01/22 Unknown History release levothyroxine 112 mcg tablet 1 tab PO DAILY@0600 07/01/22 07/01/22 Unknown History magnesium hydroxide 400 mg/5 mL 30 ml PO DAILY PRN Constipation 07/01/22 07/01/22 Unknown History oral suspension (Milk of Magnesia) magnesium oxide 400 mg (241.3 mg 400 mg PO DAILY 07/01/22 07/01/22 Unknown History magnesium) tablet melatonin 3 mg tablet 3 mg PO BEDTIME 07/01/22 07/01/22 Unknown History metoprolol tartrate 25 mg tablet 0.5 tab PO BID 07/01/22 07/01/22 Unknown History morphine 15 mg tablet,extended 1 tab PO DAILY 07/01/22 07/01/22 Unknown History release ondansetron HCl 4 mg tablet 4 mg PO Q6H PRN Nausea And Vomiting 07/01/22 07/01/22 Unknown History pantoprazole 20 mg tablet,delayed 1 tab PO DAILY@0630 07/01/22 07/01/22 Unknown History release rivaroxaban 20 mg tablet (Xarelto) 1 tab PO DAILY@1700 07/01/22 07/01/22 Unknown History sennosides 8.6 mg tablet (senna) 8.6 mg PO BEDTIME 07/01/22 07/01/22 Unknown History sodium phosphates 19 gram-7 118 ml IA DAILY PRN Constipation 07/01/22 07/01/22 Unknown History gram/118 mL enema (Fleet Enema) Exam Exam Date and Time: July 01, 2022 113 Height,Weight and Vital Signs: Height 5 ft 6 in Weight 71.1 kg Last Vital Signs Temp 99.0 F 07/01/22 11:00 Pulse 111 H 07/01/22 11:00 Resp 22 H 07/01/22 11:00 BP 128/50 L 07/01/22 11:00 Pulse Ox 96 07/01/22 11:00 O2 Del Method 07/01/22 11:00 O2 Flow Rate 3 07/01/22 11:00 Oxygen Flow Rate 3 07/01/22 04:59 Pertinent Lab Results Pertinent Lab Results: Laboratory Tests 07/01/22 07/01/22 07/01/22 02:03 02:03 02:05 WBC 2.6 L RBC 4.10 L Hgb 10.9 L Hct 35.1 L MCV 85.6 MCH 26.6 L MCHC 31.1 RDW 17.5 H Plt Count 172 MPV 10.6 Immature Gran % (Auto) 0.8 H Neut % (Auto) 88.7 H Lymph % (Auto) 8.9 L [place] % (Auto) 0.8 L Eos % (Auto) 0.0 Baso % (Auto) 0.8 Lymph # (Auto) 0.2 L [place] # (Auto) 0.0 L Eos # (Auto) 0.0 Baso # (Auto) 0.0 Abs Immat Gran (auto) 0.02 Absolute Neuts (auto) 2.3 Absolute Nucleated RBC 0.000 Nucleated RBC % (auto) 0.0 Neutrophils % (Manual) Band Neutrophils % Lymphocytes % (Manual) Monocytes % (Manual) Abs Neuts (Manual) Lymphocytes # (Manual) Monocytes # (Manual) Toxic Vacuolation Dohle Bodies Platelet Estimate Plt Morphology Comment RBC Morphology Polychromasia Acanthocytes (Spur) Smear Tech's Comments VERIFIED Sodium Potassium Chloride Carbon Dioxide Anion Gap BUN Creatinine Estim Creat Clear Calc Estimated GFR Random Glucose Lactic Acid 3.2 H* Lactic Acid F/U @ 2Hr Lactic Acid F/U @ 4Hr Calcium Total Bilirubin AST ALT Alkaline Phosphatase Troponin I High Sens B-Natriuretic Peptide Total Protein Albumin Urine Color Urine Appearance Urine pH Ur Specific [place] Urine Protein Urine Glucose (UA) Urine Ketones Urine Blood Urine Nitrite Ur Leukocyte Esterase Urine RBC Urine WBC Ur Squamous Epith Cells Urine Bacteria Hyaline Casts Influenza Type A (PCR) NEGATIVE Influenza Type B (PCR) NEGATIVE RSV RNA Qual (PCR) NEGATIVE SARS-CoV-2 RNA (RT-PCR) NEGATIVE 07/01/22 07/01/22 07/01/22 02:43 02:43 02:48 WBC RBC Hgb Hct MCV MCH MCHC RDW Plt Count MPV Immature Gran % (Auto) Neut % (Auto) Lymph % (Auto) [place] % (Auto) Eos % (Auto) Baso % (Auto) Lymph # (Auto) [place] # (Auto) Eos # (Auto) Baso # (Auto) Abs Immat Gran (auto) Absolute Neuts (auto) Absolute Nucleated RBC Nucleated RBC % (auto) Neutrophils % (Manual) Band Neutrophils % Lymphocytes % (Manual) Monocytes % (Manual) Abs Neuts (Manual) Lymphocytes # (Manual) Monocytes # (Manual) Toxic Vacuolation Dohle Bodies Platelet Estimate Plt Morphology Comment RBC Morphology Polychromasia Acanthocytes (Spur) Smear Tech's Comments Sodium 138 Potassium 2.3 L* Chloride 114 H Carbon Dioxide 12 L Anion Gap 14 BUN 24 H Creatinine 1.33 Estim Creat Clear Calc 32.0 Estimated GFR 39 Random Glucose 86 Lactic Acid Lactic Acid F/U @ 2Hr Lactic Acid F/U @ 4Hr Calcium 5.7 L* Total Bilirubin 1.0 AST 17 ALT 10 Alkaline Phosphatase 180 H Troponin I High Sens 8.8 B-Natriuretic Peptide Total Protein 4.3 L Albumin 1.9 L Urine Color Dark Yellow Urine Appearance Turbid Urine pH 5.5 Ur Specific [place] 1.015 Urine Protein 300 (3+) H Urine Glucose (UA) Negative Urine Ketones Trace Urine Blood Moderate (2+) H Urine Nitrite Negative Ur Leukocyte Esterase Large (3+) H Urine RBC 11-20 H Urine WBC >50 H Ur Squamous Epith Cells 6-10 Urine Bacteria 3+ Hyaline Casts 0-2 Influenza Type A (PCR) Influenza Type B (PCR) RSV RNA Qual (PCR) SARS-CoV-2 RNA (RT-PCR) 07/01/22 07/01/22 07/01/22 03:16 04:36 04:36 WBC 6.9 RBC 3.62 L Hgb 9.7 L Hct 32.0 L MCV 88.4 MCH 26.8 L MCHC 30.3 L RDW 17.3 H Plt Count 147 L MPV 10.4 Immature Gran % (Auto) 1.6 H Neut % (Auto) 92.7 H Lymph % (Auto) 4.2 L [place] % (Auto) 1.2 L Eos % (Auto) 0.0 Baso % (Auto) 0.3 Lymph # (Auto) 0.3 L [place] # (Auto) 0.1 Eos # (Auto) 0.0 Baso # (Auto) 0.0 Abs Immat Gran (auto) 0.11 H Absolute Neuts (auto) 6.4 Absolute Nucleated RBC 0.000 Nucleated RBC % (auto) 0.0 Neutrophils % (Manual) Band Neutrophils % Lymphocytes % (Manual) Monocytes % (Manual) Abs Neuts (Manual) Lymphocytes # (Manual) Monocytes # (Manual) Toxic Vacuolation Dohle Bodies Platelet Estimate Plt Morphology Comment RBC Morphology Polychromasia Acanthocytes (Spur) Smear Tech's Comments Sodium Potassium Chloride Carbon Dioxide Anion Gap BUN Creatinine Estim Creat Clear Calc Estimated GFR Random Glucose Lactic Acid Lactic Acid F/U @ 2Hr 3.8 H* Lactic Acid F/U @ 4Hr Calcium Total Bilirubin AST ALT Alkaline Phosphatase Troponin I High Sens B-Natriuretic Peptide 82 Total Protein Albumin Urine Color Urine Appearance Urine pH Ur Specific [place] Urine Protein Urine Glucose (UA) Urine Ketones Urine Blood Urine Nitrite Ur Leukocyte Esterase Urine RBC Urine WBC Ur Squamous Epith Cells Urine Bacteria Hyaline Casts Influenza Type A (PCR) Influenza Type B (PCR) RSV RNA Qual (PCR) SARS-CoV-2 RNA (RT-PCR) 07/01/22 07/01/22 07/01/22 04:36 07:27 07:27 WBC 21.4 H RBC 3.19 L Hgb 8.4 L Hct 27.9 L MCV 87.5 MCH 26.3 L MCHC 30.1 L RDW 17.5 H Plt Count 177 MPV 10.2 Immature Gran % (Auto) Cancelled Neut % (Auto) Cancelled Lymph % (Auto) Cancelled [place] % (Auto) Cancelled Eos % (Auto) Cancelled Baso % (Auto) Cancelled Lymph # (Auto) Cancelled [place] # (Auto) Cancelled Eos # (Auto) Cancelled Baso # (Auto) Cancelled Abs Immat Gran (auto) Cancelled Absolute Neuts (auto) Cancelled Absolute Nucleated RBC 0.000 Nucleated RBC % (auto) 0.0 Neutrophils % (Manual) 71 Band Neutrophils % 24 H Lymphocytes % (Manual) 1 L Monocytes % (Manual) 4 Abs Neuts (Manual) 20.3 H Lymphocytes # (Manual) 0.2 L Monocytes # (Manual) 0.9 Toxic Vacuolation PRESENT Dohle Bodies PRESENT Platelet Estimate NORMAL Plt Morphology Comment NORMAL RBC Morphology NOTED Polychromasia 1+ (0-2) Acanthocytes (Spur) 3+ (>5) Smear Tech's Comments Sodium 137 138 Potassium 3.0 L D 3.2 L Chloride 109 H 110 H Carbon Dioxide 15 L 15 L Anion Gap 16 16 BUN 28 H 26 H Creatinine 1.82 H 1.83 H Estim Creat Clear Calc 23.4 23.3 Estimated GFR 27 27 Random Glucose 97 107 Lactic Acid Lactic Acid F/U @ 2Hr Lactic Acid F/U @ 4Hr Calcium 6.6 L D 6.9 L Total Bilirubin AST ALT Alkaline Phosphatase Troponin I High Sens B-Natriuretic Peptide Total Protein Albumin Urine Color Urine Appearance Urine pH Ur Specific [place] Urine Protein Urine Glucose (UA) Urine Ketones Urine Blood Urine Nitrite Ur Leukocyte Esterase Urine RBC Urine WBC Ur Squamous Epith Cells Urine Bacteria Hyaline Casts Influenza Type A (PCR) Influenza Type B (PCR) RSV RNA Qual (PCR) SARS-CoV-2 RNA (RT-PCR) 07/01/22 07:27 WBC RBC Hgb Hct MCV MCH MCHC RDW Plt Count MPV Immature Gran % (Auto) Neut % (Auto) Lymph % (Auto) [place] % (Auto) Eos % (Auto) Baso % (Auto) Lymph # (Auto) [place] # (Auto) Eos # (Auto) Baso # (Auto) Abs Immat Gran (auto) Absolute Neuts (auto) Absolute Nucleated RBC Nucleated RBC % (auto) Neutrophils % (Manual) Band Neutrophils % Lymphocytes % (Manual) Monocytes % (Manual) Abs Neuts (Manual) Lymphocytes # (Manual) Monocytes # (Manual) Toxic Vacuolation Dohle Bodies Platelet Estimate Plt Morphology Comment RBC Morphology Polychromasia Acanthocytes (Spur) Smear Tech's Comments Sodium Potassium Chloride Carbon Dioxide Anion Gap BUN Creatinine Estim Creat Clear Calc Estimated GFR Random Glucose Lactic Acid Lactic Acid F/U @ 2Hr Lactic Acid F/U @ 4Hr 3.1 H* Calcium Total Bilirubin AST ALT Alkaline Phosphatase Troponin I High Sens B-Natriuretic Peptide Total Protein Albumin Urine Color Urine Appearance Urine pH Ur Specific [place] Urine Protein Urine Glucose (UA) Urine Ketones Urine Blood Urine Nitrite Ur Leukocyte Esterase Urine RBC Urine WBC Ur Squamous Epith Cells Urine Bacteria Hyaline Casts Influenza Type A (PCR) Influenza Type B (PCR) RSV RNA Qual (PCR) SARS-CoV-2 RNA (RT-PCR) Assessment and Plan Final Anesthetic Review Family History of Problems with Anesthesia: No History of Problems with Anesthesia: No
[2022-07-01 12:57] LABS: Hematocrit 27.2 % (37.0-47.0); Hemoglobin 8.2 g/dl (12.0-16.0); Mean Corpuscular HGB Conc 30.1 g/dl (31.0-35.0); Mean Corpuscular Hemoglobin 26.3 pg (27.0-33.0); Mean Corpuscular Volume 87.2 fL (80.0-98.0); Mean Platelet Volume 11.1 fL (9.4-12.3); Platelet Count 233 X10*3/uL (160-400); Red Blood Count 3.12 X10*6/uL (4.20-5.50); Red Cell Distribution Width 17.9 % (11.0-16.0)
[2022-07-01 13:13] LABS: White Blood Count 32.8 X10*3/uL (4.8-10.8)
[2022-07-01 13:48] LABS: Alanine Aminotransferase 23 U/L (0-31); Albumin Level 3.5 g/dL (3.5-5.0); Alkaline Phosphatase 107 U/L (39-117); Anion Gap 17 (12-20); Aspartate Amino Transferase 49 U/L (5-31); Bilirubin Total 2.1 mg/dL (0.0-1.0); Blood Urea Nitrogen 27 mg/dL (9-16); Calcium 7.5 mg/dL (8.4-10.2); Carbon Dioxide 15 mmol/L (22-29); Chloride 110 mmol/L (96-108); Creatinine Clr Calc Pharmacy 22.1; Estimated Glomerular Filt Rate 24; Glucose Random 156 mg/dL (60-115); Potassium 4.3 mmol/L (3.3-5.1); Sodium 138 mmol/L (135-145); Total Protein 5.7 g/dL (6.5-8.0)
[2022-07-01 14:08] LABS: Lymphocytes Absolute Manual 0.3 X10*3/uL (1.2-4.9); Lymphocytes Percent Manual 1 % (20-40); Metamyelocytes Absolute 0.7 X10*3/uL; Metamyelocytes Percent 2 %; Neutrophils Percent Manual 69 % (45-73)
[2022-07-01 14:09] LABS: Band Neutrophils Percent 27 % (3-5); Monocytes Absolute Manual 0.3 X10*3/uL (0.1-1.2); Monocytes Percent Manual 1 % (2-11); Neutrophils Absolute Manual 31.5 X10*3/uL (2.0-8.3)
[2022-07-01 14:13] LABS: Acanthocytes 1+ (0-2) /OIF; Burr Cells 2+ (3-5) /OIF; Large Platelet PRESENT; Platelet Estimate NORMAL (NORMAL); Platelet Morphology Comment NOTED; RBC Morphology NOTED; Schistocytes 1+ (0-2) /OIF
[2022-07-01 14:14] LABS: Dohle Bodies PRESENT; Polychromasia 2+ (3-5) /OIF; Toxic Granulation PRESENT; Toxic Vacuolation PRESENT
--- NOTE | 2022-07-01 18:26 | PC.NURSE ---
Pt AAO to self, able to make needs known, requires frequent redirection otherwise is calm and cooperative. Pt had minimal UO, MD aware. Pt went to OR for cystoscopy and R stent placement at 0915; returned at 1015. Pt drowsy but easily arousable to light noise. Pt making urine initially cloudy pale yellow but is now draining jody/ turbid urine, MD aware. Pt reports improved RLQ pain, denies the need for pain meds at this time. Pt continues to be on Levophed gtt, able to wean down to 0.13mcg/kg/min. Pt on tele monitor, initially SA in the 120s-140s, currently in SR with occasional PVCs. Pt able to wean down to RA, satting in the mid 90s. Pt incontinent of BM, incontinence care provided as needed. Family at bedside, updated and all questions answered. Pt currently resting in bed with no acute distress. Afebrile. Pt bathed today, repositioned every 2 hrs and as needed. Safety maintained throughout. Will continue to monitor.
--- NOTE | 2022-07-01 20:19 | PHA.PROG ---
Admission Date/Time: July 01, 2022 04:59 Indication: sepsis Weight in k.1 kg Adjusted body weight in Kg: Cool body weight in Kg: Obesity Dosing Indication % IBW: Serum Creatinine - Last 168 Hours 07/01/22 07/01/22 07/01/22 02:43 04:36 07:27 Creatinine 1.33 1.82 H 1.83 H 07/01/22 12:29 Creatinine 1.99 H Estimated CrCl and GFR - Last 168 Hours 07/01/22 07/01/22 07/01/22 02:43 04:36 07:27 Estim Creat Clear Calc 32.0 23.4 23.3 Estimated GFR 39 27 27 07/01/22 12:29 Estim Creat Clear Calc 22.1 Estimated GFR 24 Vancomycin Loading Dose: 1500mg X 1 Current Vancomycin Dosing Regimen: 750mg Q24H Vancomycin Monitoring using AUC goal of 400 - 600 range with trough as surrogate marker: 534mg/L Date and Time for next Vancomycin Level to be drawn: 07/04/22 @1900 Pharmacist Comments on Vancomycin Plan: Pt's renal function poor, will continue to monitor and adjust accordingly Vancomycin dosing will take advantage of [employer] as a clinical decision support tool that uses Bayesian modeling to calculate individual patient's pharmacokinetic parameters and forecast the patient's drug concentration time course with the target goal AUC 24 range of 400 - 600 mg/L/hr.
[2022-07-01] MEDS: vancomycin HCL 1,500 MG in 0.9 % Sodium Chloride 500 ML 333.33 MG IV (20:52)
[2022-07-02] VITALS (21 sets, daily range): BP systolic 95–156; BP diastolic 46–75; PULSE 77–98; RESP 16–27; TEMP 37.4; O2SAT 91–97; BMI 25.9
[2022-07-02] MEDS: Piperacillin Sodium/Tazobactam 3.375 GM in 0.9 % Sodium Chloride 50 ML IV (00:30)
[2022-07-02] MEDS: 0.9 % Sodium Chloride Flush 3 ML SYRINGE IVFLUSH ×4 (00:31→21:23)
[2022-07-02 05:33] LABS: MANUAL DIFF FLAG NO
[2022-07-02 05:37] LABS: Basophils Absolute Auto 0.1 X10*3/uL (0.0-0.2); Basophils Percent Auto 0.6 % (0-2); Eosinophils Absolute Auto 0.1 X10*3/uL (0.0-0.4); Eosinophils Percent Auto 0.4 % (0-4); Hematocrit 27.6 % (37.0-47.0); Hemoglobin 8.2 g/dl (12.0-16.0); Imm Gran Abs Auto 0.22 X10*3/uL (0.00-0.03); Imm Gran Pct Auto 1.5 % (0.0-0.4); Lymphocytes Absolute Auto 0.8 X10*3/uL (1.2-4.9); Lymphocytes Percent Auto 5.5 % (20-40); Mean Corpuscular HGB Conc 29.7 g/dl (31.0-35.0); Mean Corpuscular Hemoglobin 26.5 pg (27.0-33.0); Mean Platelet Volume 11.3 fL (9.4-12.3); Monocytes Absolute Auto 0.8 X10*3/uL (0.1-1.2); Monocytes Percent Auto 5.9 % (2-11); Neutrophils Absolute Auto 12.2 x10*3/uL (2.0-8.3); Neutrophils Percent Auto 86.1 % (45-73); Platelet Count 173 X10*3/uL (160-400); Red Cell Distribution Width 17.9 % (11.0-16.0); White Blood Count 14.2 X10*3/uL (4.8-10.8)
[2022-07-02 05:51] LABS: Anion Gap 19 (12-20); Blood Urea Nitrogen 24 mg/dL (9-16); Calcium 7.5 mg/dL (8.4-10.2); Carbon Dioxide 16 mmol/L (22-29); Chloride 115 mmol/L (96-108); Estimated Glomerular Filt Rate 28; Glucose Random 110 mg/dL (60-115); Magnesium 1.5 mg/dL (1.6-2.6); Phosphorus 1.4 mg/dL (2.7-4.5); Potassium 3.9 mmol/L (3.3-5.1); Sodium 146 mmol/L (135-145)
[2022-07-02 06:09] LABS: Thyroid Stimulating Hormone 0.21 uIU/mL (0.32-4.0)
[2022-07-02] MEDS: Heparin Sodium,Porcine 5,000 UNIT/ML VIAL 5000 UNIT SUBCUT (08:31)
[2022-07-02] MEDS: Magnesium Sulfate/H2O 2 GM/50 ML PIGGYBACK IV (10:14)
[2022-07-02] MEDS: Sodium,Potassium Phosphates POWD.PACK 2 PACKET PO (10:14)
[2022-07-02] MEDS: Ampicillin Sodium/Sulbactam Na 3 GM in 0.9 % Sodium Chloride 100 ML IV ×2 (10:17→21:16)
--- NOTE | 2022-07-02 10:32 | P.PNCC_ITS ---
Subjective Subjective Date of Service: 07/02/22 Interval History: 77-year-old lady with underlying history AFib, hypothyroidism, prior UTI with renal stones admitted on 07/01/2022 with septic shock and Gram-positive bacteremia secondary to right obstructive renal calculus with hydronephrosis. Patient status post stenting and resolution of right hydronephrosis on 07/01/2022. Blood cultures growing Streptococcus and Enterococcus. Initially required pressors, titrated off overnight. Critical Care Time (minutes): 45 Physical Exam Vital Signs: Vital Signs: Last Vital Signs Temp 97.4 F 07/01/22 22:00 Pulse 96 07/02/22 10:00 Resp 23 H 07/02/22 10:00 BP 139/68 07/02/22 10:00 Pulse Ox 94 07/02/22 10:00 O2 Del Method 07/02/22 10:00 O2 Flow Rate 2 07/01/22 18:08 Oxygen Flow Rate 3 07/01/22 11:40 BMI result Body Mass Index 25.2 Const: General: no acute distress, alert and awake Eyes: Sclerae: sclerae normal EOM: EOMs intact bilaterally Neck: Neck: Yes no lymphadenopathy, Yes trachea midline and Yes supple Resp: Effort & Inspection: normal respiratory effort and no respiratory distress Auscultation: clear to auscultation bilaterally Cardio: Rate: regular rate Rhythm: regular rhythm Heart sounds: no gallops, no murmurs and no rubs GI: Palpation (GI): Soft to palpation and Other GI palpation findings present ( Nontender) Auscultation: normal bowel sounds Extrem: General: Yes no pedal edema, No clubbing and No cyanosis Objective Data Labs 07/02/22 05:13 07/02/22 05:13 Labs: Laboratory Results - last 24 hr 07/01/22 07/01/22 07/02/22 12:29 12:29 05:13 WBC 32.8 H* RBC 3.12 L Hgb 8.2 L Hct 27.2 L MCV 87.2 MCH 26.3 L MCHC 30.1 L RDW 17.9 H Plt Count 233 D MPV 11.1 Immature Gran % (Auto) Cancelled Neut % (Auto) Cancelled Lymph % (Auto) Cancelled [place] % (Auto) Cancelled Eos % (Auto) Cancelled Baso % (Auto) Cancelled Lymph # (Auto) Cancelled [place] # (Auto) Cancelled Eos # (Auto) Cancelled Baso # (Auto) Cancelled Abs Immat Gran (auto) Cancelled Absolute Neuts (auto) Cancelled Absolute Nucleated RBC 0.000 Nucleated RBC % (auto) 0.0 Neutrophils % (Manual) 69 Band Neutrophils % 27 H Lymphocytes % (Manual) 1 L Monocytes % (Manual) 1 L Metamyelocytes % 2 Abs Neuts (Manual) 31.5 H Lymphocytes # (Manual) 0.3 L Monocytes # (Manual) 0.3 Metamyelocytes # 0.7 Toxic Granulation PRESENT Toxic Vacuolation PRESENT Dohle Bodies PRESENT Platelet Estimate NORMAL Large Platelets PRESENT Plt Morphology Comment NOTED RBC Morphology NOTED Polychromasia 2+ (3-5) Jeol Cells 2+ (3-5) Acanthocytes (Spur) 1+ (0-2) Schistocytes 1+ (0-2) Sodium 138 Potassium 4.3 D Chloride 110 H Carbon Dioxide 15 L Anion Gap 17 BUN 27 H Creatinine 1.99 H Estim Creat Clear Calc 22.1 Estimated GFR 24 Random Glucose 156 H Calcium 7.5 L D Phosphorus Magnesium Total Bilirubin 2.1 H AST 49 H ALT 23 Alkaline Phosphatase 107 Total Protein 5.7 L Albumin 3.5 TSH 0.21 L 07/02/22 07/02/22 05:13 05:13 WBC 14.2 H RBC 3.10 L Hgb 8.2 L Hct 27.6 L MCV 89.0 MCH 26.5 L MCHC 29.7 L RDW 17.9 H Plt Count 173 D MPV 11.3 Immature Gran % (Auto) 1.5 H Neut % (Auto) 86.1 H Lymph % (Auto) 5.5 L [place] % (Auto) 5.9 Eos % (Auto) 0.4 Baso % (Auto) 0.6 Lymph # (Auto) 0.8 L [place] # (Auto) 0.8 Eos # (Auto) 0.1 Baso # (Auto) 0.1 Abs Immat Gran (auto) 0.22 H Absolute Neuts (auto) 12.2 H Absolute Nucleated RBC 0.000 Nucleated RBC % (auto) 0.0 Neutrophils % (Manual) Band Neutrophils % Lymphocytes % (Manual) Monocytes % (Manual) Metamyelocytes % Abs Neuts (Manual) Lymphocytes # (Manual) Monocytes # (Manual) Metamyelocytes # Toxic Granulation Toxic Vacuolation Dohle Bodies Platelet Estimate Large Platelets Plt Morphology Comment RBC Morphology Polychromasia [place] Cells Acanthocytes (Spur) Schistocytes Sodium 146 H Potassium 3.9 Chloride 115 H Carbon Dioxide 16 L Anion Gap 19 BUN 24 H Creatinine 1.76 H Estim Creat Clear Calc 25.0 Estimated GFR 28 Random Glucose 110 Calcium 7.5 L Phosphorus 1.4 L Magnesium 1.5 L Total Bilirubin AST ALT Alkaline Phosphatase Total Protein Albumin 3.0 L TSH Microbiology Microbiology Results: Microbiology 07/01/22 02:06 Blood - Venous Blood Culture - Preliminary Enterococcus/Streptococcus sp 07/01/22 02:06 Blood - Venous Blood Culture - Preliminary Enterococcus/Streptococcus sp Progress Note: A&P Assessment and plan (1) Septic shock: Status: Acute (2) Gram-positive bacteremia: Status: Acute (3) Hydronephrosis, right: Status: Acute (4) Afib: Status: Acute (5) Hypothyroidism: Status: Acute Plan Assessment: 77-year-old lady admitted with septic shock from Gram-positive bacteremia secondary to obstructive uropathy and right hydronephrosis secondary to renal stone, now status post stenting Plan: Neuro: No acute issues. Cardiac: Septic shock, resolved. Titrated off pressors. Underlying history of AFib. Pulmonary: No acute issues. Renal: Acute renal failure secondary to right obstructing renal calculus with hydronephrosis. Now status post stenting. Urology service care appreciated. Non oliguric. Continue to monitor renal indices and urine output. Endo: No acute issues. GI: No acute issues. ID: Gram-positive bacteremia with Streptococcus and Enterococcus with genitourinary source. Switch to Unasyn. Heme/Onc: No acute issues. Psych: No acute issues. Miscellaneous: No acute issues. Prophylaxis: Xarelto Diet: Regular Patient is now of vasopressor support and is stable for transfer to telemetry [place]. Critical care time spent: 45 minute Quality Stroke Does the patient have a stroke diagnosis?: No VTE Prior VTE?: No VTE Risk Level:: Medical - moderate - high VTE Device Contraindication: Treatment Not Indicated VTE Drug Contraindication: N/A - Med Ordered
[2022-07-02] MEDS: ondansetron HCL 4 MG/2 ML VIAL IVPUSH (11:08)
--- NOTE | 2022-07-02 11:37 | HO.POSTANES ---
Post Anesthesia Evaluation Post Anesthesia Evaluation Vital Signs: Vital Signs Pulse Resp BP Pulse Ox O2 Del Method 07/02/22 11:00 94 27 H 131/70 95 Room Air 07/02/22 10:00 96 23 H 139/68 94 Room Air 07/02/22 11:17 97 Room Air 07/02/22 09:00 96 23 H 138/55 L 91 L Room Air 07/02/22 08:00 98 24 H 133/62 94 Room Air 07/02/22 07:00 93 19 127/63 95 Room Air 07/02/22 06:56 128/55 L 07/02/22 05:35 126/53 L 07/02/22 05:25 123/55 L 07/02/22 04:26 135/53 L 07/02/22 06:00 97 18 121/46 L 95 Room Air 07/02/22 05:00 90 18 122/52 L 94 Room Air 07/02/22 04:00 83 17 125/57 L 95 Room Air 07/02/22 02:55 77 16 117/48 L 93 Room Air 07/02/22 01:54 78 18 136/56 L 95 Room Air 07/02/22 01:00 92 17 95/50 L 91 L Room Air 07/02/22 00:00 83 19 117/51 L 93 Room Air Anesthesia: Monitored Mental Status: Awake Pain Control: Satisfactory Nausea/Vomiting: None Hydration: Adequate Anesthesia-Related Issues: No Anes. Related Issues
--- NOTE | 2022-07-02 12:36 | P.PNUR_ITS ---
Subjective Subjective Date of Service: 07/02/22 Interval history: Great response to placement of stent Creatinine has changed modestly from 2.0 down to 1.7 WBC significant improvement from 30 to down to 14 Culture results show Enterococcus within blood. Urine culture result pending. She is sitting awake and catheter is draining well Catheter could be removed tomorrow Continue antibiotics per culture results Physical Exam Vital Signs: Vital Signs: Last Vital Signs Temp 97.4 F 07/01/22 22:00 Pulse 83 07/02/22 12:00 Resp 19 07/02/22 12:00 BP 129/75 07/02/22 12:00 Pulse Ox 95 07/02/22 12:00 O2 Del Method 07/02/22 12:00 O2 Flow Rate 2 07/01/22 18:08 Oxygen Flow Rate 3 07/01/22 11:40 BMI result Body Mass Index 25.2 Const: General: cooperative, healthy appearing, comfortable and no acute distress Orientation/consciousness: patient oriented x3 HEENT: Face and sinus: Yes normal facial exam Mouth: moist mucous membranes Neck: Neck: Yes normal visual inspection, Yes full ROM and Yes trachea midline Chest: Chest palpation & inspection: normal inspection of the chest Resp: Effort & Inspection: normal respiratory effort, able to speak in complete sentences and no respiratory distress GI: Inspection: Yes normal to inspection Back/Spine/Pelvis: Cervical Spine: normal cervical lordosis Thoracic/Lumbar Spine: thoracic and lumbar spine normal to inspection Skin: General skin exam: no rashes or lesions noted Neuro: General: patient oriented x3, gait normal, tone normal and moves all extremities Extrem: General: Yes normal to inspection and Yes capillary refill normal Urology Results Labs 07/02/22 05:13 07/02/22 05:13 Labs: Laboratory Results - last 24 hr 07/01/22 07/01/22 07/02/22 12:29 12:29 05:13 WBC 32.8 H* RBC 3.12 L Hgb 8.2 L Hct 27.2 L MCV 87.2 MCH 26.3 L MCHC 30.1 L RDW 17.9 H Plt Count 233 D MPV 11.1 Immature Gran % (Auto) Cancelled Neut % (Auto) Cancelled Lymph % (Auto) Cancelled [place] % (Auto) Cancelled Eos % (Auto) Cancelled Baso % (Auto) Cancelled Lymph # (Auto) Cancelled [place] # (Auto) Cancelled Eos # (Auto) Cancelled Baso # (Auto) Cancelled Abs Immat Gran (auto) Cancelled Absolute Neuts (auto) Cancelled Absolute Nucleated RBC 0.000 Nucleated RBC % (auto) 0.0 Neutrophils % (Manual) 69 Band Neutrophils % 27 H Lymphocytes % (Manual) 1 L Monocytes % (Manual) 1 L Metamyelocytes % 2 Abs Neuts (Manual) 31.5 H Lymphocytes # (Manual) 0.3 L Monocytes # (Manual) 0.3 Metamyelocytes # 0.7 Toxic Granulation PRESENT Toxic Vacuolation PRESENT Dohle Bodies PRESENT Platelet Estimate NORMAL Large Platelets PRESENT Plt Morphology Comment NOTED RBC Morphology NOTED Polychromasia 2+ (3-5) [place] Cells 2+ (3-5) Acanthocytes (Spur) 1+ (0-2) Schistocytes 1+ (0-2) Sodium 138 Potassium 4.3 D Chloride 110 H Carbon Dioxide 15 L Anion Gap 17 BUN 27 H Creatinine 1.99 H Estim Creat Clear Calc 22.1 Estimated GFR 24 Random Glucose 156 H Calcium 7.5 L D Phosphorus Magnesium Total Bilirubin 2.1 H AST 49 H ALT 23 Alkaline Phosphatase 107 Total Protein 5.7 L Albumin 3.5 TSH 0.21 L 07/02/22 07/02/22 05:13 05:13 WBC 14.2 H RBC 3.10 L Hgb 8.2 L Hct 27.6 L MCV 89.0 MCH 26.5 L MCHC 29.7 L RDW 17.9 H Plt Count 173 D MPV 11.3 Immature Gran % (Auto) 1.5 H Neut % (Auto) 86.1 H Lymph % (Auto) 5.5 L [place] % (Auto) 5.9 Eos % (Auto) 0.4 Baso % (Auto) 0.6 Lymph # (Auto) 0.8 L [place] # (Auto) 0.8 Eos # (Auto) 0.1 Baso # (Auto) 0.1 Abs Immat Gran (auto) 0.22 H Absolute Neuts (auto) 12.2 H Absolute Nucleated RBC 0.000 Nucleated RBC % (auto) 0.0 Neutrophils % (Manual) Band Neutrophils % Lymphocytes % (Manual) Monocytes % (Manual) Metamyelocytes % Abs Neuts (Manual) Lymphocytes # (Manual) Monocytes # (Manual) Metamyelocytes # Toxic Granulation Toxic Vacuolation Dohle Bodies Platelet Estimate Large Platelets Plt Morphology Comment RBC Morphology Polychromasia [place] Cells Acanthocytes (Spur) Schistocytes Sodium 146 H Potassium 3.9 Chloride 115 H Carbon Dioxide 16 L Anion Gap 19 BUN 24 H Creatinine 1.76 H Estim Creat Clear Calc 25.0 Estimated GFR 28 Random Glucose 110 Calcium 7.5 L Phosphorus 1.4 L Magnesium 1.5 L Total Bilirubin AST ALT Alkaline Phosphatase Total Protein Albumin 3.0 L TSH Progress Note: A&P Assessment and plan (1) Septic shock: Status: Acute (2) Acute UTI: Status: Acute (3) Kidney stone on right side: Status: Acute Plan continue to follow Time Spent With Patient Time: Total time managing care of this patient today ____ minutes. Progress Note: Quality Stroke Does the patient have a stroke diagnosis?: No
[2022-07-02 16:12] LABS: Venous Blood Gas Refer to POC result
[2022-07-02] MEDS: Rivaroxaban 15 MG TABLET PO (18:11)
[2022-07-02] MEDS: Magnesium Sulfate/D5W 1 GM/100 ML PIGGYBACK IV (18:11)
--- NOTE | 2022-07-02 18:21 | PC.NURSE ---
Per Dr. Velez patient ambulated to check HR with activities, start rate before ambulation was 78 bpm, after ambulating aprox 60 steps patient got short of breath and HR went up to 108 bpm
[2022-07-02 19:37] LABS: Vancomycin Random 12.6 mcg/mL (15-20)
[2022-07-03] VITALS (9 sets, daily range): BP systolic 111–172; BP diastolic 59–80; PULSE 76–95; RESP 14–20; TEMP 36.6–36.9; O2SAT 93–97
[2022-07-03] MEDS: Levothyroxine Sodium 100 MCG TABLET PO (05:37)
[2022-07-03 06:00] LABS: MANUAL DIFF FLAG NO
[2022-07-03 06:03] LABS: Basophils Absolute Auto 0.1 X10*3/uL (0.0-0.2); Basophils Percent Auto 0.4 % (0-2); Eosinophils Absolute Auto 0.2 X10*3/uL (0.0-0.4); Eosinophils Percent Auto 1.3 % (0-4); Hematocrit 28.3 % (37.0-47.0); Hemoglobin 8.7 g/dl (12.0-16.0); Imm Gran Pct Auto 2.2 % (0.0-0.4); Lymphocytes Absolute Auto 1.3 X10*3/uL (1.2-4.9); Lymphocytes Percent Auto 9.6 % (20-40); Mean Corpuscular HGB Conc 30.7 g/dl (31.0-35.0); Mean Corpuscular Hemoglobin 26.4 pg (27.0-33.0); Mean Platelet Volume 10.9 fL (9.4-12.3); Monocytes Absolute Auto 0.8 X10*3/uL (0.1-1.2); Monocytes Percent Auto 5.8 % (2-11); Neutrophils Percent Auto 80.7 % (45-73); Platelet Count 156 X10*3/uL (160-400); Red Blood Count 3.29 X10*6/uL (4.20-5.50); Red Cell Distribution Width 17.9 % (11.0-16.0); White Blood Count 13.7 X10*3/uL (4.8-10.8)
[2022-07-03 06:45] LABS: Albumin Level 3.1 g/dL (3.5-5.0); Anion Gap 13 (12-20); Blood Urea Nitrogen 13 mg/dL (9-16); Calcium 7.8 mg/dL (8.4-10.2); Carbon Dioxide 21 mmol/L (22-29); Chloride 112 mmol/L (96-108); Creatinine Clr Calc Pharmacy 38.8; Estimated Glomerular Filt Rate 42; Glucose Random 109 mg/dL (60-115); Magnesium 1.9 mg/dL (1.6-2.6); Phosphorus 1.2 mg/dL (2.7-4.5); Sodium 143 mmol/L (135-145)
--- NOTE | 2022-07-03 07:13 | HO.PM.IMPN ---
Subjective Subjective Date of Service: 07/03/22 Interval History: f/u on septic shock, obstructive uropathy, bacteremia interval history: feels better, no abd pain Review of Systems no fever no abd pain Physical Exam Vital Signs: Vital Signs: Last Vital Signs Temp 98.2 F 07/03/22 03:49 Pulse 89 07/03/22 03:49 Resp 14 07/03/22 03:49 BP 150/70 H 07/03/22 03:49 Pulse Ox 96 07/03/22 03:49 O2 Del Method 07/03/22 03:49 O2 Flow Rate 2 07/01/22 18:08 Oxygen Flow Rate 3 07/01/22 11:40 BMI result Body Mass Index 25.9 Const: Other: General: AO X 3, no acute distress Resp: CTA bilateral CVS: S1,S2,RRR GI: +BS, NT, no distention Skin: No rash Neuro: motor grossly intact Psych: appropriate affect Objective Data Active Medications Acetaminophen (Acetaminophen 325 Mg Tablet) 650 mg PO Q6H PRN PRN Reason: Pain, Mild (Pain Scale 1-3) Last Admin: 07/01/22 08:40 Dose: 650 mg Documented By: ABIDA Ampicillin Sodium/Sulbactam (Sodium 3 gm/ Sodium Chloride) 100 mls @ 200 mls/hr IV Q12H [facility] Last Infusion: 07/02/22 22:09 Dose: 0 mls/hr Documented By: ABDON Levothyroxine Sodium (Levothyroxine Sodium 100 Mcg Tablet) 100 mcg PO DAILY@0600 [facility] Last Admin: 07/03/22 05:37 Dose: 100 mcg Documented By: ABDON Melatonin (Melatonin 3 Mg Tablet) 6 mg PO BEDTIME PRN PRN Reason: Insomnia Omeprazole (Omeprazole 20 Mg/10 Ml Susp.Recon) 40 mg PO DAILY@0630 [facility] Last Admin: 07/03/22 05:37 Dose: 40 mg Documented By: ABDON Ondansetron HCl (Ondansetron Hcl 4 Mg/2 Ml Vial) 4 mg IVPUSH Q8H PRN PRN Reason: Nausea and Vomiting Last Admin: 07/02/22 11:08 Dose: 4 mg Documented By: ALFA Potassium Chloride (Potassium Chloride Packet 20 Meq Packet) 40 meq PO ONCE ONE Stop: 07/03/22 07:12 Rivaroxaban (Rivaroxaban 15 Mg Tablet) 15 mg PO DAILY@1800 [facility] Last Admin: 07/02/22 18:11 Dose: 15 mg Documented By: ISAÍAS Sodium Chloride (0.9 % Sodium Chloride Flush 3 Ml Syringe) 3 ml IVFLUSH QSHIFT [facility] Last Admin: 07/02/22 21:23 Dose: 3 ml Documented By: JULIUSRISTiffany Labs 07/03/22 05:39 07/03/22 05:39 Labs: Laboratory Results - last 24 hr 07/02/22 07/03/22 07/03/22 19:08 05:39 05:39 MCV 86.0 MCH 26.4 L MCHC 30.7 L RDW 17.9 H Plt Count 156 L MPV 10.9 Immature Gran % (Auto) 2.2 H Neut % (Auto) 80.7 H Lymph % (Auto) 9.6 L [place] % (Auto) 5.8 Eos % (Auto) 1.3 Baso % (Auto) 0.4 Lymph # (Auto) 1.3 [place] # (Auto) 0.8 Eos # (Auto) 0.2 Baso # (Auto) 0.1 Abs Immat Gran (auto) 0.30 H Absolute Neuts (auto) 11.0 H Absolute Nucleated RBC 0.000 Nucleated RBC % (auto) 0.0 Anion Gap 13 Estim Creat Clear Calc 38.8 Estimated GFR 42 Random Glucose 109 Calcium 7.8 L Phosphorus 1.2 L Magnesium 1.9 Albumin 3.1 L Random Vancomycin 12.6 L Microbiology Microbiology Results: Microbiology 07/01/22 02:06 Blood Culture - Preliminary Blood - Venous Enterococcus/Streptococcus sp Prelim: GNR Gram Stain only 07/01/22 02:06 Blood Culture - Preliminary Blood - Venous Enterococcus/Streptococcus sp 07/01/22 Unknown Urine Culture - Preliminary Urine Other - Kidney Right Culture in progress. 07/01/22 Unknown Urine Culture - Preliminary Urine Catheterized - Levy Catheter Culture in progress. Assessment and Plan (1) Septic shock: Status: Acute (2) Kidney stone on right side: Status: Acute (3) Gram-positive bacteremia: Status: Acute (4) Hydronephrosis, right: Status: Acute (5) Afib: Status: Acute Plan 77-year-old lady with underlying history AFib, hypothyroidism, prior UTI with renal stones admitted on 07/01/2022 with septic shock and Gram-positive bacteremia secondary to right obstructive renal calculus with hydronephrosis.? Patient status post stenting and resolution of right hydronephrosis on 07/01/2022.? Blood cultures growing Streptococcus and Enterococcus.? Initially required pressors, Hypotension resolved Septic shock d/t infected kidney stone, off pressors sepsis and shock resolved. Polymicrobial bacteremia (enteroccocus and streptococcus) -continue Unasyn -ID consult DORON--d/t obstructive uropathy-resolved following stent HTN--Restart metoprolol and increase to 25 bid permanent AFIB-- Metoprolol as above, continue Xarelto at 20 HLD--continue Lipitor Hypothyroidism--levothyroxine reduced from 112 to 100 d/ low TSH Hypokalemia--Oral KCL GERD. PPI consider changing to H2B b/o hypomagnesemia Prophylaxis:? Xarelto Need for inpatient: Obstructive uropathy with septic shock, bacteremia and requiring IV Abx and monitoring of cultures DNR Time Spent With Patient Time: Total time managing care of this patient today ____ minutes. Quality Stroke Does the patient have a stroke diagnosis?: No VTE Prior VTE?: No VTE Risk Level:: Medical - moderate - high VTE Device Contraindication: Treatment Not Indicated VTE Drug Contraindication: N/A - Med Ordered
[2022-07-03] MEDS: Metoprolol Tartrate 25 MG TABLET PO ×2 (07:53→20:18)
[2022-07-03] MEDS: Morphine Sulfate ER 15 MG TABLET.ER PO (07:53)
[2022-07-03] MEDS: DULoxetine HCl 60 MG CAPSULE.DR PO (07:55)
[2022-07-03] MEDS: Potassium Chloride Packet 20 MEQ PACKET 40 MEQ PO (07:55)
[2022-07-03] MEDS: 0.9 % Sodium Chloride Flush 3 ML SYRINGE IVFLUSH ×3 (07:55→23:13)
[2022-07-03] MEDS: Magnesium Oxide 400 MG TABLET PO (07:55)
[2022-07-03] MEDS: Ampicillin Sodium/Sulbactam Na 3 GM in 0.9 % Sodium Chloride 100 ML IV ×2 (09:29→22:04)
--- NOTE | 2022-07-03 14:30 | PC.NURSE ---
Levy was removed at 1430. pt is due to void at [id number].
[2022-07-03] MEDS: Rivaroxaban 20 MG TABLET PO (18:00)
[2022-07-03] MEDS: Atorvastatin Calcium 40 MG TABLET PO (20:18)
[2022-07-03] MEDS: Melatonin 3 MG TABLET PO (20:18)
[2022-07-03] MEDS: Sennosides 8.6 MG TABLET PO (20:18)
--- NOTE | 2022-07-04 03:02 | PC.NURSE ---
Assumed care at 2300. asleep when first seen, awaken and responded appropriately when spoken to, denies any pain, call barba instructed, bed alarm on.
[2022-07-04 03:17] VITALS: BP 132/67; PULSE 68; RESP 20; TEMP 36.5; O2SAT 92
[2022-07-04] MEDS: Levothyroxine Sodium 100 MCG TABLET PO (05:23)
[2022-07-04 06:18] LABS: Creatinine Clr Calc Pharmacy 48.1; Estimated Glomerular Filt Rate 54
--- NOTE | 2022-07-04 07:00 | CA_ITS ---
Transthoracic Echocardiogram Patient (Last, First, Middle): Marian Richardson, Gender: Female Date of : 1945 Age: 77 Procedure Date: 07/04/2022 Procedure Type: Transthoracic Echocardiogram Location: [facility] [place] Height: 167.64 cm Weight: 72.58 kg BSA: 1.82 m2 Heart Rate: bpm BP: 146 / 68 mmHg Community Relations Liaison: Referring MD: Syd Richey MD Symptoms: bacteremia Study Quality: Fair ECG Rhythm: Sinus Conclusions: - The left ventricular systolic function is normal. The visually estimated ejection fraction is between 55-60%. - The basal inferior segment is hypokinetic. - No obvious valvular pathology seen on this study. Findings Left Ventricle Normal left ventricular cavity size. There is normal left ventricular wall thickness. The left ventricular systolic function is normal. The visually estimated ejection fraction is between 55-60%. There is no evidence of regional wall motion abnormalities. Diastolic function is normal for age. Wall Motion Rest Echo Findings The basal inferior segment is hypokinetic. Right Ventricle Normal right ventricular cavity size and systolic function. Atria Both atria are normal in size. Aortic Valve The aortic valve structure and function is likely normal. There is no aortic valve stenosis. There is no aortic valve regurgitation. Mitral Valve The mitral valve appears normal. There is no mitral valve regurgitation. There is no mitral valve stenosis. Pulmonic Valve The pulmonic valve is likely normal. Tricuspid Valve Normal tricuspid valve structure. There is trace tricuspid valve regurgitation. There is no evidence of pulmonary hypertension. Great Vessels The aortic annulus, sinuses of valsalva, and asc aorta are normal in size. Venous The inferior vena cava is normal in size and collapses greater than 50% with inspiration. Pericardium/Pleural There is no evidence of pericardial effusion. Prior Study Comparison No prior study available for comparison. Recommendations, Care & Conclusions No obvious valvular pathology seen on this study. Consider a CON if clinically appropriate. Measurements 2D Linear Measurements IVSd: 0.93 0.6-0.9/0.6-1.0 cm LVIDd: 4.14 3.9-5.3/4.2-5.9 cm LVIDd Index: 2.27 2.4-3.2/2.2-3.1 cm/m2 LVIDs: 2.90 2.0-3.6 cm LVPWd: 0.99 0.7-1.1 cm Ao Root: 2.80 2.1-3.5 cm LA Diam: 2.60 2.7-3.8/3.0-4.0 cm LAIDs Index: 1.43 1.5-2.3 cm/m2 LV Mass: 157.77 67-162/88-224 g LV Mass Index: 86.68 43-95/49-115 g/m2 LVOT Diam: 2.00 3.0+(-)1.3 cm 2D Systolic Function EF 4C: 59.60 >55% EF 2C: 55.10 >55% Mitral Valve MV Pk E: 0.81 MV PK A: 1.19 MV Decel Time: 194.00 E/A: 0.70 E'Lateral: 9.25 E'Medial: 6.20 E/E' Med: 13.10 E/E' Lat: 8.80 PHT: 57.00 MVA PHT: 3.86 Decel [place]: 4.20 Aortic Valve AoV Pk Praveen: 1.35 AoV Mn Praveen: 0.85 AoV VTI: 0.27 AoV Pk Grad: 7.00 Aov Mn Grad: 4.00 CANDIE Cont.VTI: 2.26 LVOT LVOT Pk Praveen: 0.81 LVOT Mn Praveen: 0.54 LVOT VTI: 0.20 LVOT Pk Grad: 3.00 LVOT Mn Grad: 1.00 LVOT Diam: 2.00 LVOT Area: 3.14 Diastolic Function MV Pk E: 0.81 MV Pk A: 1.19 E/A: 0.70 E'Medial: 6.20 E/E' Med: 13.10 E' Laterial: 9.25 E/E' Lat: 8.80 Tricuspid Valve TR Pk Praveen: 2.30 TR Pk Grad: 21.00 RA Press: 3.00 RVSP: 24.00 Great Vessels Aorta Ao Root-2D: 2.80 2.0-3.7 cm Ao Asc: 2.70 2.1-3.4 cm Pulmonary Valve PV Pk Praveen: 0.98 Peak PV Grad: 4.00 Updated in Other Vendor System with Status of Final Smooth Rojas MD electronically signed on 07/04/2022 5:01:23 PM with status of Final
[2022-07-04 07:30] VITALS: BP 146/68; PULSE 75; RESP 22; TEMP 36.2; O2SAT 96
[2022-07-04] MEDS: 0.9 % Sodium Chloride Flush 3 ML SYRINGE IVFLUSH ×3 (08:05→20:52)
[2022-07-04] MEDS: Morphine Sulfate ER 15 MG TABLET.ER PO (08:05)
[2022-07-04 08:06] LABS: VBG Base Excess -7.4 mmol/L; VBG HCO3 16 mmol/L (22-26); VBG pCO2 25 mmHg; VBG pO2 42 mmHg
[2022-07-04] MEDS: Acetaminophen 325 MG TABLET 650 MG PO ×2 (08:06→16:08)
[2022-07-04] MEDS: Metoprolol Tartrate 25 MG TABLET PO ×2 (08:06→20:52)
[2022-07-04] MEDS: DULoxetine HCl 60 MG CAPSULE.DR PO (08:06)
[2022-07-04] MEDS: Magnesium Oxide 400 MG TABLET PO (08:06)
--- NOTE | 2022-07-04 08:06 | P.PNIM_ITS ---
Subjective Subjective Date of Service: 07/04/22 Interval History: f/u on septic shock, obstructive uropathy, bacteremia interval history: feels better, no abd pain, no fever. Cutlures Strep viridan and E. Feacalis Review of Systems no fever no abd pain Physical Exam Vital Signs: Vital Signs: Last Vital Signs Temp 97.1 F 07/04/22 07:30 Pulse 75 07/04/22 07:30 Resp 22 H 07/04/22 07:30 BP 146/68 H 07/04/22 07:30 Pulse Ox 96 07/04/22 07:30 O2 Del Method 07/04/22 07:30 O2 Flow Rate 2 07/01/22 18:08 Oxygen Flow Rate 3 07/01/22 11:40 BMI result Body Mass Index 25.9 Const: Other: General: AO X 3, no acute distress Resp: CTA bilateral CVS: S1,S2,RRR GI: +BS, NT, no distention Skin: No rash Neuro: motor grossly intact Psych: appropriate affect Objective Data Active Medications Acetaminophen (Acetaminophen 325 Mg Tablet) 650 mg PO Q6H PRN PRN Reason: Pain, Mild (Pain Scale 1-3) Last Admin: 07/01/22 08:40 Dose: 650 mg Documented By: ABIDA Atorvastatin Calcium (Atorvastatin Calcium 40 Mg Tablet) 40 mg PO BEDTIME [facility] Last Admin: 07/03/22 20:18 Dose: 40 mg Documented By: CHRIST Bisacodyl (Bisacodyl 10 Mg Supp.Rect) 10 mg [place] DAILY PRN PRN Reason: Constipation Duloxetine HCl (Duloxetine Hcl 60 Mg Capsule.) 60 mg PO DAILY [facility] Last Admin: 07/03/22 07:55 Dose: 60 mg Documented By: CALEB Ampicillin Sodium/Sulbactam (Sodium 3 gm/ Sodium Chloride) 100 mls @ 200 mls/hr IV Q12H [facility] Last Infusion: 07/03/22 22:37 Dose: 0 mls/hr Documented By: CHRIST Levothyroxine Sodium (Levothyroxine Sodium 100 Mcg Tablet) 100 mcg PO DAILY@0600 [facility] Last Admin: 07/04/22 05:23 Dose: 100 mcg Documented By: CASTILTiffany Magnesium Hydroxide (Milk Of Magnesia 30 Ml Oral.Susp) 30 ml PO DAILY PRN PRN Reason: Constipation Magnesium Oxide (Magnesium Oxide 400 Mg Tablet) 400 mg PO DAILY [facility] Last Admin: 07/03/22 07:55 Dose: 400 mg Documented By: CALEB Melatonin (Melatonin 3 Mg Tablet) 6 mg PO BEDTIME PRN PRN Reason: Insomnia Melatonin (Melatonin 3 Mg Tablet) 3 mg PO BEDTIME [facility] Last Admin: 07/03/22 20:18 Dose: 3 mg Documented By: CHRIST Metoprolol Tartrate (Metoprolol Tartrate 25 Mg Tablet) 25 mg PO BID [facility]; Protocol Last Admin: 07/03/22 20:18 Dose: 25 mg Documented By: CHRIST Morphine Sulfate (Morphine Sulfate Er 15 Mg Tablet.Er) 15 mg PO DAILY [facility] Last Admin: 07/03/22 07:53 Dose: 15 mg Documented By: CALEB Omeprazole (Omeprazole 20 Mg/10 Ml Susp.Recon) 40 mg PO DAILY@0630 [facility] Last Admin: 07/04/22 05:23 Dose: 40 mg Documented By: CATERINA Ondansetron HCl (Ondansetron Hcl 4 Mg/2 Ml Vial) 4 mg IVPUSH Q8H PRN PRN Reason: Nausea and Vomiting Last Admin: 07/02/22 11:08 Dose: 4 mg Documented By: ALFA Rivaroxaban (Rivaroxaban 20 Mg Tablet) 20 mg PO DAILY@1700 [facility] Last Admin: 07/03/22 18:00 Dose: 20 mg Documented By: CALEB Senna (Sennosides 8.6 Mg Tablet) 8.6 mg PO BEDTIME [facility] Last Admin: 07/03/22 20:18 Dose: 8.6 mg Documented By: CHRIST Sodium Biphosphate/Sodium Phosphate (Sodium Phosphate,[place]-Dibasic 133 Ml Enema) 118 ml [place] DAILY PRN PRN Reason: Constipation Sodium Chloride (0.9 % Sodium Chloride Flush 3 Ml Syringe) 3 ml IVFLUSH QSHIFT [facility] Last Admin: 07/03/22 23:13 Dose: 3 ml Documented By: CATERINA Labs 07/03/22 05:39 07/04/22 05:34 Labs: Laboratory Results - last 24 hr 07/04/22 05:34 Estim Creat Clear Calc 48.1 Estimated GFR 54 Microbiology Microbiology Results: Microbiology 07/01/22 Unknown Urine Culture - Final Urine Catheterized - Levy Catheter Enterococcus faecalis Streptococcus viridans group 07/01/22 02:06 Blood Culture - Preliminary Blood - Venous Enterococcus faecalis Prelim: GNR Gram Stain only 07/01/22 Unknown Urine Culture - Final Urine Other - Kidney Right 07/01/22 02:06 Blood Culture - Final Blood - Venous Enterococcus faecalis Assessment and Plan (1) Acute UTI: Status: Acute (2) Septic shock: Status: Acute (3) Kidney stone on right side: Status: Acute (4) Gram-positive bacteremia: Status: Acute Plan 77-year-old lady with underlying history AFib, hypothyroidism, prior UTI with renal stones admitted on 07/01/2022 with septic shock and Gram-positive bacteremia secondary to right obstructive renal calculus with hydronephrosis.? Patient status post stenting and resolution of right hydronephrosis on 07/01.? Blood cultures growing Streptococcus and Enterococcus.? Initially required pressors, Hypotension resolved Septic shock d/t infected kidney stone, off pressors sepsis and shock resolved. Polymicrobial bacteremia (enteroccocus feacalis,and streptococcus viridan) -continue Unasyn, change to Ceftriaxone and Flagyl -echo -ID consult DORON--d/t obstructive uropathy-resolved following stent HTN--Restart metoprolol and increase to 25 bid permanent AFIB-- Metoprolol as above, continue Xarelto at 20 HLD--continue Lipitor Hypothyroidism--levothyroxine reduced from 112 to 100 d/ low TSH Hypokalemia--Oral KCL GERD. PPI consider changing to H2B b/o hypomagnesemia Prophylaxis:? Xarelto Need for inpatient: Obstructive uropathy with septic shock, bacteremia and requiring IV Abx and monitoring of cultures DNR Time Spent With Patient Time: Total time managing care of this patient today ____ minutes. Quality Stroke Does the patient have a stroke diagnosis?: No VTE Prior VTE?: No VTE Risk Level:: Medical - moderate - high VTE Device Contraindication: Treatment Not Indicated VTE Drug Contraindication: N/A - Med Ordered
[2022-07-04] MEDS: cefTRIAXone sodium 2 GM in 0.9 % Sodium Chloride 50 ML IV (08:31)
[2022-07-04] MEDS: metroNIDAZOLE/NS 500 MG/100 ML PIGGYBACK 100 MG IV (09:07)
--- NOTE | 2022-07-04 10:29 | MHC.CM.PN ---
Per ROUNDS discussion, Patient is not yet medically cleared for dc (monitoring of cultures, IV Ceftriaxone, IV Flagyl); returning to LTC @ [facility] is the goal and CM will continue to follow.
[2022-07-04 11:50] VITALS: BP 120/67; PULSE 59; RESP 22; TEMP 36.4; O2SAT 96
--- NOTE | 2022-07-04 13:07 | W.PM.IDCN ---
History of Present Illness Data of Consult Service Date: 07/04/22 Requesting physician: Syd Castle Primary Care Provider: None Physician HPI Reason for consult: bacteremia,nephrolithiasis She presents with weakness and temperature 103.4 from facility. She has dementia and is poor historian . Blood cultures gram negative and enterococcus. Urine has strep viridans and enterococcus. CT scan shows right hydronephrosis and calculi and she received renal stent on 07/01. Review of Systems Review of Systems: Yes Unobtainable due to mental status PMFSH Past Medical History Medical History Cerebral infarct Spinal stenosis, thoracic region Family History Family history: reviewed and not pertinent Social History Social History Household Members: Other Household Members Other:: NA Housing: Long-Term Patient Tobacco Use Status: Former Tobacco user Tobacco use type: Cigarette Smoked in Last 30 Days: No e-Cigarette/Vaping Use: Never Used Patient Interested in Nicotine Replacement: No (NA) Patient Given Instructions on How to Stop Smoking: No (NA) Second Hand Smoke Exposure: No Use of substances other than those prescribed or required for medical reasons: No Substance Use Type: Caffiene Substance Use Type Other:: 1-2 cup of tea Substance Use Frequency: Daily Currently Displaying Signs/Symptoms of Drug Intoxication Withdrawal: No Have you been hit, kicked, punched, or otherwise hurt by someone within the past year? If so, by whom?: No Do you feel safe in your current relationship?: No Current Relationship Is there a partner from a previous relationship who is making you feel unsafe now?: No Are you made to feel afraid or neglected: No Spiritual Healthcare Practices: Praying Advance Directives: No Advance Directives Information Provided: Yes Do you have thoughts of harming others: None Recently lost weight without trying: No How much weight loss: Not applicable Eating poorly because of decreased appetite: No Nutrition screen score: 0 Nutrition Risks: No Nutritional Risk Patient : No : No Poor oral hygiene: No service: No Current occupational status: retired Meds Allergies Allergy/AdvReac Type Severity Reaction Status Date / Time No Known Allergies Allergy Verified 07/01/22 09:35 [No Known Allergies*] Active Medications: Current Medications Acetaminophen (Acetaminophen 325 Mg Tablet) 650 mg PO Q6H PRN PRN Reason: Pain, Mild (Pain Scale 1-3) Last Admin: 07/04/22 08:06 Dose: 650 mg Atorvastatin Calcium (Atorvastatin Calcium 40 Mg Tablet) 40 mg PO BEDTIME [facility] Last Admin: 07/03/22 20:18 Dose: 40 mg Bisacodyl (Bisacodyl 10 Mg Supp.Rect) 10 mg [place] DAILY PRN PRN Reason: Constipation Duloxetine HCl (Duloxetine Hcl 60 Mg Capsule.Dr) 60 mg PO DAILY [facility] Last Admin: 07/04/22 08:06 Dose: 60 mg Levothyroxine Sodium (Levothyroxine Sodium 100 Mcg Tablet) 100 mcg PO DAILY@0600 [facility] Last Admin: 07/04/22 05:23 Dose: 100 mcg Magnesium Hydroxide (Milk Of Magnesia 30 Ml Oral.Susp) 30 ml PO DAILY PRN PRN Reason: Constipation Magnesium Oxide (Magnesium Oxide 400 Mg Tablet) 400 mg PO DAILY [facility] Last Admin: 07/04/22 08:06 Dose: 400 mg Melatonin (Melatonin 3 Mg Tablet) 6 mg PO BEDTIME PRN PRN Reason: Insomnia Melatonin (Melatonin 3 Mg Tablet) 3 mg PO BEDTIME [facility] Last Admin: 07/03/22 20:18 Dose: 3 mg Metoprolol Tartrate (Metoprolol Tartrate 25 Mg Tablet) 25 mg PO BID [facility]; Protocol Last Admin: 07/04/22 08:06 Dose: 25 mg Morphine Sulfate (Morphine Sulfate Er 15 Mg Tablet.Er) 15 mg PO DAILY [facility] Last Admin: 07/04/22 08:05 Dose: 15 mg Omeprazole (Omeprazole 20 Mg/10 Ml Susp.Recon) 40 mg PO DAILY@0630 [facility] Last Admin: 07/04/22 05:23 Dose: 40 mg Ondansetron HCl (Ondansetron Hcl 4 Mg/2 Ml Vial) 4 mg IVPUSH Q8H PRN PRN Reason: Nausea and Vomiting Last Admin: 07/02/22 11:08 Dose: 4 mg Rivaroxaban (Rivaroxaban 20 Mg Tablet) 20 mg PO DAILY@1700 [facility] Last Admin: 07/03/22 18:00 Dose: 20 mg Senna (Sennosides 8.6 Mg Tablet) 8.6 mg PO BEDTIME [facility] Last Admin: 07/03/22 20:18 Dose: 8.6 mg Sodium Biphosphate/Sodium Phosphate (Sodium Phosphate,[place]-Dibasic 133 Ml Enema) 118 ml [place] DAILY PRN PRN Reason: Constipation Sodium Chloride (0.9 % Sodium Chloride Flush 3 Ml Syringe) 3 ml [facility] [place] Admin: 07/04/22 08:05 Dose: 3 ml Home Medications Medication Instructions Recorded Confirmed Last Taken Type acetaminophen 325 mg tablet 650 mg PO Q4H PRN Pain 07/01/22 07/01/22 Unknown History (Tylenol) atorvastatin 40 mg tablet 1 tab PO BEDTIME 07/01/22 07/01/22 Unknown History bisacodyl 10 mg rectal suppository 10 mg [place] DAILY PRN Constipation 07/01/22 07/01/22 Unknown History duloxetine 60 mg capsule,delayed 1 cap PO DAILY 07/01/22 07/01/22 Unknown History release levothyroxine 112 mcg tablet 1 tab PO DAILY@0600 07/01/22 07/01/22 Unknown History magnesium hydroxide 400 mg/5 mL 30 ml PO DAILY PRN Constipation 07/01/22 07/01/22 Unknown History oral suspension (Milk of Magnesia) magnesium oxide 400 mg (241.3 mg 400 mg PO DAILY 07/01/22 07/01/22 Unknown History magnesium) tablet melatonin 3 mg tablet 3 mg PO BEDTIME 07/01/22 07/01/22 Unknown History metoprolol tartrate 25 mg tablet 0.5 tab PO BID 07/01/22 07/01/22 Unknown History morphine 15 mg tablet,extended 1 tab PO DAILY 07/01/22 07/01/22 Unknown History release ondansetron HCl 4 mg tablet 4 mg PO Q6H PRN Nausea And Vomiting 07/01/22 07/01/22 Unknown History pantoprazole 20 mg tablet,delayed 1 tab PO DAILY@0630 07/01/22 07/01/22 Unknown History release rivaroxaban 20 mg tablet (Xarelto) 1 tab PO DAILY@1700 07/01/22 07/01/22 Unknown History sennosides 8.6 mg tablet (senna) 8.6 mg PO BEDTIME 07/01/22 07/01/22 Unknown History sodium phosphates 19 gram-7 118 ml [place] DAILY PRN Constipation 07/01/22 07/01/22 Unknown History gram/118 mL enema (Fleet Enema) Physical Exam Vital Signs: Vital Signs: Last Vital Signs Temp 97.6 F 07/04/22 11:50 Pulse 59 07/04/22 11:50 Resp 22 H 07/04/22 11:50 BP 120/67 07/04/22 11:50 Pulse Ox 96 07/04/22 11:50 O2 Del Method 07/04/22 11:50 O2 Flow Rate 2 07/01/22 18:08 Oxygen Flow Rate 3 07/01/22 11:40 BMI result Body Mass Index 25.9 Const: General: cooperative HEENT: Head: Yes normal to inspection Face and sinus: Yes normal facial exam Mouth: Normal oral and palatal mucosa present Teeth and gingiva: dentition normal Eyes: General: appearance normal, both eyes and all related structures Pupils: Equal, round and reactive pupils present Resp: Effort & Inspection: normal respiratory effort Cardio: Rate: regular rate Rhythm: regular rhythm GI: Palpation (GI): Soft to palpation and nontender : General: Yes no CVA tenderness Back/Spine/Pelvis: Back: no CVA tenderness Skin: General skin exam: no rashes or lesions noted Neuro: General: moves all extremities Cranial nerves: Yes Equal, round and reactive pupils present Extrem: General: Yes normal to inspection Psych: Other: confusion Results Labs 07/03/22 05:39 07/04/22 05:34 Labs: BMP 07/04/22 05:34 Creatinine 1.00 Microbiology Microbiology Results: Microbiology 07/01/22 02:06 Blood - Venous Blood Culture - Preliminary Enterococcus faecalis Gram negative ezekiel 07/01/22 Unknown Urine Catheterized - Levy Catheter Urine Culture - Final Enterococcus faecalis Streptococcus viridans group 07/01/22 Unknown Urine Other - Kidney Right Urine Culture - Final 07/01/22 02:06 Blood - Venous Blood Culture - Final Enterococcus faecalis Assessment and Plan (1) Acute UTI: Status: Acute (2) Septic shock: Status: Acute She has enterococcus as primary pathogen in blood and also gram negative. It is sensitive to penicillins and Vancomycin. She has some strep viridans in urine as well which may be contaminant. (3) Kidney stone on right side: Status: Acute (4) Hydronephrosis, right: Status: Acute (5) Gram-positive bacteremia: Status: Acute Plan Would prescribe piperacillin/tazobactam at this time due to enterococcus. After final cultures on gram negative organism back can tailor treatment,possible Ampicillin for three weeks but need to find out sensitivities of gram negative organism. Find out results of echo Time Spent With Patient Time: Total time managing care of this patient today ____ minutes.
[2022-07-04 16:00] VITALS: BP 143/66; PULSE 71; RESP 19; TEMP 36.4; O2SAT 94
[2022-07-04] MEDS: Rivaroxaban 20 MG TABLET PO (16:09)
[2022-07-04 19:27] VITALS: BP 141/66; RESP 19; TEMP 36.4; O2SAT 96
[2022-07-04] MEDS: Atorvastatin Calcium 40 MG TABLET PO (20:51)
[2022-07-04] MEDS: Sennosides 8.6 MG TABLET PO (20:52)
[2022-07-04] MEDS: Melatonin 3 MG TABLET PO (20:52)
[2022-07-05] VITALS (8 sets, daily range): BP systolic 139–162; BP diastolic 63–72; PULSE 60–70; RESP 15–20; TEMP 36.4–37; O2SAT 91–97
[2022-07-05] MEDS: Levothyroxine Sodium 100 MCG TABLET PO (06:13)
[2022-07-05 06:57] LABS: Creatinine Clr Calc Pharmacy 44.5; Estimated Glomerular Filt Rate 49
[2022-07-05] MEDS: Morphine Sulfate ER 15 MG TABLET.ER PO (09:45)
[2022-07-05] MEDS: Magnesium Oxide 400 MG TABLET PO (09:45)
[2022-07-05] MEDS: DULoxetine HCl 60 MG CAPSULE.DR PO (09:45)
[2022-07-05] MEDS: Metoprolol Tartrate 25 MG TABLET PO ×2 (09:45→20:17)
[2022-07-05] MEDS: 0.9 % Sodium Chloride Flush 3 ML SYRINGE IVFLUSH ×3 (09:45→20:18)
[2022-07-05 10:06] LABS: Magnesium 1.7 mg/dL (1.6-2.6); Potassium 3.7 mmol/L (3.3-5.1)
--- NOTE | 2022-07-05 12:52 | P.PNIM_ITS ---
Subjective Subjective Date of Service: 07/05/22 Interval History: f/u on septic shock, obstructive uropathy, bacteremia Review of Systems no new events overnight , no abd pain, no fever. Cutlures Strep viridan and E. Feacalis Physical Exam Vital Signs: Vital Signs: Last Vital Signs Temp 98.3 F 07/05/22 11:29 Pulse 65 07/05/22 11:29 Resp 20 07/05/22 11:29 BP 144/68 H 07/05/22 11:29 Pulse Ox 97 07/05/22 11:29 O2 Del Method 07/05/22 11:29 O2 Flow Rate 2 07/01/22 18:08 Oxygen Flow Rate 3 07/01/22 11:40 BMI result Body Mass Index 25.9 General: AO X 3, no acute distress Resp:? CTA bilateral CVS: S1,S2,RRR GI: +BS, NT, no distention Skin: No rash Neuro:? motor grossly intact Psych: appropriate affect Objective Data Active Medications Acetaminophen (Acetaminophen 325 Mg Tablet) 650 mg PO Q6H PRN PRN Reason: Pain, Mild (Pain Scale 1-3) Last Admin: 07/04/22 16:08 Dose: 650 mg Documented By: DALE Atorvastatin Calcium (Atorvastatin Calcium 40 Mg Tablet) 40 mg PO BEDTIME [facility] Last Admin: 07/04/22 20:51 Dose: 40 mg Documented By: DEEPALI Bisacodyl (Bisacodyl 10 Mg Supp.Rect) 10 mg [place] DAILY PRN PRN Reason: Constipation Duloxetine HCl (Duloxetine Hcl 60 Mg Capsule.Dr) 60 mg PO DAILY [facility] Last Admin: 07/05/22 09:45 Dose: 60 mg Documented By: CALEB Piperacillin Sod/Tazobactam (Sod 4.5 gm/ Sodium Chloride) 50 mls @ 100 mls/hr IV Q6H [facility] Last Infusion: 07/05/22 10:25 Dose: 0 mls/hr Documented By: CALEB Levothyroxine Sodium (Levothyroxine Sodium 100 Mcg Tablet) 100 mcg PO DAILY@0600 [facility] Last Admin: 07/05/22 06:13 Dose: 100 mcg Documented By: DEEPALI Magnesium Hydroxide (Milk Of Magnesia 30 Ml Oral.Susp) 30 ml PO DAILY PRN PRN Reason: Constipation Magnesium Oxide (Magnesium Oxide 400 Mg Tablet) 400 mg PO DAILY [facility] Last Admin: 07/05/22 09:45 Dose: 400 mg Documented By: CALEB Melatonin (Melatonin 3 Mg Tablet) 6 mg PO BEDTIME PRN PRN Reason: Insomnia Melatonin (Melatonin 3 Mg Tablet) 3 mg PO BEDTIME [facility] Last Admin: 07/04/22 20:52 Dose: 3 mg Documented By: DEEPALI Metoprolol Tartrate (Metoprolol Tartrate 25 Mg Tablet) 25 mg PO BID [facility]; Protocol Last Admin: 07/05/22 09:45 Dose: 25 mg Documented By: CALEB Morphine Sulfate (Morphine Sulfate Er 15 Mg Tablet.Er) 15 mg PO DAILY [facility] Last Admin: 07/05/22 09:45 Dose: 15 mg Documented By: CALEB Omeprazole (Omeprazole 20 Mg/10 Ml Susp.Recon) 40 mg PO DAILY@0630 [facility] Last Admin: 07/05/22 06:13 Dose: 40 mg Documented By: DEEPALI Ondansetron HCl (Ondansetron Hcl 4 Mg/2 Ml Vial) 4 mg IVPUSH Q8H PRN PRN Reason: Nausea and Vomiting Last Admin: 07/02/22 11:08 Dose: 4 mg Documented By: ALFA Rivaroxaban (Rivaroxaban 20 Mg Tablet) 20 mg PO DAILY@1700 [facility] Last Admin: 07/04/22 16:09 Dose: 20 mg Documented By: DALE Senna (Sennosides 8.6 Mg Tablet) 8.6 mg PO BEDTIME [facility] Last Admin: 07/04/22 20:52 Dose: 8.6 mg Documented By: DEEPALI Sodium Biphosphate/Sodium Phosphate (Sodium Phosphate,[place]-Dibasic 133 Ml Enema) 118 ml [place] DAILY PRN PRN Reason: Constipation Sodium Chloride (0.9 % Sodium Chloride Flush 3 Ml Syringe) 3 ml IVFLUSH QSHIFT [facility] Last Admin: 07/05/22 09:45 Dose: 3 ml Documented By: CALEB Labs 07/03/22 05:39 07/05/22 06:05 Labs: Laboratory Results - last 24 hr 07/04/22 07/05/22 19:02 06:05 Estim Creat Clear Calc 44.5 Estimated GFR 49 Magnesium 1.7 Vancomycin Trough 4.0 L Microbiology Microbiology Results: Microbiology 07/01/22 02:06 Blood Culture - Preliminary Blood - Venous Enterococcus faecalis Gram negative ezekiel 07/01/22 Unknown Urine Culture - Final Urine Catheterized - Levy Catheter Enterococcus faecalis Streptococcus viridans group Assessment and Plan (1) Acute UTI: Status: Acute (2) Septic shock: Status: Acute (3) Kidney stone on right side: Status: Acute (4) Gram-positive bacteremia: Status: Acute Plan 77-year-old lady with underlying history AFib, hypothyroidism, prior UTI with renal stones admitted on 07/01/2022 with septic shock and Gram-positive bacteremia secondary to right obstructive renal calculus with hydronephrosis.? Patient status post stenting and resolution of right hydronephrosis on 07/01/2022.? Blood cultures growing Streptococcus and Enterococcus.? Initially required pressors, Hypotension resolved Septic shock d/t infected kidney stone, off pressors sepsis and shock resolved. Polymicrobial bacteremia (enteroccocus feacalis,and streptococcus viridan,gram negative) -continue Unasyn, change to Ceftriaxone and Flagyl repeat blood cultures added ,echo -ID consult DORON--d/t obstructive uropathy-resolved following stent HTN--Restart metoprolol and increase to 25 bid permanent AFIB-- Metoprolol as above, continue Xarelto at 20 HLD--continue Lipitor Hypothyroidism--levothyroxine reduced from 112 to 100 d/ low TSH Hypokalemia--Oral KCL GERD. PPI consider changing to H2B b/o hypomagnesemia Prophylaxis:? Xarelto Need for inpatient: Obstructive uropathy with septic shock, bacteremia and requiring IV Abx and monitoring of cultures Time Spent With Patient Time: Total time managing care of this patient today ____ minutes. Quality Stroke Does the patient have a stroke diagnosis?: No VTE Prior VTE?: No VTE Risk Level:: Medical - moderate - high VTE Device Contraindication: Treatment Not Indicated VTE Drug Contraindication: N/A - Med Ordered
[2022-07-05] MEDS: Rivaroxaban 20 MG TABLET PO (16:13)
[2022-07-05] MEDS: Melatonin 3 MG TABLET PO (20:17)
[2022-07-05] MEDS: Atorvastatin Calcium 40 MG TABLET PO (20:17)
[2022-07-06] VITALS (7 sets, daily range): BP systolic 143–168; BP diastolic 63–77; PULSE 60–70; RESP 14–19; TEMP 36.2–36.7; O2SAT 95–96
[2022-07-06] MEDS: Levothyroxine Sodium 100 MCG TABLET PO (05:53)
[2022-07-06 06:52] LABS: Creatinine Clr Calc Pharmacy 47.6; Estimated Glomerular Filt Rate 53
[2022-07-06] MEDS: Metoprolol Tartrate 25 MG TABLET PO ×2 (08:39→22:08)
[2022-07-06] MEDS: Morphine Sulfate ER 15 MG TABLET.ER PO (08:39)
[2022-07-06] MEDS: DULoxetine HCl 60 MG CAPSULE.DR PO (08:39)
[2022-07-06] MEDS: Magnesium Oxide 400 MG TABLET PO (08:40)
[2022-07-06] MEDS: 0.9 % Sodium Chloride Flush 3 ML SYRINGE IVFLUSH ×3 (08:40→22:10)
[2022-07-06] MEDS: Piperacillin Sodium/Tazobactam 4.5 GM in 0.9 % Sodium Chloride 100 ML IV ×3 (09:00→22:09)
--- NOTE | 2022-07-06 12:58 | MHC.CM.PN ---
per rounds ptm pt not medi ally cleared for dc plan remains return to [facility]
--- NOTE | 2022-07-06 15:28 | PM.EVENT ---
Event Note Date of Service: 07/06/22 Event Note: gram negative is send out ,maybe not pathogen,maybe shigella. Ampicillin for 3 weeks Time Spent With Patient Time: Total time managing care of this patient today ____ minutes.
--- NOTE | 2022-07-06 15:47 | P.PNIM_ITS ---
Subjective Subjective Date of Service: 07/06/22 Interval History: f/u on septic shock, obstructive uropathy, bacteremia Review of Systems no new events overnight , no abd pain, no fever. Cutlures Strep viridan and E. Feacalis Physical Exam Vital Signs: Vital Signs: Last Vital Signs Temp 97.4 F 07/06/22 11:03 Pulse 65 07/06/22 11:03 Resp 17 07/06/22 11:03 BP 145/70 H 07/06/22 11:03 Pulse Ox 95 07/06/22 11:03 O2 Del Method 07/06/22 11:03 O2 Flow Rate 2 07/01/22 18:08 Oxygen Flow Rate 3 07/01/22 11:40 BMI result Body Mass Index 25.9 General: AO X 3, no acute distress Resp:? CTA bilateral CVS: S1,S2,RRR GI: +BS, NT, no distention Skin: No rash Neuro:? motor grossly intact Psych: appropriate affect Objective Data Active Medications Acetaminophen (Acetaminophen 325 Mg Tablet) 650 mg PO Q6H PRN PRN Reason: Pain, Mild (Pain Scale 1-3) Last Admin: 07/04/22 16:08 Dose: 650 mg Documented By: DALE Atorvastatin Calcium (Atorvastatin Calcium 40 Mg Tablet) 40 mg PO BEDTIME [facility] Last Admin: 07/05/22 20:17 Dose: 40 mg Documented By: DEEPALI Bisacodyl (Bisacodyl 10 Mg Supp.Rect) 10 mg [place] DAILY PRN PRN Reason: Constipation Duloxetine HCl (Duloxetine Hcl 60 Mg Capsule.Dr) 60 mg PO DAILY [facility] Last Admin: 07/06/22 08:39 Dose: 60 mg Documented By: PHILLIP Piperacillin Sod/Tazobactam (Sod 4.5 gm/ Sodium Chloride) 100 mls @ 200 mls/hr IV Q6H [facility] Last Admin: 07/06/22 15:33 Dose: 200 mls/hr Documented By: PHILLIP Levothyroxine Sodium (Levothyroxine Sodium 100 Mcg Tablet) 100 mcg PO DA GOLDEN@0600 [facility] Last Admin: 07/06/22 05:53 Dose: 100 mcg Documented By: DEEPALI Magnesium Hydroxide (Milk Of Magnesia 30 Ml Oral.Susp) 30 ml PO DAILY PRN PRN Reason: Constipation Magnesium Oxide (Magnesium Oxide 400 Mg Tablet) 400 mg PO DAILY [facility] Last Admin: 07/06/22 08:40 Dose: 400 mg Documented By: PHILLIP Melatonin (Melatonin 3 Mg Tablet) 6 mg PO BEDTIME PRN PRN Reason: Insomnia Melatonin (Melatonin 3 Mg Tablet) 3 mg PO BEDTIME [facility] Last Admin: 07/05/22 20:17 Dose: 3 mg Documented By: DEEPALI Metoprolol Tartrate (Metoprolol Tartrate 25 Mg Tablet) 25 mg PO BID [facility]; Protocol Last Admin: 07/06/22 08:39 Dose: 25 mg Documented By: PHILLIP Morphine Sulfate (Morphine Sulfate Er 15 Mg Tablet.Er) 15 mg PO DAILY [facility] Last Admin: 07/06/22 08:39 Dose: 15 mg Documented By: PHILLIP Omeprazole (Omeprazole 20 Mg/10 Ml Susp.Recon) 40 mg PO DAILY@0630 [facility] Last Admin: 07/06/22 05:53 Dose: 40 mg Documented By: DEEPALI Ondansetron HCl (Ondansetron Hcl 4 Mg/2 Ml Vial) 4 mg IVPUSH Q8H PRN PRN Reason: Nausea and Vomiting Last Admin: 07/02/22 11:08 Dose: 4 mg Documented By: ALFA Rivaroxaban (Rivaroxaban 20 Mg Tablet) 20 mg PO DAILY@1700 [facility] Last Admin: 07/05/22 16:13 Dose: 20 mg Documented By: LEVONNLYM Senna (Sennosides 8.6 Mg Tablet) 8.6 mg PO BEDTIME [facility] Last Admin: 07/05/22 20:18 Dose: Not Given Documented By: DEEPALI Non-Admin Reason: pt had BM earlier today Sodium Biphosphate/Sodium Phosphate (Sodium Phosphate,[place]-Dibasic 133 Ml Enema) 118 ml [place] DAILY PRN PRN Reason: Constipation Sodium Chloride (0.9 % Sodium Chloride Flush 3 Ml Syringe) 3 ml IVFLUSH QSHIFT [facility] Last Admin: 07/06/22 08:40 Dose: 3 ml Documented By: PHILLIP Labs 07/03/22 05:39 07/06/22 05:57 Labs: Laboratory Results - last 24 hr 07/06/22 05:57 Estim Creat Clear Calc 47.6 Estimated GFR 53 Microbiology Microbiology Results: Microbiology 07/01/22 02:06 Blood Culture - Preliminary Blood - Venous Enterococcus faecalis Gram negative ezekiel 07/05/22 09:27 Blood Culture - Preliminary Blood - Venous No growth after 24 hours. 07/05/22 09:27 Blood Culture - Preliminary Blood - Venous No growth after 24 hours. Assessment and Plan (1) Acute UTI: Status: Acute (2) Septic shock: Status: Acute (3) Kidney stone on right side: Status: Acute (4) Gram-positive bacteremia: Status: Acute Plan 77-year-old lady with underlying history AFib, hypothyroidism, prior UTI with renal stones admitted on 07/01/2022 with septic shock and Gram-positive bacteremia secondary to right obstructive renal calculus with hydronephrosis.? Patient status post stenting and resolution of right hydronephrosis on 07/01/2022.? Blood cultures growing Streptococcus and Enterococcus.? Initially required pressors, Hypotension resolved Septic shock d/t infected kidney stone, off pressors sepsis and shock resolved. Polymicrobial bacteremia (enteroccocus feacalis,and streptococcus viridan,gram negative) repeat blood cultures added , echo:Conclusions: - The left ventricular systolic function is normal.? The visually estimated ejection fraction is between 55-60%. ? - The basal inferior segment is hypokinetic. ? - No obvious valvular pathology seen on this study.? ?? -ID consult--continue Unasyn, change to Ceftriaxone and Flagyl- recomended to switch to ampilcilllin upon discharge. DORON--d/t obstructive uropathy-resolved following stent HTN--Restart metoprolol and increase to 25 bid permanent AFIB-- Metoprolol as above, continue Xarelto at 20 HLD--continue Lipitor Hypothyroidism--levothyroxine reduced from 112 to 100 d/ low TSH Hypokalemia--Oral KCL GERD. PPI consider changing to H2B b/o hypomagnesemia Prophylaxis:? Xarelto Need for inpatient: Obstructive uropathy with septic shock, bacteremia and requiring IV Abx and monitoring of cultures-repeat blood cultures pendin Time Spent With Patient Time: Total time managing care of this patient today ____ minutes. Quality Stroke Does the patient have a stroke diagnosis?: No VTE Prior VTE?: No VTE Risk Level:: Medical - moderate - high VTE Device Contraindication: Treatment Not Indicated VTE Drug Contraindication: N/A - Med Ordered
[2022-07-06] MEDS: Rivaroxaban 20 MG TABLET PO (16:45)
[2022-07-06] MEDS: Sennosides 8.6 MG TABLET PO (22:09)
[2022-07-06] MEDS: Melatonin 3 MG TABLET PO (22:09)
[2022-07-06] MEDS: Atorvastatin Calcium 40 MG TABLET PO (22:09)
[2022-07-07] VITALS (9 sets, daily range): BP systolic 156–188; BP diastolic 68–86; PULSE 62–74; RESP 14–18; TEMP 36.6–36.9; O2SAT 94–98
[2022-07-07] MEDS: Piperacillin Sodium/Tazobactam 4.5 GM in 0.9 % Sodium Chloride 100 ML IV (03:33)
[2022-07-07] MEDS: Levothyroxine Sodium 100 MCG TABLET PO (05:48)
[2022-07-07 07:09] LABS: Creatinine Clr Calc Pharmacy 51.2; Estimated Glomerular Filt Rate 58
[2022-07-07] MEDS: Metoprolol Tartrate 25 MG TABLET PO ×2 (09:30→21:53)
[2022-07-07] MEDS: DULoxetine HCl 60 MG CAPSULE.DR PO (09:30)
[2022-07-07] MEDS: Morphine Sulfate ER 15 MG TABLET.ER PO (09:30)
[2022-07-07] MEDS: Magnesium Oxide 400 MG TABLET PO (09:31)
[2022-07-07] MEDS: 0.9 % Sodium Chloride Flush 3 ML SYRINGE IVFLUSH ×3 (09:31→22:53)
--- NOTE | 2022-07-07 16:36 | PM.UROPN ---
Subjective Subjective Date of Service: 07/07/22 Interval history: Improving White cell count down to 13.7 from 0.6 Culture result back showing Enterococcus faecalis resistant to Levaquin and tetracycline Will require 14 days of antibiotic therapy total Switch to oral therapy. Based on culture results Augmentin is a possibility. Follow-up in 3-4 weeks with Urology for assessment regarding secondary procedure for stones Physical Exam Vital Signs: Vital Signs: Last Vital Signs Temp 98.1 F 07/07/22 15:40 Pulse 66 07/07/22 15:40 Resp 18 07/07/22 15:40 BP 178/75 H 07/07/22 15:40 Pulse Ox 95 07/07/22 15:40 O2 Del Method 07/07/22 15:40 O2 Flow Rate 2 07/01/22 18:08 Oxygen Flow Rate 3 07/01/22 11:40 BMI result Body Mass Index 25.9 Const: General: cooperative, healthy appearing, comfortable and no acute distress Orientation/consciousness: patient oriented x3 HEENT: Face and sinus: Yes normal facial exam Mouth: moist mucous membranes Neck: Neck: Yes normal visual inspection, Yes full ROM and Yes trachea midline Chest: Chest palpation & inspection: normal inspection of the chest Resp: Effort & Inspection: normal respiratory effort, able to speak in complete sentences and no respiratory distress GI: Inspection: Yes normal to inspection Back/Spine/Pelvis: Cervical Spine: normal cervical lordosis Thoracic/Lumbar Spine: thoracic and lumbar spine normal to inspection Skin: General skin exam: no rashes or lesions noted Neuro: General: patient oriented x3, tone normal and moves all extremities Extrem: General: Yes normal to inspection and Yes capillary refill normal Urology Results Labs 07/03/22 05:39 07/07/22 06:25 Labs: Laboratory Results - last 24 hr 07/07/22 06:25 Creatinine 0.94 Estim Creat Clear Calc 51.2 Estimated GFR 58 Progress Note: A&P Assessment and plan (1) Septic shock: Status: Acute (2) Kidney stone on right side: Status: Acute Plan 4 week follow-up Urology for assessment for subsequent stone procedures Time Spent With Patient Time: Total time managing care of this patient today ____ minutes. Progress Note: Quality Stroke Does the patient have a stroke diagnosis?: No
--- NOTE | 2022-07-07 16:41 | HO.PM.IMPN ---
Subjective Subjective Date of Service: 07/07/22 Interval History: f/u on septic shock, obstructive uropathy, bacteremia Review of Systems no new events overnight , no abd pain, no fever. Cutlures Strep viridan and E. Feacalis Physical Exam Vital Signs: Vital Signs: Last Vital Signs Temp 98.1 F 07/07/22 15:40 Pulse 66 07/07/22 15:40 Resp 18 07/07/22 15:40 BP 178/75 H 07/07/22 15:40 Pulse Ox 95 07/07/22 15:40 O2 Del Method 07/07/22 15:40 O2 Flow Rate 2 07/01/22 18:08 Oxygen Flow Rate 3 07/01/22 11:40 BMI result Body Mass Index 25.9 General: AO X 3, no acute distress Resp:? CTA bilateral CVS: S1,S2,RRR GI: +BS, NT, no distention Skin: No rash Neuro:? motor grossly intact Psych: appropriate affect Objective Data Active Medications Acetaminophen (Acetaminophen 325 Mg Tablet) 650 mg PO Q6H PRN PRN Reason: Pain, Mild (Pain Scale 1-3) Last Admin: 07/04/22 16:08 Dose: 650 mg Documented By: DALE Atorvastatin Calcium (Atorvastatin Calcium 40 Mg Tablet) 40 mg PO BEDTIME [facility] Last Admin: 07/06/22 22:09 Dose: 40 mg Documented By: SARAI Bisacodyl (Bisacodyl 10 Mg Supp.Rect) 10 mg [place] DAILY PRN PRN Reason: Constipation Duloxetine HCl (Duloxetine Hcl 60 Mg Capsule.Dr) 60 mg PO DAILY [facility] Last Admin: 07/07/22 09:30 Dose: 60 mg Documented By: PHILLIP Piperacillin Sod/Tazobactam (Sod 4.5 gm/ Sodium Chloride) 100 mls @ 200 mls/hr IV Q6H [facility] Last Admin: 07/07/22 16:39 Dose: Not Given Documented By: PHILLIP Non-Admin Reason: PER Levothyroxine Sodium (Levothyroxine Sodium 100 Mcg Tablet) 100 mcg PO DAILY@0600 [facility] Last Admin: 07/07/22 05:48 Dose: 100 mcg Documented By: SARAI Magnesium Hydroxide (Milk Of Magnesia 30 Ml Oral.Susp) 30 ml PO DAILY PRN PRN Reason: Constipation Magnesium Oxide (Magnesium Oxide 400 Mg Tablet) 400 mg PO DAILY [facility] Last Admin: 07/07/22 09:31 Dose: 400 mg Documented By: PHILLIP Melatonin (Melatonin 3 Mg Tablet) 6 mg PO BEDTIME PRN PRN Reason: Insomnia Melatonin (Melatonin 3 Mg Tablet) 3 mg PO BEDTIME [facility] Last Admin: 07/06/22 22:09 Dose: 3 mg Documented By: SARAI Metoprolol Tartrate (Metoprolol Tartrate 25 Mg Tablet) 25 mg PO BID [facility]; Protocol Last Admin: 07/07/22 09:30 Dose: 25 mg Documented By: PHILLIP Morphine Sulfate (Morphine Sulfate Er 15 Mg Tablet.Er) 15 mg PO DAILY [facility] Last Admin: 07/07/22 09:30 Dose: 15 mg Documented By: PHILLIP Omeprazole (Omeprazole 20 Mg/10 Ml Susp.Recon) 40 mg PO DAILY@0630 [facility] Last Admin: 07/07/22 05:48 Dose: 40 mg Documented By: SARAI Ondansetron HCl (Ondansetron Hcl 4 Mg/2 Ml Vial) 4 mg IVPUSH Q8H PRN PRN Reason: Nausea and Vomiting Last Admin: 07/02/22 11:08 Dose: 4 mg Documented By: ALFA Rivaroxaban (Rivaroxaban 20 Mg Tablet) 20 mg PO DAILY@1700 [facility] Last Admin: 07/06/22 16:45 Dose: 20 mg Documented By: PHILLIP Senna (Sennosides 8.6 Mg Tablet) 8.6 mg PO BEDTIME [facility] Last Admin: 07/06/22 22:09 Dose: 8.6 mg Documented By: SARAI Sodium Biphosphate/Sodium Phosphate (Sodium Phosphate,[place]-Dibasic 133 Ml Enema) 118 ml [place] DAILY PRN PRN Reason: Constipation Sodium Chloride (0.9 % Sodium Chloride Flush 3 Ml Syringe) 3 ml IVFLUSH QSHIFT [facility] Last Admin: 07/07/22 09:31 Dose: 3 ml Documented By: PHILLIP Labs 07/03/22 05:39 07/07/22 06:25 Labs: Laboratory Results - last 24 hr 07/07/22 06:25 Estim Creat Clear Calc 51.2 Estimated GFR 58 Microbiology Microbiology Results: Microbiology 07/05/22 09:27 Blood Culture - Preliminary Blood - Venous No growth after 48 hours. 07/05/22 09:27 Blood Culture - Preliminary Blood - Venous No growth after 48 hours. 07/01/22 02:06 Blood Culture - Preliminary Blood - Venous Enterococcus faecalis Gram negative ezekiel Assessment and Plan (1) Acute UTI: Status: Acute (2) Septic shock: Status: Acute (3) Gram-positive bacteremia: Status: Acute Plan 77-year-old lady with underlying history AFib, hypothyroidism, prior UTI with renal stones admitted on 07/01/2022 with septic shock and Gram-positive bacteremia secondary to right obstructive renal calculus with hydronephrosis.? Patient status post stenting and resolution of right hydronephrosis on 07/01/2022.? Blood cultures growing Streptococcus and Enterococcus.? Initially required pressors, Hypotension resolved Septic shock d/t infected kidney stone, off pressors sepsis and shock resolved. Polymicrobial bacteremia (enteroccocus feacalis,and streptococcus viridan,gram negative) repeat blood cultures added? , echo:Conclusions: - The left ventricular systolic function is normal.? The visually estimated ejection fraction is between 55-60%. ? - The basal inferior segment is hypokinetic. ? - No obvious valvular pathology seen on this study.? ?? -ID consult--continue Unasyn, change to Ceftriaxone and Flagyl- recomended to switch to ampilcilllin upon discharge. DORON--d/t obstructive uropathy-resolved following stent HTN--Restart metoprolol and increase to 25 bid permanent AFIB-- Metoprolol as above,? continue Xarelto at 20 HLD--continue Lipitor Hypothyroidism--levothyroxine reduced from 112 to 100 d/ low TSH Hypokalemia--Oral KCL GERD. PPI consider changing to H2B b/o hypomagnesemia Prophylaxis:? Xarelto Need for inpatient: Obstructive uropathy with septic shock, bacteremia and requiring IV Abx and monitoring of cultures-repeat blood cultures -needs to be negative until 48hr Time Spent With Patient Time: Total time managing care of this patient today ____ minutes. Quality Stroke Does the patient have a stroke diagnosis?: No VTE Prior VTE?: No VTE Risk Level:: Medical - moderate - high VTE Device Contraindication: Treatment Not Indicated VTE Drug Contraindication: N/A - Med Ordered
[2022-07-07] MEDS: Ampicillin Sodium 2 GM in 0.9 % Sodium Chloride 100 ML IV ×2 (18:01→21:54)
[2022-07-07] MEDS: Rivaroxaban 20 MG TABLET PO (18:01)
[2022-07-07] MEDS: Atorvastatin Calcium 40 MG TABLET PO (21:53)
[2022-07-07] MEDS: Sennosides 8.6 MG TABLET PO (21:53)
[2022-07-07] MEDS: Melatonin 3 MG TABLET PO (21:54)
[2022-07-08] MEDS: Ampicillin Sodium 2 GM in 0.9 % Sodium Chloride 100 ML IV ×5 (01:19→16:44)
[2022-07-08 03:26] VITALS: BP 150/66; PULSE 72; RESP 15; TEMP 36.4; O2SAT 94
[2022-07-08] MEDS: Levothyroxine Sodium 100 MCG TABLET PO (04:22)
[2022-07-08 07:09] LABS: Creatinine Clr Calc Pharmacy 59.3; Estimated Glomerular Filt Rate > 60
[2022-07-08 08:00] VITALS: BP 152/68; PULSE 70; RESP 16; TEMP 36.3; O2SAT 96
[2022-07-08] MEDS: Morphine Sulfate ER 15 MG TABLET.ER PO (08:34)
[2022-07-08] MEDS: DULoxetine HCl 60 MG CAPSULE.DR PO (08:34)
[2022-07-08] MEDS: Magnesium Oxide 400 MG TABLET PO (08:36)
[2022-07-08] MEDS: Metoprolol Tartrate 25 MG TABLET PO (08:36)
[2022-07-08] MEDS: 0.9 % Sodium Chloride Flush 3 ML SYRINGE IVFLUSH ×2 (08:36→15:52)
[2022-07-08 08:50] LABS: Hematocrit 30.4 % (37.0-47.0); Hemoglobin 9.1 g/dl (12.0-16.0); Mean Corpuscular HGB Conc 29.9 g/dl (31.0-35.0); Mean Corpuscular Hemoglobin 26.1 pg (27.0-33.0); Mean Corpuscular Volume 87.4 fL (80.0-98.0); Platelet Count 270 X10*3/uL (160-400); Red Blood Count 3.48 X10*6/uL (4.20-5.50); Red Cell Distribution Width 18.1 % (11.0-16.0); White Blood Count 11.4 X10*3/uL (4.8-10.8)
--- NOTE | 2022-07-08 11:52 | HO.MIDLINE ---
Midline Insertion MIDLINE INSERTION Diagnosis: [Septic shock,UTI,Bacteremia] Indication: Shelter antibiotics Pertinent Labs: reviewed Technique: Using sterile technique including cap and mask, glove and drape, the left arm was prepped and draped in the usual sterile fashion of full barrier technique with CHG. Using ultrasound guidance, left basilic vein access was obtained on first attempt. A 20G X 10CM Non-PASV ST Midline was positioned. The procedure was performed in S272. Ultrasound was used to document vein patency and for needle entry. A formal ultrasound picture was recorded. [facility] Community Engagement Representative has released the line for use and it is currently dressed with a StatLock, Tegaderm, and CHG disc. Verification has been performed for blood return and line patency. Arm Circumference: 31 CM Equipment: BARD PowerGlide ST midline Catheter Type: 20G x 10CM non-PASV midline Lot #: [id number]
[2022-07-08 11:58] VITALS: BP 158/74; PULSE 74; RESP 16; TEMP 36.6; O2SAT 96
--- NOTE | 2022-07-08 12:59 | P.PNIM_ITS ---
Subjective Subjective Date of Service: 07/08/22 Interval History: f/u on septic shock, obstructive uropathy, bacteremia Review of Systems no new events overnight , no abd pain, no fever. Cutlures Strep viridan and E. Feacalis Physical Exam Vital Signs: Vital Signs: Last Vital Signs Temp 97.9 F 07/08/22 11:58 Pulse 74 07/08/22 11:58 Resp 16 07/08/22 11:58 BP 158/74 H 07/08/22 11:58 Pulse Ox 96 07/08/22 11:58 O2 Del Method 07/08/22 08:00 O2 Flow Rate 2 07/01/22 18:08 Oxygen Flow Rate 3 07/01/22 11:40 BMI result Body Mass Index 25.9 General: AO X 3, no acute distress Resp:? CTA bilateral CVS: S1,S2,RRR GI: +BS, NT, no distention Skin: No rash Neuro:? motor grossly intact Psych: appropriate affect Objective Data Active Medications Acetaminophen (Acetaminophen 325 Mg Tablet) 650 mg PO Q6H PRN PRN Reason: Pain, Mild (Pain Scale 1-3) Last Admin: 07/04/22 16:08 Dose: 650 mg Documented By: RANDI-MYAH Atorvastatin Calcium (Atorvastatin Calcium 40 Mg Tablet) 40 mg PO BEDTIME [facility] Last Admin: 07/07/22 21:53 Dose: 40 mg Documented By: SHAHZAD Bisacodyl (Bisacodyl 10 Mg Supp.Rect) 10 mg [place] DAILY PRN PRN Reason: Constipation Duloxetine HCl (Duloxetine Hcl 60 Mg Capsule.Dr) 60 mg PO DAILY [facility] Last Admin: 07/08/22 08:34 Dose: 60 mg Documented By: BETTE Ampicillin Sodium 2 gm/ Sodium (Chloride) 100 mls @ 100 mls/hr IV Q4H [facility] Last Infusion: 07/08/22 09:42 Dose: 0 mls/hr Documented By: BETTE Levothyroxine Sodium (Levothyroxine Sodium 100 Mcg Tablet) 100 mcg PO DAILY@0600 [facility] Last Admin: 07/08/22 04:22 Dose: 100 mcg Documented By: ANGIE Magnesium Hydroxide (Milk Of Magnesia 30 Ml Oral.Susp) 30 ml PO DAILY PRN PRN Reason: Constipation Magnesium Oxide (Magnesium Oxide 400 Mg Tablet) 400 mg PO DAILY [facility] Last Admin: 07/08/22 08:36 Dose: 400 mg Documented By: BETTE Melatonin (Melatonin 3 Mg Tablet) 6 mg PO BEDTIME PRN PRN Reason: Insomnia Melatonin (Melatonin 3 Mg Tablet) 3 mg PO BEDTIME [facility] Last Admin: 07/07/22 21:54 Dose: 3 mg Documented By: SHAHZAD Metoprolol Tartrate (Metoprolol Tartrate 25 Mg Tablet) 25 mg PO BID [facility]; Protocol Last Admin: 07/08/22 08:36 Dose: 25 mg Documented By: BETTE Omeprazole (Omeprazole 20 Mg/10 Ml Susp.Recon) 40 mg PO DAILY@0630 [facility] Last Admin: 07/08/22 04:21 Dose: 40 mg Documented By: ANGIE Ondansetron HCl (Ondansetron Hcl 4 Mg/2 Ml Vial) 4 mg IVPUSH Q8H PRN PRN Reason: Nausea and Vomiting Last Admin: 07/02/22 11:08 Dose: 4 mg Documented By: ALFA Rivaroxaban (Rivaroxaban 20 Mg Tablet) 20 mg PO DAILY@1700 [facility] Last Admin: 07/07/22 18:01 Dose: 20 mg Documented By: PHILLIP Senna (Sennosides 8.6 Mg Tablet) 8.6 mg PO BEDTIME [facility] Last Admin: 07/07/22 21:53 Dose: 8.6 mg Documented By: SHAHZAD Sodium Biphosphate/Sodium Phosphate (Sodium Phosphate,[place]-Dibasic 133 Ml Enema) 118 ml [place] DAILY PRN PRN Reason: Constipation Sodium Chloride (0.9 % Sodium Chloride Flush 3 Ml Syringe) 3 ml IVFLUSH QSHIFT [facility] Last Admin: 07/08/22 08:36 Dose: 3 ml Documented By: BETTE Labs 07/08/22 08:28 07/08/22 06:15 Labs: Laboratory Results - last 24 hr 07/08/22 07/08/22 06:15 08:28 MCV 87.4 MCH 26.1 L MCHC 29.9 L RDW 18.1 H Plt Count 270 D MPV 10.0 Absolute Nucleated RBC 0.000 Nucleated RBC % (auto) 0.0 Estim Creat Clear Calc 59.3 Estimated GFR > 60 Microbiology Microbiology Results: Microbiology 07/05/22 09:27 Blood Culture - Preliminary Blood - Venous No growth after 48 hours. 07/05/22 09:27 Blood Culture - Preliminary Blood - Venous No growth after 48 hours. 07/01/22 02:06 Blood Culture - Preliminary Blood - Venous Enterococcus faecalis Gram negative ezekiel Assessment and Plan (1) Acute UTI: Status: Acute (2) Septic shock: Status: Acute (3) Gram-positive bacteremia: Status: Acute Plan 77-year-old lady with underlying history AFib, hypothyroidism, prior UTI with renal stones admitted on 07/01/2022 with septic shock and Gram-positive bacteremia secondary to right obstructive renal calculus with hydronephrosis.? Patient status post stenting and resolution of right hydronephrosis on 07/01/2022.? Blood cultures growing Streptococcus and Enterococcus.? Initially required pressors, Hypotension resolved Septic shock d/t infected kidney stone, off pressors sepsis and shock resolved. Polymicrobial bacteremia (enteroccocus feacalis,and streptococcus viridan,gram negative) repeat blood cultures added? , echo:Conclusions: - The left ventricular systolic function is normal.? The visually estimated ejection fraction is between 55-60%. ? - The basal inferior segment is hypokinetic. ? - No obvious valvular pathology seen on this study.? ?? -ID consult--continue Unasyn, change to Ceftriaxone and Flagyl- recomended to switch to ampilcilllin 07/02. DORON--d/t obstructive uropathy-resolved following stent HTN--Restart metoprolol and increase to 25 bid permanent AFIB-- Metoprolol as above,? continue Xarelto at 20 HLD--continue Lipitor Hypothyroidism--levothyroxine reduced from 112 to 100 d/ low TSH Hypokalemia--Oral KCL GERD. PPI consider changing to H2B b/o hypomagnesemia Prophylaxis:? Xarelto Need for inpatient: Obstructive uropathy with septic shock, bacteremia and requiring IV Abx and monitoring of cultures-repeat blood cultures -needs to be negative until 48hr Time Spent With Patient Time: Total time managing care of this patient today ____ minutes. Quality Stroke Does the patient have a stroke diagnosis?: No VTE Prior VTE?: No VTE Risk Level:: Medical - moderate - high VTE Device Contraindication: Treatment Not Indicated VTE Drug Contraindication: N/A - Med Ordered
[2022-07-08 15:29] VITALS: BP 150/70; PULSE 65; RESP 15; TEMP 36.2; O2SAT 93
[2022-07-08] MEDS: Heparin Sodium,Porcine Flush 50 UNITS, 0.9 % Sodium Chloride Flush 5 ML IVFLUSH (15:51)
[2022-07-08 16:17] LABS: COVID-19 Test Negative (Negative); IDNOW Serial# 16C4AD1C
--- NOTE | 2022-07-08 16:42 | P.DS_ITS ---
DS: Providers Provider Date of Service: 07/08/22 Date of admission: 07/01/22 04:59 Primary care physician: Ronaldo Cartwright MD Consults: 07/01/22 05:04 Consult to Gastroenterology Stat Consulting Provider: Edi Pascual Reason for consultation: obstructive uropathy sepsis adriana Has provider been notified: No 07/03/22 07:12 Consult to Infectious Diseases Routine Consulting Provider: Nikkie Lazar Reason for consultation: bacteremia Has provider been notified: No DS: Diagnosis Discharge Diagnosis (1) Acute UTI: Status: Acute (2) Septic shock: Status: Acute (3) Gram-positive bacteremia: Status: Acute (4) Hydronephrosis, right: Status: Acute (5) Gram-negative bacteremia: Status: Acute (6) Kidney stone on right side: Status: Acute DS: Summary Hospital Course Hospital Course: 77-year-old lady with underlying history AFib, hypothyroidism, prior UTI with renal stones admitted on 07/01/2022 with septic shock and Gram-positive bacteremia secondary to right obstructive renal calculus with hydronephrosis.? Patient status post stenting and resolution of right hydronephrosis on 07/01/2022.? Blood cultures growing Streptococcus and Enterococcus.? Initially required pressors, Hypotension resolved. hospital course: Patient admitted due to septic shock in the setting of UTI and kidney stone: Patient was admitted due to septic shock , found to have bacteremia in the sett ing of right obstructive renal calculus and hydronephrosis-patient is status post stenting and resolution of hydronephrosis on 07/01/2022. Patient was started on IV antibiotic(zosyn) initially due to septic shock as well as found to have bacteremia(enteroccocus feacalis,and streptococcus viridan,gram negative),gram negative is send out ,maybe not pathogen,maybe shigella( does not need to wait for send out gram negative cultures). Patient is asymptomatic, leukocytosis improved, no fever. renal funtion improved also. echo: Grossly seems fine-EF is 55-60%,No obvious valvular pathology seen on this study.? ? Patient was on zosyn-seen by ID and case and micro ,echo reviewed: Currently recommended ampicillin for 3 weeks (end date will 07/29/22). Patient will need to follow up with Urology in 2-3 weeks for need further procedure for stones. follow up with ID outpatient also. Hypokalemia repleted and resolved. Monitor BMP outpatient. Monitor CBC , BMP, LFt Q weekly while patient is on antibiotics. Above management discussed the patient in detail length she understand and in agreement with the above plan. Time Spent with Patient Time attestation: Total time managing care of this patient today ____ minutes. Discharge coordination time: Greater than 30 minutes Quality: Safe Use of Opioids Does Pt have an Active Cancer Diagnosis on the Problem List?: No Quality: Stroke Does the patient have a stroke diagnosis?: No Physical Exam Vital Signs: Vital Signs: Last Vital Signs Temp 97.2 F 07/08/22 15:29 Pulse 65 07/08/22 15:29 Resp 15 07/08/22 15:29 BP 150/70 H 07/08/22 15:29 Pulse Ox 93 07/08/22 15:29 O2 Del Method 07/08/22 15:29 O2 Flow Rate 2 07/01/22 18:08 Oxygen Flow Rate 3 07/01/22 11:40 BMI result Body Mass Index 25.9 General: AO X 3, no acute distress Resp:? CTA bilateral CVS: S1,S2,RRR GI: +BS, NT, no distention Skin: No rash Neuro:? motor grossly intact Psych: appropriate affect DS: Data Data Completed and Pending Labs on day of discharge: Laboratory Results - last 24 hr 07/08/22 07/08/22 07/08/22 06:15 08:28 15:57 WBC 11.4 H RBC 3.48 L Hgb 9.1 L Hct 30.4 L MCV 87.4 MCH 26.1 L MCHC 29.9 L RDW 18.1 H Plt Count 270 D MPV 10.0 Absolute Nucleated RBC 0.000 Nucleated RBC % (auto) 0.0 Creatinine 0.81 Estim Creat Clear Calc 59.3 Estimated GFR > 60 COVID-19 (PASTOR) Negative COVID-19 Clin Com See Note Preliminary micro results at discharge 07/05/22 09:27 Blood Culture - Preliminary Blood - Venous No growth after 48 hours. 07/05/22 09:27 Blood Culture - Preliminary Blood - Venous No growth after 48 hours. 07/01/22 02:06 Blood Culture - Preliminary Blood - Venous Enterococcus faecalis Gram negative ezekiel Imaging Chest x-ray: Radiologist's impression: ITS Impressions Chest X-Ray 07/01/22 02:55 IMPRESSION: No acute pulmonary disease. Abdomen/Pelvis CT 07/01/22 04:24 IMPRESSION: 1. Mild right hydronephrosis with a 1.4 cm calculus at the right ureteropelvic junction. Additional bilateral renal calculi. 2. Small pleural effusions with bibasilar atelectasis. Fleischner guidelines were followed. Chest X-Ray 07/01/22 07:15 IMPRESSION: * No acute pulmonary disease compared to recent prior radiograph. * No pneumothorax after right IJ line insertion. Guidance Fluoroscopy 07/01/22 10:05 IMPRESSION: Intraprocedural fluoroscopy as detailed above. Discharge Plan Discharge Anticipated Discharge Date/Time: 07/08/22 16:18 Patient Disposition: [facility] Discharge Diagnosis: Septic shock, UTI, bacteremia , Obstructive uropathy.hypokalemia [facility] Edi Pascual MD [Physician] - 1 Week (follow up with urology) Nikkie Lazar MD [Physician] - 1 Week (follow up outpatient) Physician,Igor [Physician] - 1 Week Discharge Medications: New ampicillin sodium 2 gram Recon Soln 2 g IV Q4H Qty: 10 0RF Rx Instructions: end date for iv ampicillin 07/29/22. Continued atorvastatin 40 mg tablet 1 tab PO BEDTIME ondansetron HCl 4 mg tablet 4 mg PO Q6H PRN (Reason: Nausea And Vomiting) pantoprazole 20 mg tablet,delayed release (DR/EC) 1 tab PO DAILY@0630 morphine 15 mg tablet extended release 1 tab PO DAILY levothyroxine 112 mcg tablet 1 tab PO DAILY@0600 metoprolol tartrate 25 mg tablet 0.5 tab PO BID duloxetine 60 mg capsule,delayed release(DR/EC) 1 cap PO DAILY Xarelto 20 mg tablet 1 tab PO DAILY@1700 sennosides [senna] 8.6 mg Tablet 8.6 mg PO BEDTIME acetaminophen [Tylenol] 325 mg Tablet 650 mg PO Q4H PRN (Reason: Pain) melatonin 3 mg Tablet 3 mg PO BEDTIME magnesium oxide 400 mg (241.3 mg magnesium) Tablet 400 mg PO DAILY magnesium hydroxide [Milk of Magnesia] 400 mg/5 mL Suspension 30 ml PO DAILY PRN (Reason: Constipation) bisacodyl 10 mg Suppository 10 mg IA DAILY PRN (Reason: Constipation) Rx Instructions: use if milk of magnesia ineffective Fleet Enema 19-7 gram/118 mL Enema 118 ml IA DAILY PRN (Reason: Constipation) Rx Instructions: use is bisacodyl is ineffective Discharge Orders: Discharge Order (Routine); Ordered 07/08/22 Ordered By: Yamile Boykin Diet: Advance to usual diet Activity on Discharge: As tolerated Stand Alone Forms: Patient Portal Discharge page Care Plan Goals: Patient admitted due to septic shock in the setting of UTI and kidney stone: Patient was admitted due to septic shock , found to have bacteremia in the setting of right obstructive renal calculus and hydronephrosis-patient is status post stenting and resolution of hydronephrosis on 07/01/2022. Patient was started on IV antibiotic(zosyn) initially due to septic shock as well as found to have bacteremia(enteroccocus feacalis,and streptococcus viridan,gram negative),gram negative is send out ,maybe not pathogen,maybe shigella( does not need to wait for send out gram negative cultures). Patient is asymptomatic, leukocytosis improved, no fever. echo: Grossly seems fine-EF is 55-60%,No obvious valvular pathology seen on this study.? ? Patient was on zosyn-seen by ID and case and micro ,echo reviewed: Currently recommended ampicillin for 3 weeks (end date will 07/29/22). Patient will need to follow up with Urology in 2-3 weeks for need further procedure for stones. follow up with ID outpatient also. Hypokalemia repleted and resolved. Monitor BMP outpatient. Monitor CBC , BMP, LFt Q weekly while patient is on antibiotics. Above management discussed the patient in detail length she understand and in agreement with the above plan. Health Concerns: As above. Plan of Treatment: As above. Assessment: As above. Patient Instructions: Sepsis (GEN), Hypotension (DC), Bacteremia (DC)
[2022-07-08] MEDS: Rivaroxaban 20 MG TABLET PO (16:44)
== END 2022-07-08 18:41 | disposition skilled nursing facility (03) | DRG 853 ==
LOC: HO.ED 05:21 → HO.EDOVER 05:24 → HO.ICU 05:28 → HO.IMC 07-02 14:38
PROVIDERS: Internal Medicine; Internal Medicine Pulmonary Disease; Student in an Organized Health Care Education/Training Program; Urology; Admitting Provider Physician Assistant Medical; Emergency Provider Internal Medicine; PCP Family Medicine; Visit Provider Internal Medicine
PROC: 0T768DZ Dilation of Right Ureter with Intraluminal Device, Via Natural or Artificial Opening Endoscopic (ICD-10-PCS; principal; 2022-07-01 09:00)
DX: A41.9 Sepsis, unspecified organism (principal); R65.21 Severe sepsis with septic shock; N13.6 Pyonephrosis; N17.9 Acute kidney failure, unspecified; I48.21 Permanent atrial fibrillation; Z16.29 Resistance to other single specified antibiotic; Z16.23 Resistance to quinolones and fluoroquinolones; E87.6 Hypokalemia; E88.09 Other disorders of plasma-protein metabolism, not elsewhere classified; D63.8 Anemia in other chronic diseases classified elsewhere; M48.04 Spinal stenosis, thoracic region; D69.59 Other secondary thrombocytopenia; E03.9 Hypothyroidism, unspecified; K21.9 Gastro-esophageal reflux disease without esophagitis; Z66 Do not resuscitate; B95.2 Enterococcus as the cause of diseases classified elsewhere; E83.42 Hypomagnesemia; Z99.3 Dependence on wheelchair; Z20.822 Contact with and (suspected) exposure to COVID-19; Z87.891 Personal history of nicotine dependence; Z79.01 Long term (current) use of anticoagulants; Z79.890 Hormone replacement therapy; Z79.899 Other long term (current) drug therapy
CPT/HCPCS: 0241U; 36410; 36415; 71045; 74176; 80048; 80053; 80202; 81001; 81003; 82040; 82565; 82803; 83605; 83735; 83880; 84100; 84132; 84443; 84484; 85007; 85025; 85027; 87040; 87077; 87086; 87088; 87186; 87205; 87635; 93005; 93306; 99285; C1751; C1758; C1769; C2617; J0290; J0295; J0611; J0690; J0696; J1642; J1643; J2405; J2543; J3371; J3475; P9047; Q9967

== ENCOUNTER → 2022-08-03 09:59 | Outpatient (BNVA) | payer MEDICARE, MEDICAID, SELFPAY | PROVIDERS: PCP Family Medicine; Visit Provider Urology | DX: N13.0 Hydronephrosis with ureteropelvic junction obstruction (principal); R32 Unspecified urinary incontinence; Z79.01 Long term (current) use of anticoagulants; Z96.0 Presence of urogenital implants; N20.1 Calculus of ureter | CPT/HCPCS: 99212 ==

== ENCOUNTER → 2022-09-02 12:04 | Outpatient (BNVA) | payer MEDICARE, MEDICAID, SELFPAY | PROVIDERS: PCP Family Medicine; Visit Provider Urology | DX: N13.30 Unspecified hydronephrosis (principal); N20.1 Calculus of ureter; Z96.0 Presence of urogenital implants | CPT/HCPCS: Q3014 ==

== ENCOUNTER 2022-11-16 08:24 | Day surgery (SDC) | payer MEDICARE, MEDICAID, SELFPAY ==
--- NOTE | 2022-11-15 13:32 | HO.ANESPROP2 ---
Documented by User: Ariadne Henry NP 11/15/22 13:35 HPI - Anesthesia Eval Consult details Narrative: 77yo F for Right Lithotripsy ESW Medically optimized per SNF provider drake for afib with lovenox bridge [facility] admit 06/2022 with obstructive urosepsis PMFSH Active Problems Active Problems: All Active Problems (Updated 11/15/22 @ 06:44 by Deanna Henderson RN) Acute UTI (Acute) Septic shock (Acute) Kidney stone on right side (Acute) Gram-positive bacteremia (Acute) Hydronephrosis, right (Acute) Afib (Acute) Hypothyroidism (Acute) Gram-negative bacteremia (Acute) Obstruction of ureteropelvic junction (UPJ) due to stone (Acute) Bilateral kidney stones (Acute) Ureteral stent present (Acute) Past Medical History Medical History (Updated 11/16/22 @ 10:04 by Xiomara Conn MD) Acute UTI Anemia Anxiety Arthritis Atrial fibrillation Cerebral infarct Chronic pain CVA (cerebral vascular accident) Dementia Depression Dysthymic disorder GERD (gastroesophageal reflux disease) Gram-negative bacteremia Gram-positive bacteremia HTN (hypertension) Hydronephrosis with renal calculous obstruction Hyperlipidemia Hypothyroidism Paraplegia Septic shock Spinal stenosis, thoracic region Family History Family history of problems with anesthesia: No Surgical History History of Problems with Anesthesia: No Social History Social History Household Members: Other Household Members Other:: NA Housing: Long-Term Patient Tobacco Use Status: Former Tobacco user Tobacco use type: Cigarette e-Cigarette/Vaping Use: Never Used Second Hand Smoke Exposure: No Substance Use Type: Caffiene Advance Directives: Yes Advance Directives Information Provided: Yes Advance Directives on File: No Advance Directives Date on File: 03/11/15 service: No Current occupational status: retired Meds Allergies Allergy/AdvReac Type Severity Reaction Status Date / Time No Known Allergies Allergy Verified 09/02/22 12:05 [No Known Allergies*] Home Medications Medication Instructions Recorded Confirmed Last Taken Type acetaminophen 325 mg tablet 650 mg PO Q4H PRN Pain 07/01/22 11/15/22 Unknown History (Tylenol) bisacodyl 10 mg rectal suppository 10 mg TX DAILY PRN Constipation 07/01/22 11/15/22 Unknown History duloxetine 60 mg capsule,delayed 1 cap PO DAILY 07/01/22 11/15/22 11/16/22 History release levothyroxine 112 mcg tablet 1 tab PO DAILY@0600 07/01/22 11/15/22 11/16/22 History magnesium hydroxide 400 mg/5 mL 30 ml PO DAILY PRN Constipation 07/01/22 11/15/22 Unknown History oral suspension (Milk of Magnesia) magnesium oxide 400 mg (241.3 mg 400 mg PO DAILY 07/01/22 11/15/22 Unknown History magnesium) tablet melatonin 3 mg tablet 3 mg PO BEDTIME 07/01/22 11/15/22 Unknown History metoprolol tartrate 25 mg tablet 0.5 tab PO BID 07/01/22 11/15/22 11/16/22 History morphine 15 mg tablet,extended 1 tab PO DAILY 07/01/22 11/15/22 Unknown History release ondansetron HCl 4 mg tablet 4 mg PO Q6H PRN Nausea And Vomiting 07/01/22 11/15/22 Unknown History pantoprazole 20 mg tablet,delayed 1 tab PO DAILY@0630 07/01/22 11/15/22 11/16/22 History release rivaroxaban 20 mg tablet (Xarelto) 1 tab PO DAILY@1700 07/01/22 11/15/22 11/15/22 06:30 History sennosides 8.6 mg tablet (senna) 8.6 mg PO BEDTIME 07/01/22 11/15/22 Unknown History sodium phosphates 19 gram-7 118 ml TX DAILY PRN Constipation 07/01/22 11/15/22 Unknown History gram/118 mL enema (Fleet Enema) amino ac-protein hydro-whey 1 ea PO DAILY 11/15/22 11/15/22 Unknown History protein 10 gram-100 kcal/30 mL oral liquid (ProSource) ascorbic acid (vitamin C) 500 mg 500 mg PO DAILY 11/15/22 11/15/22 Unknown History tablet (Vitamin C) atorvastatin 40 mg tablet 40 mg PO BEDTIME 11/15/22 11/15/22 Unknown History diphenhydramine HCl 50 mg tablet 50 mg PO TID PRN Allergy Symptoms 11/15/22 11/15/22 Unknown History ferrous sulfate 325 mg (65 mg 325 mg PO DAILY 11/15/22 11/15/22 Unknown History iron) tablet (iron) Lovenox 11/16/22 11/16/22 11/15/22 06:30 History Exam Exam Date and Time: November 15, 2022 1332 Pertinent Lab Results Pertinent Lab Results: Laboratory Tests 07/03/22 07/05/22 07/08/22 05:39 06:05 06:15 WBC Hgb Hct Plt Count Sodium 143 Potassium 3.7 D Chloride 112 H Carbon Dioxide 21 L BUN 13 Creatinine 0.81 07/08/22 08:28 WBC 11.4 H Hgb 9.1 L Hct 30.4 L Plt Count 270 D Sodium Potassium Chloride Carbon Dioxide BUN Creatinine Narrative Narrative: EKG 10/2022 NSR Borderline first deg av block Assessment and Plan Assessment Anesthesia Assessment: Chart Reviewed Final Anesthetic Review Family History of Problems with Anesthesia: No History of Problems with Anesthesia: No Documented by User: Xiomara Conn MD 11/16/22 11:03 HPI - Anesthesia Eval Consult details Narrative: 77yo F for Right Lithotripsy ESW Medically optimized per SNF provider xarelto for afib with lovenox bridge. Xarelto 1 week ago. Lovenox yesterday morning 11/15/22 [facility] admit 06/2022 with obstructive urosepsis PMFSH Active Problems Active Problems: All Active Problems (Updated 11/16/22 @ 10:03 by Xiomara Conn MD) Kidney stone on right side (Acute) Gram-positive bacteremia (Acute) Hydronephrosis, right (Acute) Afib (Acute). Sinus rhythm today Hypothyroidism (Acute) Obstruction of ureteropelvic junction (UPJ) due to stone (Acute) Bilateral kidney stones (Acute) Ureteral stent present (Acute) Past Medical History Medical History (Updated 11/16/22 @ 10:04 by Xiomara Conn MD) Acute UTI Anemia Anxiety Arthritis Atrial fibrillation Cerebral infarct Chronic pain CVA (cerebral vascular accident) Dementia Depression Dysthymic disorder GERD (gastroesophageal reflux disease) Gram-negative bacteremia Gram-positive bacteremia HTN (hypertension) Hydronephrosis with renal calculous obstruction Hyperlipidemia Hypothyroidism Paraplegia Septic shock Spinal stenosis, thoracic region Social History Social History Household Members: Other Household Members Other:: NA Housing: Long-Term Patient Tobacco Use Status: Former Tobacco user Tobacco use type: Cigarette e-Cigarette/Vaping Use: Never Used Second Hand Smoke Exposure: No Substance Use Type: Caffiene Advance Directives: Yes Advance Directives Information Provided: Yes Advance Directives on File: No Advance Directives Date on File: 03/11/15 service: No Current occupational status: retired [employer] Allergies Allergy/AdvReac Type Severity Reaction Status Date / Time No Known Allergies Allergy Verified 09/02/22 12:05 [No Known Allergies*] Home Medications Medication Instructions Recorded Confirmed Last Taken Type acetaminophen 325 mg tablet 650 mg PO Q4H PRN Pain 07/01/22 11/15/22 Unknown History (Tylenol) bisacodyl 10 mg rectal suppository 10 mg TX DAILY PRN Constipation 07/01/22 11/15/22 Unknown History duloxetine 60 mg capsule,delayed 1 cap PO DAILY 07/01/22 11/15/22 11/16/22 History release levothyroxine 112 mcg tablet 1 tab PO DAILY@0600 07/01/22 11/15/22 11/16/22 History magnesium hydroxide 400 mg/5 mL 30 ml PO DAILY PRN Constipation 07/01/22 11/15/22 Unknown History oral suspension (Milk of Magnesia) magnesium oxide 400 mg (241.3 mg 400 mg PO DAILY 07/01/22 11/15/22 Unknown History magnesium) tablet melatonin 3 mg tablet 3 mg PO BEDTIME 07/01/22 11/15/22 Unknown History metoprolol tartrate 25 mg tablet 0.5 tab PO BID 07/01/22 11/15/22 11/16/22 History morphine 15 mg tablet,extended 1 tab PO DAILY 07/01/22 11/15/22 Unknown History release ondansetron HCl 4 mg tablet 4 mg PO Q6H PRN Nausea And Vomiting 07/01/22 11/15/22 Unknown History pantoprazole 20 mg tablet,delayed 1 tab PO DAILY@0630 07/01/22 11/15/22 11/16/22 History release rivaroxaban 20 mg tablet (Xarelto) 1 tab PO DAILY@1700 07/01/22 11/15/22 11/15/22 06:30 History sennosides 8.6 mg tablet (senna) 8.6 mg PO BEDTIME 07/01/22 11/15/22 Unknown History sodium phosphates 19 gram-7 118 ml TX DAILY PRN Constipation 07/01/22 11/15/22 Unknown History gram/118 mL enema (Fleet Enema) amino ac-protein hydro-whey 1 ea PO DAILY 11/15/22 11/15/22 Unknown History protein 10 gram-100 kcal/30 mL oral liquid (ProSource) ascorbic acid (vitamin C) 500 mg 500 mg PO DAILY 11/15/22 11/15/22 Unknown History tablet (Vitamin C) atorvastatin 40 mg tablet 40 mg PO BEDTIME 11/15/22 11/15/22 Unknown History diphenhydramine HCl 50 mg tablet 50 mg PO TID PRN Allergy Symptoms 11/15/22 11/15/22 Unknown History ferrous sulfate 325 mg (65 mg 325 mg PO DAILY 11/15/22 11/15/22 Unknown History iron) tablet (iron) Lovenox 11/16/22 11/16/22 11/15/22 06:30 History Exam Height,Weight and Vital Signs: Height 5 ft 6 in Weight 79.379 kg Vital Signs Temp Pulse Resp BP Pulse Ox O2 Del Method 11/16/22 09:08 98.4 F 71 18 154/63 H 98 Room Air Pertinent Lab Results Pertinent Lab Results: Laboratory Tests 07/03/22 07/05/22 07/08/22 05:39 06:05 06:15 WBC Hgb Hct Plt Count Sodium 143 Potassium 3.7 D Chloride 112 H Carbon Dioxide 21 L BUN 13 Creatinine 0.81 07/08/22 08:28 WBC 11.4 H Hgb 9.1 L Hct 30.4 L Plt Count 270 D Sodium Potassium Chloride Carbon Dioxide BUN Creatinine Lab Results 11/16/22 Range/Units 09:27 POC Glucose 134 H (60-115) mg/dL Airway Mallampati Class: II TM Dist: >3cm Neck ROM: Full Loose/Missing/Broken Teeth: No (Denies broken, loose, missing teeth) Heart: RRR Lungs: CTAB Assessment and Plan Assessment Anesthesia Assessment: Anesthesia Plan Discussed Final Anesthetic Review NPO: Yes ASA Class: III Final Preanesthetic Review: No Changes in Pt Med Stat, Meds/Allgs Chart Reviewed, Consent Obtained/Reviewed, Anes Risks/Benef Reviewed and DNR Form (If Appl.) (DNR order suspended leighann-op) Patient Risk: Intermediate Procedure Risk: Low Assessment/Block/Sedation in SS: Assess/Block/Sedation-SS Anesthetic Plan Anesthetic Plan: GA Disposition: Standard PACU
--- NOTE | ~2022-11-16 | XR_ITS ---
EXAMINATION: XR ABDOMEN KUB CLINICAL INDICATION: Preop right renal stone COMPARISON: CT abdomen pelvis 07/01/2022 TECHNIQUE: AP view of the abdomen. FINDINGS: An internally dwelling right sided double-J ureteral stent is present. Multiple stone fragments are seen in the right kidney with the largest at the lower pole measuring about 1.7 cm. Stone burden appears considerably less than it did at the time of the 07/01/2022 CT scan, but considerable stones remain. No evidence of bowel obstruction. Degenerative changes and scoliosis are again seen in the spine. Partial visualization of posterior lower thoracic spine fixation. XR/XR KUB IMPRESSION: Right-sided double-J ureteral stent in good position. Multiple stone fragments remain in the right kidney.
--- NOTE | 2022-11-16 07:38 | MHC.SHP ---
Pre-Procedural Eval Section A Date of Service: 11/16/22 The patient is an INPATIENT: No The History & Physical has been completed within 30 days and I have reviewed it.: No Section B Chief Complaint: Calculus of kidney, right Details of Present Illness: 77 year old female with right nephrolithiasis. h/o afib, Patient was instructed to stop Xaralto on lovenox bridge per medical provider. Relevant Family History (Specify if Yes): No Relevant Social History: None Present Medications: see Short Stay Collaborative assessment Allergies: Allergies Allergy/AdvReac Type Severity Reaction Status Date / Time No Known Allergies Allergy Verified 09/02/22 12:05 [No Known Allergies*] Review of Systems Review of Systems Comment: 10 point ROS negative other than stated in HPI Exam Surgical H&P Exam: Normal: HEENT, Normal: Heart, Normal: Lungs, Normal: Skin and Normal: Neurological Plan Diagnosis/Plan: Unchanged I have reviewed the history and physical and performed a pertinent physical examination on my patient. No changes have occurred unless specified. Right ESWL. Discussed risks to include but not limited to, blood in the urine, bruising to the skin, kidney hematoma, possible need for another procedure if a stone fragment obstructs the ureter while passing, possible need to repeat procedure if stone is not completely fragmented. Time Spent With Patient Time: Total time managing care of this patient today ____ minutes.
[2022-11-16 09:08] VITALS: BP 154/63; PULSE 71; RESP 18; TEMP 36.9; O2SAT 98
[2022-11-16 09:12] VITALS: BMI 28.2
[2022-11-16 09:33] LABS: Glucose, Whole Blood 134 mg/dL (60-115)
--- NOTE | 2022-11-16 11:13 | PC.NURSE ---
pt moves all her extremities pt is bed bound
--- NOTE | 2022-11-16 11:13 | PC.NURSE ---
st cath bper dr blum orders and urine sent
[2022-11-16 12:08] VITALS: BP 136/59; PULSE 65; RESP 13; TEMP 36.4; O2SAT 99
[2022-11-16 12:13] VITALS: BP 124/56; PULSE 63; RESP 14; O2SAT 99
[2022-11-16 12:18] VITALS: BP 123/56; PULSE 63; RESP 17; O2SAT 97
[2022-11-16 12:23] VITALS: BP 119/59; PULSE 72; RESP 18; O2SAT 97
--- NOTE | 2022-11-16 12:27 | W.PM.OPN ---
Operative Note Operative Note Date of Service: 11/16/22 Narrative: PreOperative Diagnosis:? ? Right Renal stone Post Operative Diagnosis:?Right? Renal stone Procedure:?Right? ESWL Surgeon:?Dr Krista Man Anesthesia:? General Indications for procedure: The patient understands ESWL may be a staged procedure and subsequent intervention may be required based on imaging after ESWL.? They also understand? there is a risk of bleeding to the kidney, infection, damage to adjacent organs, and stone migration following the procedure. - Imaging Muliple stones Right Kidney largest 17 mm in the lower pole, right ureteral stent in situ Procedure: After informed consent was verified the patient was brought to the operating room and placed in a supine position.? Anesthesia was performed per protocol. Safety pause time-out was performed. Imaging was displayed in the room and laterality confirmed. ESWL was performed.?The stone was visualized on both fluoroscopy and ultrasound.? Shockwave lithotripsy was performed, on the largest upper pole stone, the first 300 shocks at 60 hertz.? A pause for 3 minutes.? A total of 2500 shocks to a maximum of power of 18 with a maximum rate of 120 hertz.? Good fragmentation of the stone was appreciated. The patient tolerated the procedure well and was transferred to the recovery area upon completion. Complications: None
[2022-11-16 12:37] VITALS: BP 121/57; PULSE 69; RESP 20; TEMP 36.6; O2SAT 99
== END 2022-11-16 13:45 | disposition home or self-care (01) ==
PROVIDERS: PCP Family Medicine; Visit Provider Urology
PROC: (CPT 50590; principal; 2022-11-16 09:50)
DX: N20.0 Calculus of kidney (principal); D64.9 Anemia, unspecified; I48.91 Unspecified atrial fibrillation; G89.29 Other chronic pain; E78.5 Hyperlipidemia, unspecified; E03.9 Hypothyroidism, unspecified; F41.8 Other specified anxiety disorders; G95.89 Other specified diseases of spinal cord; G82.20 Paraplegia, unspecified; M48.04 Spinal stenosis, thoracic region; Z79.899 Other long term (current) drug therapy; Z79.01 Long term (current) use of anticoagulants; Z86.73 Personal history of transient ischemic attack (TIA), and cerebral infarction without residual deficits; Z86.718 Personal history of other venous thrombosis and embolism; Z66 Do not resuscitate
CPT/HCPCS: 50590; 74018; 82947; 87070; 87086; 87088; 87186; 87205; J0131; J0690; J1956; J2405; J3010